=== PATIENT | female | born 1945 | race Caucasian/White ===

== ENCOUNTER 2023-02-19 14:06 | Emergency (ER) | payer MEDICARE, OTHER, SELFPAY ==
[2023-02-19 14:07] VITALS: BP 144/106; PULSE 121; RESP 16; TEMP 36.6; O2SAT 98
--- NOTE | 2023-02-19 14:12 | RAD_ITS ---
STUDY: X-RAY - LEFT WRIST REASON FOR EXAM: Female, 78 years old. Pain and deformity following a fall. TECHNIQUE: 3 view(s) of the wrist were obtained. COMPARISON: None. FINDINGS: Comminuted fracture of the distal radial metaphysis with dorsal dislocation of the distal fracture fragment. Normal radiocarpal articulation. Normal distal radioulnar articulation. Normal carpal bones. Normal carpal articulations. Normal carpometacarpal articulation of the thumb. Normal second through fifth carpometacarpal articulations. Normal visualized metacarpal bones. Soft tissue swelling. RAD/Wrist min 3 Views IMPRESSION: Comment a fracture of the distal radial metaphysis with dorsal dislocation of the distal fracture fragment. Diffuse soft tissue swelling. Electronically Signed: Vinny Dai MD at 14:28 EDT ,
--- NOTE | 2023-02-19 15:40 | EX.ED.UPPERE ---
HPI History of Present Illness HPI Narrative: Injury left wrist status post fall approximately 2 hours prior to presentation Chief Complaint: Upper Extremity Injury Informant: patient Occured/Mechanism Mechanism/Context: Yes fall and Yes same level fall Comment: And slipped on dust since their house is being remodeled. She stepped down hit the sergey floor fell with her arm outstretched. She presents with obvious deformity to the left wrist. Onset/Context/Timing Onset: Hours Context: Sudden Onset Timing: Continuous Quality of Pain: Dull Current Severity: Mild Maximum Severity: Moderate Worsened by: Movement Relieved by: Remaining still Associated Symptoms Associated Symptoms: Positive for Loss of Funtion; Negative for Parasthesia or Weakness Narrative Narrative: Patient is a 27-year-old woman who presents with injury to her left wrist status post fall. Patient denies paresthesia, anesthesia motors. Patient denies prior injury to the left wrist. She has history of wrist fracture, compound left tibial and fibular fracture as well as fracture of bones in her back. She does not have a local orthopedist since she relocated with family to from [place]. She is on no anticoagulant. She ate at [employer] with her son at 1215. She denies allergy to egg products or soy products. Tetanus Immunization: 5-10 years Prior similar symptoms: Yes Recent Illness/Hospitalization: No PFSH PFSH Medical History (Updated 02/19/23 @ 19:[address] Ravindra Young MD) Aortic aneurysm Back fracture Bowel obstruction Breast cancer Broken bones Cataracts, both eyes COPD (chronic obstructive pulmonary disease) Esophageal spasm HTN (hypertension) Migraine Osteoporosis Home Medications oxycodone-acetaminophen 5 mg-325 mg tablet 1 tab PO Q6H PRN PRN pain 5 days #20 TABLETS 02/19/23 [Rx Last Taken Unknown] Allergy/AdvReac Type Severity Reaction Status Date / Time hydrocodone Allergy Itching Verified 02/19/23 14:11 fentanyl AdvReac SENSITIVE Verified 02/19/23 14:11 hydrochlorothiazide AdvReac SUN Verified 02/19/23 14:11 SENSITIVITY Family History (Updated 02/19/23 @ 16:09 by Herlinda Laws) Father Lung cancer Surgical History (Updated 02/19/23 @ 16:09 by Herlinda Laws) H/O section H/O hemorrhoidectomy History of bowel resection History of tonsillectomy Hx of appendectomy Social History (Updated 02/19/23 @ 16:09 by Herlinda Laws) household members: family housing: house number of children: 3 pets and animals: Yes Smoking Status: Light Smoker (<10/day) substance use type: does not use ROS ROS ED Constitutional Constitutional ED: Denies chills, fever(s) or subjective Musculoskeletal Musculoskeletal: Denies back pain, myalgias or neck pain Integumentary Denies Abrasions or rash Neurologic Neurologic: Denies paresthesias or weakness Hematologic/Lymphatic Hematologic/Lymphatic: Denies easy bleeding or easy bruising EXAM Physical Exam Const Vital Signs: 02/19/23 14:07 Temperature 97.8 F Temperature Source Temporal Pulse Rate 121 H Respiratory Rate 16 Blood Pressure 144/106 H Blood Pressure Mean 118 Pulse Ox 98 Oxygen Delivery Method Room Air Positive well nourished and well developed General Appearance ED: well developed and NAD; Negative for cyanotic or diaphoretic HEENT Reports moist mucous membranes normocephalic and atraumatic Eyes PERRL and EOMs intact bilaterally Neck full ROM and supple Resp normal respiratory effort and clear to auscultation bilaterally Cardio regular rate, regular rhythm, S1 normal heart sound, S2 normal heart sound and no murmurs Extremity Negative for normal to inspection Extremity Narrative: Is a silver-fork deformity of her left wrist. Median, radial and ulnar function intact. Sensation of her thumb and digits are intact. Capillary refill of her digits is normal. There is no subungual hematoma noted. Neuro oriented x3, CN's II-XII intact bilaterally, no focal motor deficits and no sensory deficits noted Sensorium / Orientation: alert Psych mental status grossly normal Skin Lesions: no lesions Rashes: no rashes MDM MDM MDM Narrative Medical decision making narrative: Placed per nurse protocol. Patient has a comminuted distal radial fracture with bayonet apposition. There is significant soft tissue swelling. There appears to be fracture of the ulnar styloid. Patient will require reduction. IV was established. Patient was made NPO. She received Zosyn and morphine. Will place patient in finger traps and anesthetized by hematoma block. If this is unsuccessful will sedate using propofol. Patient states she is had propofol in the past and has had no problems. Radiography Diagnostic Testing: Clinical Impression(s) from Imaging Studies Wrist X-Ray 02/19/23 14:12 IMPRESSION: Comment a fracture of the distal radial metaphysis with dorsal dislocation of the distal fracture fragment. Diffuse soft tissue swelling. Electronically Signed: Vinny Dai MD at 14:28 EDT , Procedures Other Procedures Procedure(s): Hematoma block with 10 cc of 1% lidocaine Patient required supplementation because of time it took in finger traps. An additional 5 cc of 1% lidocaine was infused. Patient was placed in finger traps. 1 to 2 pounds was added every 15 minutes for a total of 8 pounds. Patient was taken out of fingertrap. Reduction was undertaken. Patient was placed in an AP short arm splint. Postreduction film reveals loss of volar tilt. There is an intra-articular component. There is no significant offset and is acceptable. Dr. San who is on fourth [facility] was paged. He looked at film. States it was acceptable. He would like patient to call office tomorrow to be seen next Friday or Friday. Discharge Plan Triage Chief Complaint: Upper Extremity Injury ED Provider: Ravindra Young Dx/Rx/DC Orders Clinical Impression: Intra-articular fracture of distal end of left radius with volar angulation Instructions: ED Fracture, Wrist, General Prescriptions: New oxycodone-acetaminophen [oxycodone-acetaminophen] 5-325 mg tablet 1 tab PO Q6H PRN PRN (Reason: pain) 5 Days Qty: 20 0RF Primary Care Provider: Care Physician,No Primary Referrals: Yinka San DO [[facility] Staff - Active Staff] - 5-7 Days [facility] Doctor,Out of [Non-Staff] - Activity Restrictions/Additional Instructions: 1. Elevate your wrist is much as possible during the day. My definition of elevation is above your nose 2. Apply ice 6-10 times a day 3. Call Dr. San's office in the morning to be seen next week on Friday or Friday Disposition Disposition: Home, Self Care
[2023-02-19] MEDS: Lidocaine 1% (20 ml mdv) 20 ML Vial 10 ML INFILT (15:56)
[2023-02-19] MEDS: Morphine 2 MG/ML Syringe IV ×3 (15:56→19:27)
[2023-02-19] MEDS: Ondansetron 4 MG/2 ML Vial IV (15:56)
--- NOTE | 2023-02-19 19:35 | RAD_ITS ---
STUDY: X-RAY - LEFT RADIUS AND ULNA REASON FOR EXAM: Female, 78 years old. REDUCTION TECHNIQUE: 2 view(s) of the forearm. COMPARISON: None. FINDINGS: There is no demonstrated soft tissue swelling. Plaster splint obscures detail. Comminuted intra-articular impacted fracture distal radius and ulna. Alignment appears improved. RAD/Forearm 2 Views IMPRESSION: Improved alignment of distal radial and ulnar fractures Electronically Signed: Frederick Lorenzo MD at 19:57 EDT ,
[2023-02-19 20:20] VITALS: RESP 16
== END 2023-02-19 21:04 | disposition home or self-care (01) ==
PROVIDERS: Emergency Provider Emergency Medicine; Visit Provider Emergency Medicine
DX: S52.572A Other intraarticular fracture of lower end of left radius, initial encounter for closed fracture (principal); F17.200 Nicotine dependence, unspecified, uncomplicated; W18.30XA Fall on same level, unspecified, initial encounter
CPT/HCPCS: 29125; 73090; 73110; 96374; 96375; 96376; 99284; A4216; J2405

== ENCOUNTER 2023-06-18 08:37 | Outpatient (CLI) | payer MEDICARE, OTHER, SELFPAY ==
[2023-06-18 10:06] LABS: Absolute Lymphocyte Count 2.01 X10^3/uL (0.83-4.51); Absolute Neutrophil Count 3.6 X10^3/uL (2.0-7.7); Basophil# 0.08 X10^3/uL; Basophil% 1.2 % (0-1); Eosinophil# 0.39 X10^3/uL; Eosinophils% 5.8 % (0-5); Hematocrit 45.5 % (37-47); Hemoglobin 14.5 g/dL (12.0-15.0); Lymphocyte # 2.01 X10^3/ul (0.83-4.51); Mean Corp Hgb Conc 31.9 g/dL (32-36); Mean Corpuscular Hgb 32.1 pg (27.0-32.0); Mean Corpuscular Volume 100.7 fL (81-99); Mean Platelet Vol. 9.7 fl (6.2-12.0); Monocyte# 0.63 X10^3/uL; Monocyte% 9.4 % (0-10); NRBC Flagged by Analyzer 0 % (0-5); Neutrophil # 3.55 X10^3/uL (2.7-7.7); Neutrophil % 53.2 % (47-70); Platelet Count 339 K/mm3 (150-450); RBC Distribution Width CV 12.7 % (11.6-14.6); RBC Distribution Width SD 47.1 fl (35.1-43.9); Red Blood Count 4.52 M/mm3 (4.2-5.4); White Blood Count 6.7 K/mm3 (4.4-11.0)
[2023-06-18 10:30] LABS: Vitamin D,25 Hydroxy 55.8 ng/mL
[2023-06-18 10:49] LABS: ALB/GLOB Ratio 0.9 RATIO (0.9-2.4); AST(SGOT) 19 U/L (15-37); Alanine Aminotransfer ALT/SGPT 26 U/L (13-56); Albumin, Serum 3.6 g/dL (3.2-5.0); Alkaline Phosphatase 104 U/L (45-117); Anion Gap 3 (5-15); BUN 14 mg/dL (7-18); Calcium,Total 9.1 mg/dL (8.5-10.1); Chloride 109 mmol/L (98-107); Cholesterol 115 mg/dL (200); Creatinine, Serum 0.88 mg/dL (0.55-1.02); EST Glomerular Filtration Rate 67 mL/min (>60); Est Glom Filt Rate - Afr Amer 81 mL/min (>60); Globulin 3.8 g/dL (2.2-4.2); Glucose 110 mg/dL (74-106); High Density Lipoprotein 57 mg/dL; Potassium 4.3 mmol/L (3.5-5.1); Protein, Total 7.4 g/dL (6.4-8.2); Sodium Level 141 mmol/L (136-145); Thyroid Stim Hormone (TSH) 0.01 uIU/mL (0.358-3.74); Triglycerides 87 mg/dL; Very Low Density Lipoprotein 17 mg/dL (5-40)
== END 2023-06-18 23:59 | disposition home or self-care (01) ==
LOC: MFPLAB 08:38
PROVIDERS: Visit Provider Family Medicine
DX: I71.40 Abdominal aortic aneurysm, without rupture, unspecified (principal); M81.0 Age-related osteoporosis without current pathological fracture; I10 Essential (primary) hypertension
CPT/HCPCS: 36415; 80053; 80061; 82306; 84443; 85025

== ENCOUNTER → 2023-07-03 | Outpatient (CLI) | payer MEDICARE, OTHER, SELFPAY ==
[2023-07-03 11:11] LABS: T4 Free Direct 1.59 ng/dL (0.76-1.46); Thyroid Stim Hormone (TSH) 0.01 uIU/mL (0.358-3.74)
[2023-07-04 06:09] LABS: Thyroid Peroxidase AB 81 IU/mL (0-34)
== END | disposition home or self-care (01) ==
LOC: MFPLAB 09:07
PROVIDERS: PCP Family Medicine; Visit Provider Family Medicine
DX: R79.89 Other specified abnormal findings of blood chemistry (principal); I10 Essential (primary) hypertension
CPT/HCPCS: 36415; 84439; 84443; 84481; 86376

== ENCOUNTER 2023-07-24 08:32 | Outpatient (CLI) | payer MEDICARE, OTHER, SELFPAY ==
--- NOTE | 2023-07-24 08:36 | AAVD_ITS ---
Reason For Study: aneurysm Aorta Measurements Aorta Doppler Measurements Proximal aorta measures2.45 x 2.29cm. in cross- Peak systolic flow velocities within the proximal sectional axis. aorta measure 72.3 cm/sec. Proximal aorta measures2.34cm. in longitudinal Peak systolic flow velocities within the mid aorta axis. measure 74.1 cm/sec. Mid aorta measures2.11 x 2.34cm. in cross- Peak systolic flow velocities within the distal sectional axis. aorta measure 77.7 cm/sec. Mid aorta measures2.19cm. in longitudinal axis. Distal aorta measures2.59 x 2.71cm. in cross- sectional axis. Distal aorta measures2.55cm. in longitudinal axis. Left Iliac Artery Left iliac artery measures .71 x .82 cm. in the cross-sectional axis. Left iliac artery measures .8 cm. in the longitudinal axis. Peak systolic velocity in the left iliac artery measures 90.4 cm/sec. Right Iliac Artery Right iliac artery measures .81 x .83 cm. in the cross-sectional axis. Right iliac artery measures .83 cm. in the longitudinal axis. Peak systolic velocity in the right iliac artery measures 81.4 cm/sec. VL/Abd Aortic/IVC Duplex scan Interpretation Summary The intra-abdominal aorta appears ectatic, though not frankly aneurysmal. The i liac arteries appear normal in caliber bilaterally. The intra-abdominal aorta and iliac arteries are patent, demonstrating normal, pulsatile arterial flow and normal peak systolic velociti es. Ordering Physician: Armen Durbin Referring Physician: Armen Durbin Performed By: Mathew Hilton RVT
== END 2023-07-24 23:59 | disposition home or self-care (01) ==
LOC: US 08:33
PROVIDERS: PCP Family Medicine; Referring Provider Family Medicine; Visit Provider Family Medicine
DX: I71.40 Abdominal aortic aneurysm, without rupture, unspecified (principal)
CPT/HCPCS: 93978

== ENCOUNTER → 2023-07-28 | Outpatient (CLI) | payer MEDICARE, OTHER, SELFPAY ==
--- NOTE | 2023-07-28 10:32 | ECHOD_ITS ---
Reason For Study: AORTIC ANEURYSM Procedure This was a 2D Doppler, Color Flow transthoracic echocardiogram. Exam performed in department. Left Ventricle Normal LV size. Left ventricular systolic function is normal. The estimated ejection fraction is 65 %. No regional wall motion abnormalities noted. Right Ventricle Normal RV size. Normal systolic function. Atria Normal left atrium. Normal right atrium. Mitral Valve Mild diffuse mitral valve thickening. Tricuspid Valve Mild diffuse thickening of the tricuspid valve. Mild to moderate (1-2+) tricuspid valve insufficiency. Pulmonary artery systolic pressure is 48 mmHg. Aortic Valve Trisinus/trileaflet aortic valve. Pulmonic Valve Normal pulmonic valve. Great Vessels Moderately dilated aortic root. The pulmonary artery is normal size. Inferior vena cava collapse with respiration. Pericardium/Pleural No pericardial effusion. MMode/2D Measurements & Calculations LVIDd: 4.2 cm IVSd: 1.2 cm LVOT diam: 1.9 cm LVIDs: 2.9 cm LVPWd: 0.92 cm LVOT area: 2.8 cm2 RVDd: 3.7 cm FS: 30.6 % Ao root diam: 4.4 cm LAV(MOD-sp2): 56.7 ml LVAd ap4: 20.8 cm2 LVLd ap4: 6.6 cm EDV(MOD-sp4): 53.3 ml EDV(sp4-el): 55.5 ml LVAs ap4: 11.1 cm2 LVLs ap4: 5.5 cm ESV(MOD-sp4): 19.3 ml ESV(sp4-el): 19.1 ml EF(MOD-sp4): 63.8 % EF(sp4-el): 65.6 % SV(MOD-sp4): 34.0 ml SV(sp4-el): 36.4 ml LA A4 area: 17.3 cm2 LA dimension(2D): 3.2 cm RA A4 area: 14.3 cm2 TAPSE: 1.9 cm Time Measurements MV dec time: 0.19 sec Doppler Measurements & Calculations MV E max napoleon: 74.7 cm/sec Lat Peak E' Napoleon: 10.4 cm/sec Med Peak E' Napoleon: 5.6 cm/sec MV A max napoleon: 53.8 cm/sec E/E' lat: 7.2 E/E' med: 13.2 MV E/A: 1.4 MV V2 max: 68.8 cm/sec Ao V2 max: 132.3 cm/sec MV max P.9 mmHg MV dec slope: 402.3 cm/sec2 Ao max P.0 mmHg MV V2 mean: 43.1 cm/sec Ao V2 mean: 92.3 cm/sec MV mean P.82 mmHg Ao mean P.9 mmHg MV V2 VTI: 31.4 cm Ao V2 VTI: 33.7 cm AV (velocity ratio): 0.55 MVA(VTI): 1.7 cm2 DUTCH(I,D): 1.6 cm2 DUTCH(V,D): 1.6 cm2 LV V1 max: 73.9 cm/sec SV(LVOT): 52.7 ml PA V2 max: 105.0 cm/sec LV V1 max P.2 mmHg PA V2 mean: 80.0 cm/sec LV V1 mean P.1 mmHg LV V1 mean: 47.5 cm/sec LV V1 VTI: 18.7 cm TR max napoleon: 329.4 cm/sec TR max P.4 mmHg ECHO/Echo Complete Interpretation Summary Normal LV size. Left ventricular systolic function is normal. The estimated ejection fraction is 65 %. Moderately dilated aortic root. Pulmonary artery systolic pressure is 48 mmHg. Ordering Physician: Armen Durbin Referring Physician: Armen Durbin Performed By: Twila Sheikh RCS
--- NOTE | 2023-07-28 10:32 | US_ITS ---
STUDY: THYROID ULTRASOUND REASON FOR EXAM: Female, 78 years old. Abnormal findings in blood TECHNIQUE: Ultrasound evaluation of the thyroid was performed with real-time and static kerr-scale imaging. COMPARISON: None. FINDINGS: RIGHT LOBE: The right lobe of the thyroid gland measures 3.9 cm x 1.6 cm x 1.4 cm. There is a heterogeneous echotexture. There are no demonstrated solid, cystic or complex lesions. Increased vascularity. LEFT LOBE: The left lobe of the thyroid gland measures 3.9 cm x 1.5 cm x 1.2 cm. There is a heterogeneous echotexture. There are no demonstrated solid, cystic or complex lesions. Increased vascularity. ISTHMUS: The isthmus measures 1.1 mm. The regional lymph nodes are normal. US/Thyroid IMPRESSION: Heterogeneous echotexture of both lobes of the thyroid gland. Increased vascularity of both lobes. No focal lesion is seen. Electronically Signed: Vinny Dai MD at 12:02 EDT ,
== END | disposition home or self-care (01) ==
LOC: CVS 10:31
PROVIDERS: PCP Family Medicine; Referring Provider Family Medicine; Visit Provider Family Medicine
DX: I71.21 Aneurysm of the ascending aorta, without rupture (principal); R79.89 Other specified abnormal findings of blood chemistry
CPT/HCPCS: 76536; 93306

== ENCOUNTER → 2023-07-29 | Outpatient (CLI) | payer MEDICARE, OTHER, SELFPAY ==
--- NOTE | 2023-07-29 09:28 | BI_ITS ---
MAMMOGRAPHY - BILATERAL SCREENING REASON FOR EXAM: Female, 78 years old. Routine annual screening examination. PERTINENT HISTORY: Personal history of breast cancer. Prior left lumpectomy with left axillary node dissection and radiation therapy. TECHNIQUE: Digital bilateral breast carine (3D mammographic acquisition) in the CC and MLO projections. 2-D mediolateral oblique (MLO) and craniocaudad (CC) views of both breasts were obtained. CAD: Full Field Digital Mammography with Computer Added Detection was performed. COMPARISON: Comparison is made with prior outside examination dated April 11, 2022. FINDINGS: Breast Composition: The breasts are heterogeneously dense, which may obscure small masses. There are no dominant masses or suspicious calcifications. The patient is status post lumpectomy in the upper lateral deep portion of the left breast with resultant postoperative scarring and breast deformity. Surgical clips are seen in the left axilla. No other significant abnormalities are identified. There has been no significant change since the prior study. BI/SCRN MAMM (CAD)W/CARINE BILAT IMPRESSION: Stable bilateral screening mammogram. Yearly follow-up mammogram recommended. (A) ASSESSMENT CATEGORY: BIRADS Category 2: Benign. A letter regarding these results will be sent to the patient by the facility within 30 days. Approximately 10% of breast cancers are not detected by mammography. A normal mammogram should not delay biopsy of a clinically suspicious abnormality. [id number] Electronically Signed: Vinny Dai MD at 12:25 EDT ,
== END | disposition home or self-care (01) ==
LOC: OPBI 09:27
PROVIDERS: PCP Family Medicine; Referring Provider Family Medicine; Visit Provider Family Medicine
DX: Z12.31 Encounter for screening mammogram for malignant neoplasm of breast (principal)
CPT/HCPCS: 77063; 77067

== ENCOUNTER → 2024-01-27 | Outpatient (CLI) | payer MEDICARE, OTHER, SELFPAY ==
[2024-01-27 12:47] LABS: T4 Free Direct 1.36 ng/dL (0.76-1.46); Thyroid Stim Hormone (TSH) 0.036 uIU/mL (0.358-3.740)
[2024-02-11 01:07] LABS: Anti-Thyroglobulin AB 10.5 IU/mL (0.0-0.9); Thyroglobulin RIA 3.4 ng/mL (.)
== END | disposition home or self-care (01) ==
LOC: MFPLAB 10:52
PROVIDERS: PCP Family Medicine; Visit Provider Family Medicine
DX: R79.89 Other specified abnormal findings of blood chemistry (principal); I10 Essential (primary) hypertension
CPT/HCPCS: 36415; 84432; 84439; 84443; 86800

== ENCOUNTER → 2024-02-06 | Outpatient (CLI) | payer MEDICARE, OTHER, SELFPAY ==
--- NOTE | 2024-02-06 09:02 | ECHOD_ITS ---
Reason For Study: DILATED AORTIC ROOT Procedure This was a 2D Doppler, Color Flow transthoracic echocardiogram. Exam performed in department. Left Ventricle Normal LV size. Left ventricular systolic function is normal. The left ventricular ejection fraction is 55 %. Stage 1 diastolic dysfunction. No regional wall motion abnormalities noted. Right Ventricle Normal RV size. Normal systolic function. Atria Normal left atrium. Normal right atrium. Mitral Valve Normal mitral valve. Mild-Moderate (1-2+) eccentric mitral valve insufficiency. Tricuspid Valve Normal tricuspid valve. Mild (1+) tricuspid valve insufficiency. Aortic Valve Trisinus/trileaflet aortic valve. Mild (1+) eccentric aortic valve insufficiency. Pulmonic Valve Normal pulmonic valve. Great Vessels Moderately dilated aortic root. Ascending aorta measures 4.5cm. The pulmonary artery is normal size. Normal inferior vena cava. Pericardium/Pleural No pericardial effusion. MMode/2D Measurements & Calculations LVIDd: 4.2 cm IVSd: 1.2 cm LVOT diam: 2.0 cm LVIDs: 2.9 cm LVPWd: 0.98 cm LVOT area: 3.2 cm2 RVDd: 3.6 cm FS: 31.5 % Ao root diam: 3.1 cm LAV(MOD-bp): 39.6 ml LVAd ap4: 21.4 cm2 LAV(MOD-bp) Indexed: 26.9 ml/m2 LVLd ap4: 7.1 cm LAV(MOD-sp2): 47.5 ml EDV(MOD-sp4): 52.4 ml LAV(MOD-sp4): 32.8 ml EDV(sp4-el): 54.9 ml LVAs ap4: 12.7 cm2 LVLs ap4: 5.9 cm ESV(MOD-sp4): 23.2 ml ESV(sp4-el): 23.1 ml EF(MOD-sp4): 55.7 % EF(sp4-el): 57.9 % SV(MOD-sp4): 29.2 ml SV(sp4-el): 31.8 ml LA A4 area: 14.4 cm2 LA dimension(2D): 2.7 cm RA A4 area: 10.2 cm2 Time Measurements MV dec time: 0.30 sec Doppler Measurements & Calculations MV E max iram: 58.3 cm/sec MV V2 max: 68.4 cm/sec MV dec slope: 202.8 cm/sec2 MV A max iram: 64.0 cm/sec MV max P.9 mmHg MV E/A: 0.91 MV V2 mean: 41.3 cm/sec MV mean P.77 mmHg MV V2 VTI: 22.5 cm MVA(VTI): 3.2 cm2 Ao V2 max: 111.8 cm/sec AI max iram: 487.9 cm/sec LV V1 max: 91.2 cm/sec Ao max P.0 mmHg AI max P.2 mmHg LV V1 max P.3 mmHg Ao V2 mean: 69.6 cm/sec AI dec slope: 319.6 cm/sec2 LV V1 mean P.6 mmHg Ao mean P.3 mmHg AI P1/2t: 447.1 msec LV V1 mean: 57.8 cm/sec Ao V2 VTI: 23.3 cm LV V1 VTI: 22.2 cm AV (velocity ratio): 0.95 DUTCH(I,D): 3.0 cm2 DUTCH(V,D): 2.6 cm2 SV(LVOT): 70.8 ml PA V2 max: 81.7 cm/sec PA V2 mean: 59.4 cm/sec ECHO/Echo Complete Interpretation Summary Normal LV size. Left ventricular systolic function is normal. The left ventricular ejection fraction is 55 %. Stage 1 diastolic dysfunction. Moderately dilated aortic root. Ascending aorta measures 4.5cm Ordering Physician: mAberly Whitehead Referring Physician: Amberly Whitehead Performed By: Twila Sheikh RCS
== END | disposition home or self-care (01) ==
PROVIDERS: PCP Family Medicine; Referring Provider Physician Assistant Medical; Visit Provider Physician Assistant Medical
DX: I71.9 Aortic aneurysm of unspecified site, without rupture (principal); R01.1 Cardiac murmur, unspecified
CPT/HCPCS: 93306

== ENCOUNTER → 2024-07-30 | Outpatient (CLI) | payer MEDICARE, OTHER, SELFPAY ==
[2024-07-30 12:16] LABS: Absolute Lymphocyte Count 1.86 X10^3/uL (0.83-4.51); Basophil# 0.09 X10^3/uL; Basophil% 0.9 % (0-1); Hematocrit 46.1 % (37-47); Lymphocyte # 1.86 X10^3/ul (0.83-4.51); Lymphocyte % 18.8 % (19-41); Mean Corp Hgb Conc 32.5 g/dL (32-36); Mean Corpuscular Hgb 32.4 pg (27.0-32.0); Mean Corpuscular Volume 99.6 fL (81-99); Mean Platelet Vol. 9.4 fl (6.2-12.0); Monocyte# 0.72 X10^3/uL; Monocyte% 7.3 % (0-10); NRBC Flagged by Analyzer 0 % (0-5); Neutrophil # 6.98 X10^3/uL (2.7-7.7); Neutrophil % 70.7 % (47-70); Platelet Count 356 K/mm3 (150-450); RBC Distribution Width CV 12.7 % (11.6-14.6); RBC Distribution Width SD 46.3 fl (35.1-43.9); Red Blood Count 4.63 M/mm3 (4.2-5.4); White Blood Count 9.9 K/mm3 (4.4-11.0)
[2024-07-30 12:40] LABS: Magnesium 2.1 mg/dL (1.5-2.2)
== END | disposition home or self-care (01) ==
LOC: MFPLAB 11:06
PROVIDERS: PCP Family Medicine; Referring Provider Family Medicine; Visit Provider Family Medicine
DX: I10 Essential (primary) hypertension (principal); R25.2 Cramp and spasm
CPT/HCPCS: 36415; 83735; 85025

== ENCOUNTER → 2024-08-10 | Outpatient (CLI) | payer MEDICARE, OTHER, SELFPAY ==
[2024-08-10 11:35] VITALS: PULSE 100; PULSE 105; PULSE 111; PULSE 117; PULSE 120; PULSE 125; PULSE 128; O2SAT 85; O2SAT 93; O2SAT 94; O2SAT 96; O2SAT 97; O2SAT 98
--- NOTE | 2024-08-12 12:34 | PCM.PSN.6M ---
PSN 6 Minute Walk Test 6 Minute Walk Test 6 Minute Walk Test: 6 Minute Walk Test PSN:6-Minute Walk Test Start: 08/10/24 11:35 Freq: Status: Active Protocol: [id number].6MINW Document 08/10/24 11:35 ARMANDOCHANSOFIA (Rec: 08/10/24 11:39 ARMANDOCHANON [id number]) 6 Minute Walk Test Date Performed 08/10/24 Time Performed 11:15 Height 5 ft 4 in Weight: 120 lb Weight in Pounds 120.[address]: Seb Heart Assistive device None used: Pre-test Oxygen Delivery Room Air Method Pulse Ox (%) 96 Pulse Rate (60-100 105 H beats/min) Dyspnea Ellyn Scale ( 0.5 0-10) Exertion Ellyn Scale 6 (6-20) 1st minute Oxygen Delivery Room Air Method Pulse Ox (%) 93 Pulse Rate (60-100 111 H beats/min) 2nd minute Oxygen Delivery Room Air Method Pulse Ox (%) 85 Pulse Rate (60-100 120 H beats/min) 3rd minute Oxygen Flow Rate (L/ 2 min) (L/min) Oxygen Delivery Nasal Cannula Method Pulse Ox (%) 97 Pulse Rate (60-100 117 H beats/min) 4th minute Oxygen Flow Rate (L/ 2 min) (L/min) Oxygen Delivery Nasal Cannula Method Pulse Ox (%) 96 Pulse Rate (60-100 125 H beats/min) 5th minute Oxygen Flow Rate (L/ 2 min) (L/min) Oxygen Delivery Nasal Cannula Method Pulse Ox (%) 94 Pulse Rate (60-100 125 H beats/min) 6th minute Oxygen Flow Rate (L/ 2 min) (L/min) Oxygen Delivery Nasal Cannula Method Pulse Ox (%) 93 Pulse Rate (60-100 128 H beats/min) Dyspnea Ellyn Scale ( 3 0-10) Exertion Ellyn Scale 12 (6-20) Post-test Oxygen Flow Rate (L/ 2 min) (L/min) Oxygen Delivery Nasal Cannula Method Pulse Ox (%) 98 Pulse Rate (60-100 100 beats/min) Full Laps Walked 17 Partial Lap, Number 8 of Tiles Walked Total Distance 1011 Walked (ft) Interpretation Interpretation: The patient ambulated 1011 feet over the course of 6 minutes beginning on room air without assistive devices. Pretesting oxygen saturation was noted to be 96% on room air. With ambulation, the juliet oxygen saturation was 85%. 2 L/min of supplemental oxygen was applied, and the patient was able to complete the remainder of the test while maintaining appropriate saturations. Recommendations Recommendations: 2 L/min of supplemental oxygen should be utilized with exertion.
== END | disposition home or self-care (01) ==
LOC: PSN 11:11
PROVIDERS: PCP Family Medicine; Referring Provider Internal Medicine Critical Care Medicine; Visit Provider Internal Medicine Critical Care Medicine
DX: J44.9 Chronic obstructive pulmonary disease, unspecified (principal)
CPT/HCPCS: 94618

== ENCOUNTER → 2024-08-12 | Outpatient (CLI) | payer MEDICARE, OTHER, SELFPAY | END | disposition home or self-care (01) | LOC: PSN 09:50 | PROVIDERS: PCP Family Medicine; Referring Provider Internal Medicine Critical Care Medicine; Visit Provider Internal Medicine Critical Care Medicine | DX: J44.9 Chronic obstructive pulmonary disease, unspecified (principal) | CPT/HCPCS: 94060; 94726; 94729 ==

== ENCOUNTER → 2024-09-23 | Outpatient (CLI) | payer MEDICARE, OTHER, SELFPAY ==
[2024-09-24 05:07] LABS: Alpha Antitrypsin Serum 150 mg/dL (101-187)
== END | disposition home or self-care (01) ==
LOC: PAVLAB 10:53
PROVIDERS: PCP Family Medicine; Referring Provider Nurse Practitioner Acute Care; Visit Provider Nurse Practitioner Acute Care
DX: E88.01 Alpha-1-antitrypsin deficiency (principal)
CPT/HCPCS: 36415; 82103

== ENCOUNTER → 2024-10-21 | Outpatient (CLI) | payer MEDICARE, OTHER, SELFPAY ==
--- NOTE | 2024-10-21 11:37 | CT_ITS ---
PROCEDURE: LOW DOSE CT LUNG SCREENING 10/21/2024 REASON FOR EXAM: SMOKING 2021 TECHNIQUE: LOW DOSE CT LUNG SCREENING Coronal and Sagittal reconstruction series were provided. One or more dose reduction techniques were used (e.g., Automated exposure control, adjustment of the mA and/or kV according to patient size, use of iterative reconstruction technique). [facility] RAD[facility] DOSE SUMMARY: CTDlvol: 2 mGy DLP: 68 mGycm COMPARISON: No FINDINGS: Central airways are patent. Moderately severe emphysema. On the left, there is upper lobe densities favoring scar/atelectasis, more acute airspace process, such as infection not completely excluded. Intrapulmonary lymph node. Series 601, image 185, 3 mm noncalcified upper lobe nodule. Series 602, image 95, 4 mm noncalcified lower lobe nodule. On the right, dependent atelectasis. Series 2, image 167, 4 mm noncalcified lower lobe nodule. Surgical clips left axilla. Unremarkable base of neck and right axilla. Thoracic spine degeneration. Normal esophagus. Normal heart size. Dilated ascending aorta, 4.4 cm cross-section. No acute vascular pathology on noncontrast scanning. Status post left breast lumpectomy. Old T8 wedge fracture. No acute chest wall findings. No acute upper abdominal findings. CT/Low Dose CT Lung Screening IMPRESSION: Bilateral noncalcified lung nodules measuring up to 4 mm. Lung-RADS Category: 2 Other Significant Findings: Left upper lobe airspace disease favoring postinfla mmatory scarring. More acute process not excluded. Three-month follow up imaging to further characterize, katy lala Reading Location: [facility]
== END | disposition home or self-care (01) ==
LOC: CT 11:32
PROVIDERS: PCP Family Medicine; Referring Provider Nurse Practitioner Acute Care; Visit Provider Nurse Practitioner Acute Care
DX: Z12.2 Encounter for screening for malignant neoplasm of respiratory organs (principal); F17.210 Nicotine dependence, cigarettes, uncomplicated
CPT/HCPCS: 71271

== ENCOUNTER → 2025-01-28 | Outpatient (CLI) | payer MEDICARE, OTHER, SELFPAY ==
--- NOTE | 2025-01-28 13:50 | CT_ITS ---
PROCEDURE: CHEST WITHOUT CONTRAST 01/28/2025 REASON FOR EXAM: ABNORMAL CHEST CT AND HIGH RISK PATIENT TECHNIQUE: Chest CT without contrast. Coronal and Sagittal reconstruction series were provided. One or more dose reduction techniques were used (e.g., Automated exposure control, adjustment of the mA and/or kV according to patient size, use of iterative reconstruction technique RADIATION DOSE SUMMARY: CTDlvol: 5.16 mGy DLP: 175.68 mGycm COMPARISON: 10/21/2024 FINDINGS: Lung windows again show underlying emphysema with a stable area of opacification in the lingula. Since it has not improved since the previous study, a sinister process can not be excluded and a PET/CT scan or biopsy is recommended for further evaluation. No organized infiltrate or effusion, no new suspicious noncalcified mass or nodule Soft tissue windows show a normal-appearing thyroid gland. No suspicious adenopathy. Peripheral calcifications in the thoracic aorta with aneurysmal dilatation of the ascending thoracic aorta at 4.6 cm. There are coronary artery calcifications. Limited cuts through the upper abdomen do not show any suspicious abnormality. Bony structures show degenerative change CT/Chest without Contrast IMPRESSION: Coronary artery calcification (CAC) is is present Severe underlying emphysema with stable lingular opacification which has not im proved or resolved since the previous study it actually has become larger now measuring 1.5 by 1.2 cm where on the previous it measured 1.1 x 0.6 cm. Recommend further evaluation with PET/CT scan or biopsy No organized infiltrate or effusion Stable aneurysmal dilatation of the ascending thoracic aorta at 4.6 cm. Reading Location: [place] [id number]
== END | disposition home or self-care (01) ==
LOC: CT 13:34
PROVIDERS: PCP Family Medicine; Referring Provider Nurse Practitioner Acute Care; Visit Provider Nurse Practitioner Acute Care
DX: R93.89 Abnormal findings on diagnostic imaging of other specified body structures (principal)
CPT/HCPCS: 71250

== ENCOUNTER → 2025-01-31 | Outpatient (CLI) | payer MEDICARE, OTHER, SELFPAY ==
[2025-01-31 12:28] LABS: Hematocrit 41.0 % (37-47); Hemoglobin 14.1 g/dL (12.0-15.0); Immature Granulocytes Count 0.020 X10^3/uL (0.0-0.0); Mean Corp Hgb Conc 34.4 g/dL (32-36); Mean Corpuscular Volume 96.2 fL (81-99); Mean Platelet Vol. 9.3 fl (6.2-12.0); NRBC Flagged by Analyzer 0 % (0-5); Platelet Count 306 K/mm3 (150-450); RBC Distribution Width CV 12.6 % (11.6-14.6); RBC Distribution Width SD 44.4 fl (35.1-43.9); Red Blood Count 4.26 M/mm3 (4.2-5.4); White Blood Count 7.4 K/mm3 (4.4-11.0)
[2025-01-31 13:23] LABS: AST(SGOT) 26 U/L (<=31); Alanine Aminotransfer ALT/SGPT 16 U/L (<=34); Albumin, Serum 4.3 g/dL (3.4-4.8); Alkaline Phosphatase 94 U/L (35-104); Anion Gap 13 (5-15); BUN 15 mg/dL (4-19); BUN/Creat Ratio 16.6 RATIO (10-20); Calcium,Total 10.0 mg/dL (7.6-11.0); Carbon Dioxide 24.8 mmol/L (21.0-32.0); Chloride 103 mmol/L (98-108); Cholesterol 145 mg/dL (<=200); Globulin 3.0 g/dL (2.2-4.2); Glucose 97 mg/dL (70-99); Low Density Lipoprotein Calc. 62 mg/dL; Potassium 3.9 mmol/L (3.3-5.1); Triglycerides 107 mg/dL; Very Low Density Lipoprotein 21 mg/dL (5-40); Vitamin D,25 Hydroxy 44.7 ng/mL (30-100); cholesterol:hdl ratio screen 2.34
[2025-02-03 08:08] LABS: Thyroid Stim Immunoglob 2.84 IU/L (0.00-0.55)
== END | disposition home or self-care (01) ==
LOC: MFPLAB 10:48
PROVIDERS: PCP Family Medicine; Visit Provider Family Medicine
DX: R79.89 Other specified abnormal findings of blood chemistry (principal); I10 Essential (primary) hypertension
CPT/HCPCS: 36415; 80053; 80061; 82306; 84439; 84443; 84445; 85025

== ENCOUNTER → 2025-02-09 | Outpatient (CLI) | payer MEDICARE, OTHER, SELFPAY ==
[2025-02-09 11:56] LABS: Platelet Count 336 K/mm3 (150-450)
[2025-02-09 12:02] LABS: Prothrombin Time (Protime)PT. 13.4 SECONDS (11.7-14.9)
[2025-02-09 12:03] LABS: Partial Thromboplast Time 42.2 Seconds (24.1-36.2)
== END | disposition home or self-care (01) ==
PROVIDERS: PCP Family Medicine; Referring Provider Nurse Practitioner Acute Care; Visit Provider Nurse Practitioner Acute Care
DX: I48.91 Unspecified atrial fibrillation (principal); R91.1 Solitary pulmonary nodule; R06.00 Dyspnea, unspecified
CPT/HCPCS: 85049; 85610; 85730

== ENCOUNTER 2025-02-25 13:05 | Observation (INO) | payer MEDICARE, OTHER, SELFPAY ==
[2025-02-25] VITALS (9 sets, daily range): BP systolic 98–120; BP diastolic 65–103; PULSE 69–80; RESP 17–21; TEMP 36.4–36.8; O2SAT 93–98; BMI 19.9
--- NOTE | 2025-02-25 13:27 | EX.ED.DYSGE1 ---
HPI History of Present Illness Chief Complaint: General Illness Narrative Narrative: Patient is a 80-year-old female presenting to the emergency department for a small pneumothorax that was seen outpatient after a lung biopsy. Patient has a past medical history of breast cancer, lung nodule that was biopsied today, smoking history, aortic aneurysm, COPD, hypertension, heart murmur. Patient states that she was scheduled for the biopsy today around 930 and started to have some shortness of breath and pain in her shoulder blade afterwards. They obtained x-rays 1 hour apart starting at 1030 that showed slightly increased size of the pneumothorax. She states she is now asymptomatic but was sent here for possible chest tube and observation. She denies any chest pain, shortness of breath at this time. [facility] Medical History Aortic root dilation Heart murmur Bowel obstruction Cataracts, both eyes Esophageal spasm Migraine Aortic aneurysm Osteoporosis HTN (hypertension) COPD (chronic obstructive pulmonary disease) Back fracture Broken bones Breast cancer Home Medications ?Medication ?Instructions ?Recorded ?Last Taken ?Type aspirin 81 mg tablet,delayed 81 mg PO DAILY 06/19/23 02/24/25 History release (Adult Aspirin Regimen) Held on 02/25/25. Instructions: MD Ordered cholecalciferol (vitamin D3) 25 25 mcg PO DAILY 06/19/23 02/24/25 History mcg (1,000 unit) capsule (Vitamin D3) omega 8-qit-xsd-fish oil 300 1 cap PO DAILY 06/19/23 02/24/25 History mg-1,000 mg capsule (Fish Oil) multivitamin 1 tab PO DAILY 07/02/23 02/24/25 History fluticasone fur. 100 mcg-umeclid 1 ea inhalation QDAY #60 ea 05/11/24 02/25/25 Rx 62.5 mcg-vilant 25 mcg inhalat.powder (Trelegy Ellipta) atorvastatin 20 mg tablet (Lipitor) 20 mg PO QHS #90 tabs 10/25/24 02/24/25 Rx candesartan 4 mg tablet 4 mg PO DAILY #90 tabs 10/25/24 02/25/25 Rx metoprolol succinate 25 mg 25 mg PO DAILY #90 tabs 02/02/25 02/24/25 Rx tablet,extended release 24 hr albuterol sulfate 90 mcg/actuation 2 inh inhalation Q4H PRN shortness 02/09/25 Unknown Rx aerosol inhaler (Ventolin HFA) of breath or wheezing #8.5 grams Allergy/AdvReac Type Severity Reaction Status Date / Time hydrocodone Allergy Itching Verified 02/25/25 13:07 fentanyl AdvReac SENSITIVE Verified 02/25/25 13:07 hydrochlorothiazide AdvReac SUN Verified 02/25/25 13:07 SENSITIVITY Family History Father Lung cancer Sister COPD (chronic obstructive pulmonary disease) Surgical History History of hysterectomy History of lumpectomy of left breast History of bowel resection H/O hemorrhoidectomy History of tonsillectomy H/O section Hx of appendectomy Social History household members: family housing: house number of children: 3 pets and animals: Yes Smoking Status: Current some day smoker tobacco type: cigarettes substance use type: does not use ROS ROS ED ROS Narrative See HPI EXAM Physical Exam Narrative Exam Narrative: Vital signs: Reviewed General: Alert and oriented x 3. No acute distress HEENT: Head is normocephalic and atraumatic, sinuses nontender, pupils equal round and reactive. Nares are patent. Oropharynx and throat exams normal. Neck: Supple without lymphadenopathy nontender Cardiovascular: Regular rate and rhythm, no murmurs. No rubs or gallops. Normal S1 and S2 Respiratory: Clear to auscultation bilaterally. No wheezes, rales, rhonchi Abdominal: Soft and nontender. Normal bowel sounds. No guarding or rebound. Nonsurgical abdomen Extremities: No lower extremity edema. No tenderness. No bruising. Normal range of motion. Normal sensation. Skin: No rash or redness. Neurological: Cranial nerves II through XII are grossly intact. Normal strength and sensation. Normal cerebellar function The rest of the physical exam is unremarkable Const Vital Signs: 02/25/25 13:08 02/25/25 13:13 02/25/25 13:33 Temperature 97.6 F L Temperature Source Oral Pulse Rate 69 Respiratory Rate 18 Respiratory Effort Normal Non-Labored Respiratory Pattern Normal Blood Pressure 120/103 H Blood Pressure Mean 108 Pulse Ox 93 Oxygen Delivery Method Room Air Nasal Cannula Oxygen Flow Rate (L/min) 2 02/25/25 14:06 02/25/25 14:59 02/25/25 15:16 Temperature 97.6 F L Temperature Source Pulse Rate 70 71 71 Respiratory Rate 18 18 Respiratory Effort Respiratory Pattern Blood Pressure 114/66 98/68 98/68 Blood Pressure Mean 82 78 78 Pulse Ox 98 98 98 Oxygen Delivery Method Nasal Cannula Room Air Oxygen Flow Rate (L/min) 2 MDM MDM MDM Narrative Medical decision making narrative: Patient is a 80-year-old female presenting the emergency department after having found a small left-sided pneumothorax after a lung biopsy done outpatient. Patient was seen and examined. Vitals are stable. Patient resting bed comfortably no acute distress. She saturating 95% on room air. Has no symptoms at time of evaluation. Last chest x-ray was done at 1245 and showed stable size of the pneumothorax. Placed patient on 2 L nasal cannula and repeated a chest x-ray here which per report shows worsening pneumothorax approximately 20%. On my review of the chest x-ray it appears very apical and it appears very similar to prior chest x-ray on my evaluation. I did speak with Dr. Valentine, general surgery, who recommends observing and repeat cxr in 4 hours. Will admit to hospitalist for observation on oxygen. Clinical impression: Pneumothorax History & Record Review Discussion w/independent historian: Patient Additional record(s) reviewed:: Prior outpatient record Radiography Chest X-Ray - ED: 2 View, Read by ED Physician and - (Small left apical pneumothorax) Diagnostic Testing: Clinical Impression(s) from Imaging Studies Chest X-Ray 02/25/25 14:50 IMPRESSION: 1. Severe emphysema 2. Worsening pneumothorax. Approximately 20%. Atelectasis in the lingula. Reading Location: [id number] Discharge Plan Triage Chief Complaint: General Illness ED Provider: Haley Richey Dx/Rx/DC Orders Prescriptions: No Action aspirin [Adult Aspirin Regimen] 81 mg tablet,delayed release (DR/EC) 81 mg PO DAILY cholecalciferol (vitamin D3) [Vitamin D3] 25 mcg (1,000 unit) capsule 25 mcg PO DAILY omega 5-xgm-mpl-fish oil [Fish Oil] 300-1,000 mg capsule 1 cap PO DAILY multivitamin Tablet 1 tab PO DAILY albuterol sulfate [Ventolin HFA] 90 mcg/actuation HFA aerosol inhaler 2 inh inhalation Q4H PRN (Reason: shortness of breath or wheezing) Qty: 8.5 11RF Trelegy Ellipta 100-62.5-25 mcg blister with device 1 ea inhalation QDAY Qty: 60 11RF candesartan 4 mg tablet 4 mg PO DAILY Qty: 90 3RF atorvastatin [Lipitor] 20 mg tablet 20 mg PO QHS Qty: 90 3RF metoprolol succinate 25 mg tablet extended release 24 hr 25 mg PO DAILY Qty: 90 3RF Primary Care Provider: Armen Durbin Referrals: Armen Durbin MD [Primary Care Provider, Family Practice] Print Language: Mohawk
--- NOTE | 2025-02-25 14:50 | RAD_ITS ---
PROCEDURE: CHEST PA AND LATERAL 02/25/2025 REASON FOR EXAM: PLEASE EVALUATE PNEUMO COMPARED TO LAST XR TECHNIQUE: Procedure Code: RADCXR Modality: DX Procedure: CHEST PA AND LATERAL COMPARISON: Multiple prior chest x-rays and CT dating 06/2024 FINDINGS: Hardware: EKG leads Heart: The heart size is normal. Mediastinum: There are atherosclerotic calcifications of the thoracic aorta. Lungs: Severe emphysema is present with hyperlucency in the upper lobes. Pneumothorax on the left with retraction of the visceral pleura from the apex 2.6 cm is seen (approximately 20%). Some relaxation atelectasis is present in the lingula. This has worsened from the recent prior. Bones: Degenerative changes are identified within the thoracic spine. RAD/Chest PA and Lateral IMPRESSION: 1. Severe emphysema 2. Worsening pneumothorax. Approximately 20%. Atelectasis in the lingula. Reading Location: [id number]
--- NOTE | 2025-02-25 16:40 | PCM.HP.STD ---
[facility] - General General Date of Service: 02/25/25 Chief Complaint: Back pain [facility] Narrative GRIS CURRY, is a 80 F who presents with back pain. Patient underwent a CT-guided lung biopsy for mass today. The collected good specimens however patient developed a pneumothorax and was sent to the emergency room. Subsequent x-ray showed gradual increased size of the pneumothorax. Patient was placed on oxygen. Patient was seen in consultation by Dr. Valentine who advised conservative management this time and repeat the chest x-ray at 1900 today. Patient denies any chest pain but stated that she just had this very small area in her posterior back that hurt after the biopsy. [ ] [facility] Medical History Aortic root dilation Heart murmur Bowel obstruction Cataracts, both eyes Esophageal spasm Migraine Aortic aneurysm Osteoporosis HTN (hypertension) COPD (chronic obstructive pulmonary disease) Back fracture Broken bones Breast cancer Home Medications ?Medication ?Instructions ?Recorded ?Last Taken ?Type aspirin 81 mg tablet,delayed 81 mg PO DAILY 06/19/23 02/24/25 History release (Adult Aspirin Regimen) Held on 02/25/25. Instructions: MD Ordered cholecalciferol (vitamin D3) 25 25 mcg PO DAILY 06/19/23 02/24/25 History mcg (1,000 unit) capsule (Vitamin D3) omega 2-qnl-yrb-fish oil 300 1 cap PO DAILY 06/19/23 02/24/25 History mg-1,000 mg capsule (Fish Oil) multivitamin 1 tab PO DAILY 07/02/23 02/24/25 History fluticasone fur. 100 mcg-umeclid 1 ea inhalation QDAY #60 ea 05/11/24 02/25/25 Rx 62.5 mcg-vilant 25 mcg inhalat.powder (Trelegy Ellipta) atorvastatin 20 mg tablet (Lipitor) 20 mg PO QHS #90 tabs 10/25/24 02/24/25 Rx candesartan 4 mg tablet 4 mg PO DAILY #90 tabs 10/25/24 02/25/25 Rx metoprolol succinate 25 mg 25 mg PO DAILY #90 tabs 02/02/25 02/24/25 Rx tablet,extended release 24 hr albuterol sulfate 90 mcg/actuation 2 inh inhalation Q4H PRN shortness 02/09/25 Unknown Rx aerosol inhaler (Ventolin HFA) of breath or wheezing #8.5 grams Allergy/AdvReac Type Severity Reaction Status Date / Time hydrocodone Allergy Itching Verified 02/25/25 13:07 fentanyl AdvReac SENSITIVE Verified 02/25/25 13:07 hydrochlorothiazide AdvReac SUN Verified 02/25/25 13:07 SENSITIVITY Family History Father Lung cancer Sister COPD (chronic obstructive pulmonary disease) Surgical History History of hysterectomy History of lumpectomy of left breast History of bowel resection H/O hemorrhoidectomy History of tonsillectomy H/O section Hx of appendectomy Social History household members: family housing: house number of children: 3 pets and animals: Yes Smoking Status: Current some day smoker tobacco type: cigarettes substance use type: does not use ROS ROS Narrative All review of systems were negative except as mentioned above in the history of present illness and the other review of systems. Vital Signs Vital Signs Vital Signs: 02/25/25 13:08 02/25/25 13:13 02/25/25 13:33 Temperature 36.4 C L Temperature Source Oral Pulse Rate 69 Respiratory Rate 18 Respiratory Effort Normal Non-Labored Respiratory Pattern Normal Blood Pressure 120/103 H Blood Pressure Mean 108 Pulse Ox 93 Oxygen Delivery Method Room Air Nasal Cannula Oxygen Flow Rate (L/min) 2 02/25/25 14:06 02/25/25 14:59 02/25/25 15:16 Temperature 36.4 C L Temperature Source Pulse Rate 70 71 71 Respiratory Rate 18 18 Respiratory Effort Respiratory Pattern Blood Pressure 114/66 98/68 98/68 Blood Pressure Mean 82 78 78 Pulse Ox 98 98 98 Oxygen Delivery Method Nasal Cannula Room Air Oxygen Flow Rate (L/min) 2 02/25/25 16:00 Temperature Temperature Source Pulse Rate 69 Respiratory Rate 21 H Respiratory Effort Respiratory Pattern Blood Pressure 101/65 Blood Pressure Mean 77 Pulse Ox 98 Oxygen Delivery Method Room Air Oxygen Flow Rate (L/min) Physical Exam Const alert and no apparent distress Constitutional Narrative: Resting comfortably sitting up in the bed. No respiratory distress. No conversational dyspnea. HEENT normocephalic, head/scalp atraumatic, hearing grossly normal bilaterally and moist oral mucous membranes Neck no lymphadenopathy Resp normal respiratory effort, no retractions, no use of accessory muscles and clear to auscultation bilaterally Cardio regular rate, regular rhythm, S1 normal heart sound and S2 normal heart sound GI normal to inspection, nondistended, normoactive bowel sounds, soft to palpation, non-tender and non-distended Extremity normal to inspection and full ROM Neuro Sensorium / Orientation: awake and alert Psych affect normal Results Lab / Micro Data Attestation: I reviewed the patient's lab results. Imaging Radiology Impression Chest X-Ray 02/25/25 14:50 IMPRESSION: 1. Severe emphysema 2. Worsening pneumothorax. Approximately 20%. Atelectasis in the lingula. Reading Location: [id number] Assessment & Plan Assessment/Plan (1) Pneumothorax after biopsy: PLAN: Left-sided. Most recent chest x-ray showed that it was worsening approximate 20%. Patient was seen along with Dr. Valentine, who is planning on monitoring for now. Repeat CXR at 1900, then in AM. If worse, she may need chest tube. PLAN: Plan Lung Mass: Biopsy performed. Follow-up with oncology Osteoporosis:: Continue with D3 VTE prophylaxis: Low risk at this time given observation status. CODE STATUS: Addressed with the patient. Patient wishes to be full code Disposition: To be determined. If follow-up x-rays look stable patient does not require chest tube and it is possible she may be able to discharged on February 26 but she does require chest tube and that we will likely prolong her hospitalization. Charges/Coding Visit Charges Inpatient E&M: 35512 Init Hosp L2
--- OUTSIDE RECORDS SUMMARY | 2025-02-25 17:04 | XMS RPT_ITS | CCD ---
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 Pawan Beal Attending Provider 1([facility])[phone] MD rAmen Durbin Primary Care Provider 1([facility])[phone] Ramakrishna KC, Armen Primary Care Provider Armen Durbin MD Attending Provider 1([facility])[phone] Armen Durbin MD Referring Provider 1([facility])[phone] Seb Heart DO Attending Provider 1([facility])[phone] Dr. Seb Heart DO Referring Provider 1([facility])[phone] Dr. Seb Heart DO Other Provider 1([facility])[phone] Pawan Beal MD Attending Provider 1([facility])[phone] Tio DIESEL FLEET MECHANIC-CEmily Attending Provider Tio DIESEL FLEET MECHANIC-C, Emily Referring Provider Armen Durbin MD Primary Care Physician 1([facility])[phone] Armen Durbin MD Referring Provider 1([facility])[phone] Tio DIESEL FLEET MECHANIC-C, Emily Attending Physician 1([facility] )[phone] Tio DIESEL FLEET MECHANIC-C, Emily Referring Provider Armen Durbin MD Attending Physician 1([facility])[phone] Ramakrishna, Chalon Primary Care Unavailable Ramakirshna, Chalon Referring Unavailable Emily Kinsey NP Attending Unavailable Ramakrishna, Chalon Primary Care Unavailable Ramakrishna, Chalon Referring Unavailable Pawan Beal Attending Unavailable Seb Heart Attending Unavailable Ramakrishna, Chalon Primary Care Unavailable Ramakrishna, Chalon Referring Unavailable Ramakrishna, Chalon Primary Care Unavailable Ramakrishna, Chalon Referring Unavailable Tio DIESEL FLEET MECHANICEmily Attending Unavailable Ramakrishna, Chalon Primary Care Unavailable Brown, Seb Attending Unavailable Brown, Seb Consulting Unavailable Brown, Seb Referring Unavailable Brown, Seb Referring Unavailable Ramakrishna, Chalon Primary Care Unavailable Brown, Seb Attending Unavailable Ramakrishna, Chalon Primary Care Unavailable Kinsey DIESEL FLEET MECHANIC, Emily Referring Unavailable Kinsey DIESEL FLEET MECHANIC, Emily Attending Unavailable Ramakrishna, Chalon Primary Care Unavailable Kinsey DIESEL FLEET MECHANIC, Emily Referring Unavailable Kinsey DIESEL FLEET MECHANIC, Emily Attending Unavailable Brown, Seb Attending Unavailable Ramakrishna, Chalon Primary Care Unavailable Brown, Seb Referring Unavailable Ramakrishna, Chalon Primary Care Unavailable Ramakrishna, Chalon Referring Unavailable Ramakrishna, Chalon Attending Unavailable Ramakrishna, Chalon Primary Care Unavailable Iknsey DIESEL FLEET MECHANIC, Emily Attending Unavailable Kinsey DIESEL FLEET MECHANIC, Emily Referring Unavailable Ramakrishna, Chalon Primary Care Unavailable Kinsey DIESEL FLEET MECHANIC, Emily Attending Unavailable Kinsey DIESEL FLEET MECHANIC, Emily Referring Unavailable Ramakrishna, Chalon Attending Unavailable Ramakrishna, Chalon Primary Care Unavailable Ramakrishna, Chalon Primary Care Unavailable Kinsey DIESEL FLEET MECHANIC, Emily Referring Unavailable Kinsey DIESEL FLEET MECHANIC, Emily Attending Unavailable Ramakrishna, Chalon Primary Care Unavailable Ramakrishna, Chalon Referring Unavailable Kinsey DIESEL FLEET MECHANIC, Emily Attending Unavailable Allergies Allergy Classification Reported Allergen(s) Allergy Type Date of Onset Reaction(s) Facility (13 sources) fentaNYL Drug Allergy 02-20-20 23 SENSITIVE [facility] (13 sources) hydroCHLOROthiazide Drug Allergy 02-20-20 SUN SENSITIVITY [facility] (13 sources) HYDROcodone Drug Allergy 02-20-20 Itching [facility] (1 source) fentaNYL Drug Allergy 02-10-20 [facility] Repository (1 source) hydroCHLOROthiazide Drug Allergy 02-10-20 [facility] Repository (1 source) HYDROcodone Drug Allergy 02-10-20 [facility] Repository Medications Current Medications Medication Drug Class(es) Dates Sig (Normalized) Sig (Original) [id number] 200 actuat albuterol 0.09 mg/actuat metered dose inhaler (20 sources) beta2-Adrenergic Agonist Start: 05-11-2024 End: 02-09-2025 Start: 06-19-2023 End: 05-11-2024 Albuterol Sulfate (Ventolin Hfa) 90 mcg/actuation HFA aerosol inhaler Discontinued 2 NMA INHALATION EVERY 6 HOURS as needed June 19, 2023 1:00am May 11, 2024 10:55am Start: 06-19-2023 take 1 puff(s) by in halation every six hours Albuterol Sulfate (Ventolin Hfa) 90 mcg/actuation HFA aerosol inhaler Active 2 PUFF INHALATION EVERY 6 HOURS June 19, 2023 1:00am aspirin 81 mg delayed release oral tablet (12 sources) Platelet Aggregation Inhibitor, Nonsteroidal Anti-inflammatory Drug Start: 06-19-2023 take 1 tablet by mouth once daily cholecalciferol 0.025 mg oral capsule (12 sources) Vitamin D Start: 06-19-2023 take 1 capsule by mouth once daily Lynn 2-Jnm-Eab-Fish Oil (12 sources) Start: 06-19-2023 Start: 06-19-2023 Lynn 3-Dha-Ep a-Fish Oil (Fish Oil) 300-1,000 mg capsule Active 1 NMA PO DAILY June 19, 2023 1:00am Start: 06-19-2023 take 300-1000 mg by mouth once daily Lynn 0-Jja-Uve-Fish Oil (Fish Oil) 300-1,000 mg capsule Active 1 CAP PO DAILY June 19, 2023 1:00am Hhyolxjnxvt-Jgtgusued-Ipevbf er (16 sources) Anticholinergic, Corticosteroid, beta2-Adrenergic Agonist Start: 05-11-2024 Start: 05-11-2024 Fluticasone-Um eclidin-Vilanter (Trelegy Ellipta) 100-62.5-25 mcg blister with device Active 1 NMA INHALATION daily 60 May 11, 2024 10:54am Start: 05-11-2024 Fluticasone-Um eclidin-Vilanter (Trelegy Ellipta) 100-62.5-25 mcg blister with device Active 1 NMA INHALATION daily May 11, 2024 10:54am Start: 03-23-2024 End: 05-11-2024 Hurdowuzpzq-Zeiyrheyn-Viaitl er (Trelegy Ellipta) 100-62.5-25 mcg blister with device Discontinued 1 NMA INHALATION daily March 23, 2024 1:00am May 11, 2024 10:55am Multivitamin preparation (4 sources) Start: 07-02-2023 take 1 tablet by mouth once daily Multivitamin Active 1 TABLET PO DAILY July 02, 2023 1:00am Multivitamin tablet (8 sources) Start: 07-02-2023 Start: 07-02-2023 Multivitamin t ablet Active 1 {tbl} PO DAILY July 02, 2023 1:00am Completed/Discontinued Medications Medication Drug Class(es) Dates Sig (Normalized) Sig (Original) acetaminophen 325 mg / oxyCODONE hydrochloride 5 mg oral tablet (13 sources) Opioid Agonist Start: 02-19-2023 End: 07-02-2023 Oxycodone-Acetamino phen 5-325 mg tablet Discontinued 1 {tbl} PO EVERY 6 HOURS NEEDED as needed for pain February 19, 2023 July 02, 2023 12:14pm Intra-articular fracture of distal end of left radius with volar angulation Start: 02-19-2023 End: 07-02-2023 take 1 tablet by mouth every six hours as needed Oxycodone-Acetaminophen Discontinued 1 TABLET PO EVERY 6 HOURS NEEDED 14 09February 19, 2023 July 02, 2023 12:14pm atorvastatin 20 mg oral tablet (20 sources) HMG-CoA Reductase Inhibitor Start: 06-19-2023 End: 10-25-2024 take 1 tablet by mouth at bedtime Atorvastatin (Lipitor) 20 mg tablet Discontinued 20 mg PO AT BEDTIME November 03, 2023 11:54am October 25, 2024 12:04pm candesartan cilexetil 4 mg oral tablet (20 sources) Angiotensin 2 Receptor Adam Start: 06-19-2023 End: 10-25-2024 take 1 tablet by mouth once daily Candesartan 4 mg tablet Discontinued 4 mg PO DAILY 90 November 03, 2023 11:54am October 25, 2024 12:04pm 24 hr metoprolol succinate 25 mg extended release oral tablet (20 sources) beta-Adrenergic Adam Start: 06-19-2023 End: 02-02-2025 take 1 tablet by mouth once daily Metoprolol Succinate 25 mg tablet extended release 24 hr Discontinued 25 mg PO DAILY 90 February 02, 2025 11:47am February 02, 2025 11:47am 7 actuat umeclidinium 0.0625 mg/actuat / vilanterol 0.025 mg/actuat dry powder inhaler (12 sources) Anticholinergic, beta2-Adrenergic Agonist Start: 06-19-2023 End: 03-23-2024 Umeclidinium-Vilan terol (Anoro Ellipta) 62.5-25 mcg/actuation blister with device Discontinued 1 NMA INHALATION DAILY June 19, 2023 1:00am March 23, 2024 11:33am Start: 06-19-2023 Umeclidinium-V ilanterol (Anoro Ellipta) 62.5-25 mcg/actuation blister with device Active 1 INH INHALATION DAILY June 19, 2023 1:00am Problems Problem Classification Problem Date Documented Date Episodic/Chronic Aortic; peripheral; and visceral artery aneurysms (20 sources) Aortic aneurysm; Translations: [Aortic aneurysm of unspecified site, without rupture] 07-02-2023 Chronic Comment on above: upper and lower Cancer of breast (2 sources) Malignant tumor of breast ; Translations: [Malignant neoplasm of unspecified site of unspecified female breast] 02-09-2025 Chronic Cardiac dysrhythmias (1 source) Unspecified atrial fibrillation; Translations: [Unspecified atrial fibrillation] Onset: 02-22-2025 Chronic Chronic obstructive pulmonary disease and bronchiectasis (20 sources) Chronic obstructive lung disease; Translations: [Chronic obstructive pulmonary disease, unspecified] Onset: 08-16-2024 06-18-2023 Chronic Comment on above: FEV1 57% Esophageal disorders (12 sources) Esophageal dysmotility; Translations: [Dyskinesia of esophagus] 07-02-2023 Chronic Essential hypertension (20 sources) Hypertensive disorder; Translations: [Essential (primary) hypertension] Onset: 08-05-2024 06-18-2023 Chronic Fracture of upper limb (13 sources) Fracture of lower end of radius with volar tilt; Translations: [Other intraarticular fracture of lower end of left radius, initial encounter for closed fracture] 02-19-2023 Episodic Headache; including migraine (12 sources) Migraine; Translations: [Migraine, unspecified, not intractable, without status migrainosus] 07-02-2023 Chronic Heart valve disorders (12 sources) Heart murmur; Translations: [Cardiac murmur, unspecified] 06-18-2023 Episodic Osteoporosis (12 sources) Osteoporosis; Translations: [Age-related osteoporosis without current pathological fracture] 07-02-2023 Chronic Other lower respiratory disease (2 sources) Solitary nodule of lung; Translations: [Solitary pulmonary nodule] 02-09-2025 Episodic Other lower respiratory disease (1 source) Other nonspecific abnormal finding of lung field; Translations: [Other nonspecific abnormal finding of lung field] Onset: 02-18-2025 Episodic Other lower respiratory disease (1 source) Solitary pulmonary nodule; Translations: [Solitary pulmonary nodule] Onset: 02-18-2025 Episodic Other lower respiratory disease (1 source) Dyspnea, unspecified; Translations: [Dyspnea, unspecified] Onset: 02-09-2025 Episodic Other nutritional; endocrine; and metabolic disorders (11 sources) Lxlkz-0-netmbtcbrte deficiency; Translations: [Wpbcq-0-xdbvcqohxnx deficiency] 09-23-2024 Chronic Comment on above: Genetic screening in dicates M/S Other nutritional; endocrine; and metabolic disorders (1 source) Jrjdr-8-fwcnxclwayz deficiency; Translations: [Vwaef-9-csojbujvtnr deficiency] Onset: 09-28-2024 Chronic Other screening for suspected conditions (not mental disorders or infectious disease) (7 sources) CT of chest abnormal; Translations: [Abnormal findings on diagnostic imaging of other specified body structures] Onset: 02-21-2025 10-25-2024 Chronic Other screening for suspected conditions (not mental disorders or infectious disease) (2 sources) Other specified abnormal findings of blood chemistry; Translations: [Encounter for screening for malignant neoplasm of respiratory organs] Onset: 10-26-2024 Episodic Respiratory failure; insufficiency; arrest (adult) (12 sources) Chronic hypoxemic respiratory failure; Translations: [Chronic respiratory failure with hypoxia] 09-23-2024 Chronic Substance-related disorders (20 sources) Tobacco dependence caused by cigarettes; Translations: [Nicotine dependence, cigarettes, in remission] Onset: 03-23-2024 03-23-2024 Chronic Comment on above: Quit 2021 Results Test Name Value Interpretation Reference Range Facility Activated partial thrombopla stin time (aPTT) in platelet poor plasma by coagulation aOrdered By: Emily Kinsey on 02-09-2025 aPTT Coag (PPP) [Time] 42.2 s High 24.1-36.2 [facility] normalized rat io (INR) calculationOrdered By: Emily Kinsey on 02-09-2025 INR Coag (Bld) [Relative time] 1.0 {INR} [facility] Partial Thromboplast Timeon 02-09-2025 aPTT Coag (Bld) [Time] 42.2 s High 24.1-36.2 [facility] Comment on above: Performed By: #### L 300.3900, L300.4310, L100.1900 ####[facility] [address] [place], [address] Platelet Counton 02-09-2025 Platelets (Bld) [#/Vol] 336 10*3/uL Normal 150-450 [facility] Comment on above: Performed By: #### L 300.3900, L300.4310, L100.1900 ####[facility] [address] [place], [address] Platelet countOrdered By: Alana Kinsey on 02-09-2025 Platelets (Bld) [#/Vol] 336 10*3/uL 150-450 [facility] Prothrombin Time w/INRon INR Coag (PPP) [Relative time] 1.0 {INR} Normal [facility] Comment on above: Performed By: #### L 300.3900, L300.4310, L100.1900 ####[facility] [address] [place], [address] PT Coag (PPP) [Time] 13.4 s Normal 11.7-14.9 [facility] Comment on above: Performed By: #### L 300.3900, L300.4310, L100.1900 ####[facility] [address] [place], [address] Prothrombin timeOrdered By: Emily Kinsey on 02-09-2025 PT Coag (PPP) [Time] 13.4 s 11.7-14.9 [facility] Pulmonary Visit Reporton Pulmonary Visit Report [facility] [address] [place] [address] OFFICE VISIT Date of Service: 02/09/25 MR#: [id number] Acct: [id number] Name: GRIS CURRY Rep #: [id number] : 1945 Provider: LONNIE Kinsey Age/Sex: 80/F Location: [facility] Status: Signed Assessment and Plan Assessment and Plan (1) Lung nodule, solitary: Status: Acute Plan: Deteriorated. Left lower lobe area of concern has increased in size. This previously measured 1.1 x 0.6 cm, now measuring 1.5 x 1.2 cm. This case was discussed with interventional radiology. Plan to proceed with CT biopsy after extensive discussion of risks and benefits of each. Return to the office in 3 weeks to discuss pathology test results. (2) COPD (chronic obstructive pulmonary disease): Status: Chronic Qualifiers: COPD type: emphysema Emphysema type: centrilobular Qualified Code(s): J43.2 - Centrilobular emphysema Comment: FEV1 57% Plan: She does not appear to be an exacerbation of COPD today. No need for prednisone or antibiotic. Continue current maintenance medication, she is symptomatically controlled with the use of triple therapy on Trelegy. No additional testing at this time. Contact the office for any new or worsening symptoms. An acute visit and typically be arranged within 1-2 days. Follow-up in 3 months. (3) Chronic hypoxic respiratory failure: Status: Chronic Plan: She is using and benefiting from supplemental oxygen. She has been encouraged to continue to use supplemental oxygen with sleep. She is also asked to monitor saturations and maintain a sat of 89 to 92%, titrating supplemental oxygen as needed. (4) Breast cancer: Status: Chronic Qualifiers: Breast location: unspecified site of breast Estrogen receptor status: unspecified Patient sex: female Laterality: unspecified laterality Qualified Code(s): C50.919 - Malignant neoplasm of unspecified site of unspecified female breast Plan: History of breast cancer approximately 30 years ago. This complicates the exam, plan, care and prognosis. Because the patient has a history of breast cancer she is nervous about a cancer diagnosis and reoccurrence. She feels more comfortable with a biopsy, even though there is more risk involved, hoping to get a more definitive answer. Orders: Orders Biopsy/Inj or Needle Placement Today R91.1 - Solitary pulmonary nodule, R91.8 - Other nonspecific abnormal finding of lung field Partial Thromboplast Time Today I48.91 - Unspecified atrial fibrillation, R91.1 - Solitary pulmonary nodule Prothrombin Time w/INR Today I48.91 - Unspecified atrial fibrillation, R91.1 - Solitary pulmonary nodule Platelet Count Today R06.00 - Dyspnea, unspecified, R91.1 - Solitary pulmonary nodule Medications: Refilled albuterol sulfate 90 mcg/actuation (Ventolin HFA) 2 inhalations inhalation Q4H PRN 8.5 grams 11RF shortness of breath or wheezing Plan Details Additional Comments: This note was generated with [employer] dictation software. It may contain incorrect words, spelling, and punctuation that were not noted in checking the note before signing. Portions of this documentation have been copied and pasted from previous office visit notes to provide a cohesive continuity of the history. The note has been reviewed, edited, and updated, as necessary. I have spent 40 minutes today reviewing labs, records and history. Time includes coordinating care, interpretation of tests, discussion with interventional radiology via telephone. This also includes time I spent with the patient for exam, treatment plan and education as well as documenting clinical information. Follow Up: 3 Weeks HPI 3 M FU Chief Complaint: test results HPI Comments Details: This patient presents to the office today for follow-up of her COPD with chronic hypoxic respiratory failure complicated by a history of breast cancer and to discuss test results. She is ambulatory. She has not recently been seen in the ED or urgent care for any respiratory illness. She has not required any antibiotics or prednisone for any breathing problems. She is compliant with use Trelegy 1 puff daily. She does report rinsing her mouth out after each use. She denies any medication side effect such as sore throat or thrush. She has not recently needed her albuterol rescue inhaler. She is compliant with Trelegy 1 puff daily. She does report rinsing her mouth out thoroughly after each use. She denies any medication side effects such as sore throat or thrush. She is using albuterol nebulized twice weekly. She continues complete smoking cessation, quitting completely back in 2022. She uses with oxygen at 2 LPM while exercising and on exertion and with sleep. She has shortness of breath on exertion. She denies any cough, sputum producti (more content not included)... Normal [facility] Thyroid Stim Immunoglobon THY STIM IMMUNO 2.84 IU/L Abnormal 0.00-0.55 [facility] Comment on above: Result Comment: Perf ormed at: - [facility] [address] [id number] Learning Support Assistant: Noemi Han MD, Phone: [phone] Performed By: #### L 501.9520, L100.0100, L506.1001, L506.0400, L500.4050, L3400.4700, L500.4100 ####[facility] [address] [place], [place], [id number] Absolute lymphocyte countOrd ered By: Armen Durbin on 01-31-2025 Lymphocytes Auto (Unsp spec) [#/Vol] 1.68 10*3/uL 0.83-4.51 [facility] Absolute neutrophil countOrd ered By: Armen Durbin on 01-31-2025 Neutrophils (Bld) [#/Vol] 4.8 10*3/uL 2.0-7.7 [facility] Anion gap in Serum or Plasma Ordered By: Armen Durbin on 01-31-2025 Anion gap [Moles/Vol] 13 mmol/L 5-15 [facility] Automated lymphocyte count a s percentage of total leukocytesOrdered By: Armen Durbin on 01-31-2025 Lymphocytes/100 WBC Auto (Unsp spec) 22.7 % 19-41 [facility] BUN/creatinine ratioOrdered By: Armen Durbin on 01-31-2025 Urea nitrogen/Creatinine [Mass ratio] 16.6 mg/mg 10-20 [facility] Basophil percentageOrdered B y: Armen Durbin on 01-31-2025 Basophils/100 WBC (Bld) 0.8 % 0-1 [facility] Bilirubin, totalOrdered By: Armen Durbin on 01-31-2025 Bilirubin [Mass/Vol] 0.80 mg/dL 0.00-1.30 [facility] CBC W/Diff, Automatedon 10 Absolute Lymph 1.68 X10 3/uL Normal 0.83-4.51 [facility] Comment on above: Performed By: #### L 501.9520, L100.0100, L506.1001, L506.0400, L500.4050, L3400.4700, L500.4100 #### [facility] [address] [place], [address] Absolute Neut 4.8 X10 3/uL Normal 2.0-7.7 [facility] Comment on above: Performed By: #### L 501.9520, L100.0100, L506.1001, L506.0400, L500.4050, L3400.4700, L500.4100 #### [facility] [address] [place], [address] Basophils/100 WBC (Bld) 0.8 % Normal 0-1 [facility] Comment on above: Performed By: #### L 501.9520, L100.0100, L506.1001, L506.0400, L500.4050, L3400.4700, L500.4100 #### [facility] [address] [place], [address] Eosinophils/100 WBC (Bld) 3.1 % Normal 0-5 [facility] Comment on above: Performed By: #### L 501.9520, L100.0100, L506.1001, L506.0400, L500.4050, L3400.4700, L500.4100 #### [facility] [address] [place], [address] Erythrocyte distribution width (RBC) [Ratio] 12.6 % Normal 11.6-14.6 [facility] Comment on above: Performed By: #### L 501.9520, L100.0100, L506.1001, L506.0400, L500.4050, L3400.4700, L500.4100 #### [facility] [address] [place], [address] Hematocrit (Bld) [Volume fraction] 41.0 % Normal 37-47 [facility] Comment on above: Performed By: #### L 501.9520, L100.0100, L506.1001, L506.0400, L500.4050, L3400.4700, L500.4100 #### [facility] [address] [place], [address] Hemoglobin (Bld) [Mass/Vol] 14.1 g/dL Normal 12.0-15.0 [facility] Comment on above: Performed By: #### L 501.9520, L100.0100, L506.1001, L506.0400, L500.4050, L3400.4700, L500.4100 #### [facility] [address] [place], [address] IG% 0.300 Normal 0.0-0.9 [facility] Comment on above: Result Comment: IG% - Immature Granulocytes (promyelocytes, myelocytes and metamyelocytes) > 1% indicates that a LEFT SHIFT is Present. Performed By: #### L 501.9520, L100.0100, L506.1001, L506.0400, L500.4050, L3400.4700, L500.4100 #### [facility] [address] [place], [address] Lymphocytes/100 WBC (Bld) 22.7 % Normal 19-41 [facility] Comment on above: Performed By: #### L 501.9520, L100.0100, L506.1001, L506.0400, L500.4050, L3400.4700, L500.4100 #### [facility] [address] [place], [address] MCH (RBC) [Entitic mass] 33.1 pg High 27.0-32.0 [facility] Comment on above: Performed By: #### L 501.9520, L100.0100, L506.1001, L506.0400, L500.4050, L3400.4700, L500.4100 #### [facility] [address] [place], [address] MCHC (RBC) [Mass/Vol] 34.4 g/dL Normal 32-36 [facility] Comment on above: Performed By: #### L 501.9520, L100.0100, L506.1001, L506.0400, L500.4050, L3400.4700, L500.4100 #### [facility] [address] [place], [address] MCV (RBC) [Entitic vol] 96.2 fL Normal 81-99 [facility] Comment on above: Performed By: #### L 501.9520, L100.0100, L506.1001, L506.0400, L500.4050, L3400.4700, L500.4100 #### [facility] [address] [place], [address] Monocytes/100 WBC (Bld) 8.1 % Normal 0-10 [facility] Comment on above: Performed By: #### L 501.9520, L100.0100, L506.1001, L506.0400, L500.4050, L3400.4700, L500.4100 #### [facility] [address] [place], [address] Neutrophils/100 WBC (Bld) 65.0 % Normal 47-70 [facility] Comment on above: Performed By: #### L 501.9520, L100.0100, L506.1001, L506.0400, L500.4050, L3400.4700, L500.4100 #### [facility] [address] [place], [address] Nucleated RBC (Bld) [#/Vol] 0 10*3/uL Normal 0-5 [facility] Comment on above: Performed By: #### L 501.9520, L100.0100, L506.1001, L506.0400, L500.4050, L3400.4700, L500.4100 #### [facility] [address] [place], [address] Platelet mean volume (Bld) [Entitic vol] 9.3 fL Normal 6.2-12.0 [facility] Comment on above: Performed By: #### L 501.9520, L100.0100, L506.1001, L506.0400, L500.4050, L3400.4700, L500.4100 #### [facility] [address] [place], [address] Platelets (Bld) [#/Vol] 306 10*3/uL Normal 150-450 [facility] Comment on above: Performed By: #### L 501.9520, L100.0100, L506.1001, L506.0400, L500.4050, L3400.4700, L500.4100 #### [facility] [address] [place], [address] RBC (Bld) [#/Vol] 4.26 10*6/uL Normal 4.2-5.4 [facility] Comment on above: Performed By: #### L 501.9520, L100.0100, L506.1001, L506.0400, L500.4050, L3400.4700, L500.4100 #### [facility] [address] [place], [address] RDW SD 44.4 fl High 35.1-43.9 [facility] Comment on above: Performed By: #### L 501.9520, L100.0100, L506.1001, L506.0400, L500.4050, L3400.4700, L500.4100 #### [facility] [address] [place], [address] WBC (Bld) [#/Vol] 7.4 10*3/uL Normal 4.4-11.0 [facility] Comment on above: Performed By: #### L 501.9520, L100.0100, L506.1001, L506.0400, L500.4050, L3400.4700, L500.4100 #### [facility] [address] [place], [address] Calculated very low density lipoprotein (VLDL) cholesterol measurementOrdered By: Armen Durbin on 01-31-2025 Calculated very low density lipoprotein (VLDL) cholesterol measurement 21 mg/dL 5-40 [facility] Carbon dioxide, total [Moles /volume] in Central venous bloodOrdered By: Armen Durbin on 01-31-2025 CO2 [Moles/Vol] 24.8 mmol/L 21.0-32.0 [facility] Chloride assayOrdered By: Alana Durbin on 01-31-2025 Chloride [Moles/Vol] 103 mmol/L 98-108 [facility] Comprehensive Metabolic Prof ilon 01-31-2025 Albumin [Mass/Vol] 4.3 g/dL Normal 3.4-4.8 [facility] Comment on above: Performed By: #### L 501.9520, L100.0100, L506.1001, L506.0400, L500.4050, L3400.4700, L500.4100 #### [facility] [address] [place], [address] Albumin/Globulin [Mass ratio] 1.4 {ratio} Normal 0.9-2.4 [facility] Comment on above: Performed By: #### L 501.9520, L100.0100, L506.1001, L506.0400, L500.4050, L3400.4700, L500.4100 #### [facility] [address] [place], [address] ALK PHOS 94 U/L Normal 35-104 [facility] Comment on above: Performed By: #### L 501.9520, L100.0100, L506.1001, L506.0400, L500.4050, L3400.4700, L500.4100 #### [facility] [address] [place], [place], [id number] ALT [Catalytic activity/Vol] 16 U/L Normal <=34 [facility] Comment on above: Performed By: #### L 501.9520, L100.0100, L506.1001, L506.0400, L500.4050, L3400.4700, L500.4100 #### [facility] [address] [place], [place], [id number] AST [Catalytic activity/Vol] 26 U/L Normal <=31 [facility] Comment on above: Performed By: #### L 501.9520, L100.0100, L506.1001, L506.0400, L500.4050, L3400.4700, L500.4100 #### [facility] [address] [place], [place], [phone] Bilirubin [Mass/Vol] 0.80 mg/dL Normal 0.00-1.30 [facility] Comment on above: Performed By: #### L 501.9520, L100.0100, L506.1001, L506.0400, L500.4050, L3400.4700, L500.4100 #### [facility] [address] [place], [place], [phone] [phone] BUN/CRE 16.6 RATIO Normal 10-20 [facility] Comment on above: Performed By: #### L 501.9520, L100.0100, L506.1001, L506.0400, L500.4050, L3400.4700, L500.4100 #### [facility] [address] [place], [address] Calcium [Mass/Vol] 10.0 mg/dL Normal 7.6-11.0 [facility] Comment on above: Performed By: #### L 501.9520, L100.0100, L506.1001, L506.0400, L500.4050, L3400.4700, L500.4100 #### [facility] [address] [place], [address] Chloride [Moles/Vol] 103 mmol/L Normal 98-108 [facility] Comment on above: Performed By: #### L 501.9520, L100.0100, L506.1001, L506.0400, L500.4050, L3400.4700, L500.4100 #### [facility] [address] [place], [address] CO2 [Moles/Vol] 24.8 mmol/L Normal 21.0-32.0 [facility] Comment on above: Performed By: #### L 501.9520, L100.0100, L506.1001, L506.0400, L500.4050, L3400.4700, L500.4100 #### [facility] [address] [place], [address] Creatinine [Mass/Vol] 0.90 mg/dL Normal 0.70-1.20 [facility] Comment on above: Performed By: #### L 501.9520, L100.0100, L506.1001, L506.0400, L500.4050, L3400.4700, L500.4100 #### [facility] [address] [place], [address] GAP 13 Normal 5-15 [facility] Comment on above: Performed By: #### L 501.9520, L100.0100, L506.1001, L506.0400, L500.4050, L3400.4700, L500.4100 #### [facility] [address] [place], [address] GFR/1.73 sq M.predicted among non-blacks MDRD (S/P/Bld) [Vol rate/Area] 66 mL/min/{1.73_m2} Normal >60 [facility] Comment on above: Result Comment: mL/m in/1.73m2 CKD-EPI Creatinine Equation (2020) Performed By: #### L 501.9520, L100.0100, L506.1001, L506.0400, L500.4050, L3400.4700, L500.4100 #### [facility] [address] [place], [address] Globulin (S) [Mass/Vol] 3.0 g/dL Normal 2.2-4.2 [facility] Comment on above: Performed By: #### L 501.9520, L100.0100, L506.1001, L506.0400, L500.4050, L3400.4700, L500.4100 #### [facility] [address] [place], [address] Glucose [Mass/Vol] 97 mg/dL Normal 70-99 [facility] Comment on above: Performed By: #### L 501.9520, L100.0100, L506.1001, L506.0400, L500.4050, L3400.4700, L500.4100 #### [facility] [address] [place], [address] Potassium [Moles/Vol] 3.9 mmol/L Normal 3.3-5.1 [facility] Comment on above: Performed By: #### L 501.9520, L100.0100, L506.1001, L506.0400, L500.4050, L3400.4700, L500.4100 #### [facility] [address] [place], [place], [phone] Sodium [Moles/Vol] 140 mmol/L Normal 133-145 [facility] Comment on above: Performed By: #### L 501.9520, L100.0100, L506.1001, L506.0400, L500.4050, L3400.4700, L500.4100 #### [facility] [address] [place], [address] T PROT 7.4 g/dL Normal 5.9-8.4 [facility] Comment on above: Performed By: #### L 501.9520, L100.0100, L506.1001, L506.0400, L500.4050, L3400.4700, L500.4100 #### [facility] [address] [place], [place], [phone] Urea nitrogen [Mass/Vol] 15 mg/dL Normal 4-19 [facility] Comment on above: Performed By: #### L 501.9520, L100.0100, L506.1001, L506.0400, L500.4050, L3400.4700, L500.4100 #### [facility] [address] [place], [place], [id number] Eosinophil percentageOrdered By: Armen Durbin on 01-31-2025 Eosinophils/100 WBC (Bld) 3.1 % 0-5 [facility] Erythrocyte distribution wid th ratioOrdered By: Armen Durbin on 01-31-2025 Erythrocyte distribution width (RBC) [Ratio] 12.6 % 11.6-14.6 [facility] Erythrocyte distribution wid th standard deviationOrdered By: Armen Durbin on 01-31-2025 Erythrocyte distribution width (RBC) [Ratio] 44.4 fl High 35.1-43.9 [facility] Glomerular filtration rate ( GFR) estimation/1.73 sq m using serum, plasma, or whole bOrdered By: Armen Durbin on 01-31-2025 GFR/1.73 sq M.predicted among non-blacks MDRD (S/P/Bld) [Vol rate/Area] 66 mL/min/{1.73_m2} >60 [facility] Comment on above: mL/min/1.73m2 CKD-EP I Creatinine Equation (2020) Hematocrit Auto (Bld) [Volum e fraction]Ordered By: Armen Durbin on 01-31-2025 Hematocrit (Bld) [Volume fraction] 41.0 % 37-47 [facility] Hemoglobin measurementOrdere d By: Armen Durbin on 01-31-2025 Hemoglobin (Bld) [Mass/Vol] 14.1 g/dL 12.0-15.0 [facility] Immature granulocytes/100 WB C Auto (Bld)Ordered By: Armen Durbin on 01-31-2025 Immature granulocytes/100 WBC (Bld) 0.300 % 0.0-0.9 [facility] Comment on above: IG% - Immature Granu locytes (promyelocytes, myelocytes and metamyelocytes) > 1% indicates that a LEFT SHIFT is Present. LDL calc ser/plasOrdered By: Armen Durbin on 01-31-2025 Cholesterol in LDL [Mass/Vol] 62 mg/dL [facility] Comment on above: Nxqeklozij=940-717 m g/dL & Higher Zyji=562 mg/dL or greaterFriedwald Equation for LDL-C Laboratory - Chemistry and C hemistry - challengeOrdered By: Armen Durbin on 01-31-2025 AST [Catalytic activity/Vol] 26 U/L <32 [facility] Lipid Profileon 01-31-2025 CHOL:HDL 2.34 Normal [facility] Comment on above: Performed By: #### L 501.9520, L100.0100, L506.1001, L506.0400, L500.4050, L3400.4700, L500.4100 #### [facility] [address] [place], [address] Cholesterol [Mass/Vol] 145 mg/dL Normal <=200 [facility] Comment on above: Result Comment: Chol esterol level, Desirable <200 mg/dL Borderline high cholesterol 200-239 mg/dL High cholesterol >=240 mg/dL Recommendations of the NCEP Adult Treatment Panel for the following risk-cutoff thresholds for the [place] population. Performed By: #### L 501.9520, L100.0100, L506.1001, L506.0400, L500.4050, L3400.4700, L500.4100 #### [facility] [address] [place], [address] Cholesterol in HDL [Mass/Vol] 62 mg/dL Normal [facility] Comment on above: Result Comment: Marilyn onal Cholesterol Education Program (NCEP) guidelines: <40 mg/dL: Low HDL-cholesterol (major risk factor for CHD) >= 60 mg/dL: High HDL-cholesterol (negative risk factor for CHD) HDL-cholesterol is affected by a number of factors, e.g. smoking, exercise, hormones, sex and age. Performed By: #### L 501.9520, L100.0100, L506.1001, L506.0400, L500.4050, L3400.4700, L500.4100 #### [facility] [address] [place], [address] Cholesterol in LDL [Mass/Vol] 62 mg/dL Normal [facility] Comment on above: Result Comment: Bord nyxnwi=581-779 mg/dL Higher Yrft=200 mg/dL or greater Friedwald Equation for LDL-C Performed By: #### L 501.9520, L100.0100, L506.1001, L506.0400, L500.4050, L3400.4700, L500.4100 #### [facility] [address] [place], [address] Cholesterol in VLDL [Mass/Vol] 21 mg/dL Normal 5-40 [facility] Comment on above: Performed By: #### L 501.9520, L100.0100, L506.1001, L506.0400, L500.4050, L3400.4700, L500.4100 #### [facility] [address] [place], [address] Triglyceride [Mass/Vol] 107 mg/dL Normal [facility] Comment on above: Result Comment: The drugs N-Acetylcysteine and Metamizole may falsely depress this assay. Normal range: <150 mg/dL Borderline High: 150-199 mg/dL High: 200-499 mg/dL Very High: >500 mg/dL Performed By: #### L 501.9520, L100.0100, L506.1001, L506.0400, L500.4050, L3400.4700, L500.4100 #### [facility] [address] [place], [address] MCV (mean corpuscular volume ) determinationOrdered By: Armen Durbin on 01-31-2025 MCV (RBC) [Entitic vol] 96.2 fL 81-99 [facility] Mean corpuscular hemoglobin (MCH) determinationOrdered By: Armen Durbin on 01-31-2025 MCH (RBC) [Entitic mass] 33.1 pg High 27.0-32.0 [facility] Mean corpuscular hemoglobin concentration (MCHC) determinationOrdered By: Armen Durbin on 01-31-2025 MCHC (RBC) [Mass/Vol] 34.4 g/dL 32-36 [facility] Mean platelet volume determi nationOrdered By: Armen Durbin on 01-31-2025 Platelet mean volume (Bld) [Entitic vol] 9.3 fL 6.2-12.0 [facility] Monocyte percentageOrdered B y: Armen Durbin on 01-31-2025 Monocytes/100 WBC (Bld) 8.1 % 0-10 [facility] Neutrophil percentageOrdered By: Armen Durbin on 01-31-2025 Neutrophils/100 WBC (Bld) 65.0 % 47-70 [facility] Nucleated red blood cell per centageOrdered By: Armen Durbin on 01-31-2025 Nucleated RBC/100 WBC (Bld) [Ratio] 0 % 0-5 [facility] Platelet countOrdered By: Alana Durbin on 01-31-2025 Platelets (Bld) [#/Vol] 306 10*3/uL 150-450 [facility] Potassium measurement (mass/ volume)Ordered By: Armen Durbin on 01-31-2025 Potassium (Unsp spec) [Mass/Vol] 3.9 mmol/L 3.3-5.1 [facility] RBC Auto (Bld) [#/Vol]Ordere d By: Armen Durbin on 01-31-2025 RBC (Bld) [#/Vol] 4.26 10*6/uL 4.2-5.4 [facility] Screening total cholesterol/ high density lipoprotein (HDL) cholesterol ratioOrdered By: Armen Durbin on 01-31-2025 Cholesterol.total/Choles terol in HDL [Mass ratio] 2.34 {ratio} [facility] Serum creatinine measurement (mass/volume)Ordered By: Armen Durbin on 01-31-2025 Creatinine [Mass/Vol] 0.90 mg/dL 0.70-1.20 [facility] Serum globulin measurementOr dered By: Armen Durbin on 01-31-2025 Globulin (S) [Mass/Vol] 3.0 g/dL 2.2-4.2 [facility] Serum glucose measurement (m ass/volume)Ordered By: Armen Durbin on 01-31-2025 Glucose [Mass/Vol] 97 mg/dL 70-99 [facility] Serum or plasma alanine bond otransferase (ALT) measurementOrdered By: Armen Durbin on 01-31-2025 ALT [Catalytic activity/Vol] 16 U/L <35 [facility] Serum or plasma albumin marisol urement (mass/volume)Ordered By: Armen Durbin on 01-31-2025 Albumin [Mass/Vol] 4.3 g/dL 3.4-4.8 [facility] Serum or plasma albumin/glob ulin mass ratioOrdered By: Armen Durbin on 01-31-2025 Albumin/Globulin [Mass ratio] 1.4 {ratio} 0.9-2.4 [facility] Serum or plasma alkaline jd sphatase measurementOrdered By: Armen Durbin on 01-31-2025 ALP [Catalytic activity/Vol] 94 U/L 35-104 [facility] Serum or plasma calcium marisol urement (mass/volume)Ordered By: Armen Durbin on 01-31-2025 Calcium [Mass/Vol] 10.0 mg/dL 7.6-11.0 [facility] Serum or plasma cholesterol in HDL measurement (mass/volume)Ordered By: Armen Durbin on 01-31-2025 Cholesterol in HDL [Mass/Vol] 62 mg/dL >40 [facility] Comment on above: National Cholesterol Education Program (NCEP) guidelines:<40 mg/dL: Low HDL-cholesterol (major risk factor for CHD)>= 60 mg/dL: High HDL-cholesterol (negative risk factor for CHD)HDL-cholesterol is affected by a number of factors, e.g. smoking, exercise, hormones, sex and age. Serum or plasma cholesterol measurement (mass/volume)Ordered By: Armen Durbin on 01-31-2025 Cholesterol [Mass/Vol] 145 mg/dL <201 [facility] Comment on above: Cholesterol level, D esirable <200 mg/dLBorderline high cholesterol 200-239 mg/dLHigh cholesterol >=240 mg/dLRecommendations of the NCEP Adult Treatment Panel for the following risk-cutoff thresholds for the [place] population. Serum or plasma urea nitroge n measurement (mass/volume)Ordered By: Armen Durbin on 01-31-2025 Urea nitrogen [Mass/Vol] 15 mg/dL 4-19 [facility] Sodium levelOrdered By: Ludin Durbin on 01-31-2025 Sodium [Moles/Vol] 140 mmol/L 133-145 [facility] T4 Free Directon 01-31-2025 T4 FREE DIRECT 1.70 ng/dL High 0.76-1.46 [facility] Comment on above: Performed By: #### L 501.9520, L100.0100, L506.1001, L506.0400, L500.4050, L3400.4700, L500.4100 ####[facility] [id number] [place], [place], [id number] T4 freeOrdered By: Armen byrd on 01-31-2025 Free T4 [Mass/Vol] 1.70 ng/dL High 0.76-1.46 [facility] TSH DL <= 0.005 mIU/L QnOrde red By: Armen Durbin on 01-31-2025 TSH Qn 0.104 uIU/mL Low 0.300-4.200 [facility] Thyroid Stim Hormone (TSH)on 01-31-2025 TSH 0.104 uIU/mL Low 0.300-4.200 [facility] Comment on above: Performed By: #### L 501.9520, L100.0100, L506.1001, L506.0400, L500.4050, L3400.4700, L500.4100 #### [facility] [address] [place], [address] Thyroid stimulating immunogl obulins detectionOrdered By: Armen Durbin on 01-31-2025 Thyroid stimulating immunoglobulins Ql (S) 2.84 IU/L High 0.00-0.55 [facility] Comment on above: Performed at: [address] [id number] Director: Noemi Han MD, Phone: [phone] Total proteinOrdered By: Denise Durbin on 01-31-2025 Protein [Mass/Vol] 7.4 g/dL 5.9-8.4 [facility] Triglycerides measurementOrd ered By: Armen Durbin on 01-31-2025 Triglyceride [Mass/Vol] 107 mg/dL <199 [facility] Comment on above: The drugs N-Acetylcy steine and Metamizole may falsely depress this assay. Normal range: <150 mg/dLBorderline High: 150-199 mg/dLHigh: 200-499 mg/dLVery High: >500 mg/dL Vitamin D,25 Hydroxyon 01-31 Vitamin D 25-OH 44.7 ng/mL Normal 30-100 [facility] Comment on above: Result Comment: Victoria min D Status Deficiency: <20 ng/mL (50nmol/L) Insufficiency: 20-30 ng/mL (50-75 nmol/L) Sufficiency: 30-100 ng/mL (75-250 nmol/L) Toxicity: >100 ng/mL (>250 nmol/L) Performed By: #### L 501.9520, L100.0100, L506.1001, L506.0400, L500.4050, L3400.4700, L500.4100 ####[facility] [id number] [place], [address] White blood cell (WBC) count Ordered By: Armen Durbin on 01-31-2025 WBC (Bld) [#/Vol] 7.4 10*3/uL 4.4-11.0 [facility] Chest without Contraston Chest without Contrast [facility] [address] [facility] [place] [address] Chest without Contrast MR#: [id number] Acct: [id number] Name: GRIS CURRY Rep #: [id number] : 1945 F 80 From: Justino Dela Cruz MD PCP: Dr. Armen Durbin MD Status: REG CLI Study: Chest without Contrast Date of Exam: 01/28/25 Exam# [id number] Ordering Dr: Emily Kinsey [employer]LE[employer]CH[employer]IC-C PROCEDURE: CHEST WITHOUT CONTRAST 01/28/2025 REASON FOR EXAM: ABNORMAL CHEST CT AND HIGH RISK PATIENT TECHNIQUE: Chest CT without contrast. Coronal and Sagittal reconstruction series were provided. One or more dose reduction techniques were used (e.g., Automated exposure control, adjustment of the mA and/or kV according to patient size, use of iterative reconstruction technique RADIATION DOSE SUMMARY: CTDlvol: 5.16 mGy DLP: 175.68 mGycm COMPARISON: 10/21/2024 FINDINGS: Lung windows again show underlying emphysema with a stable area of opacification in the lingula. Since it has not improved since the previous study, a sinister process can not be excluded and a PET/CT scan or biopsy is recommended for further evaluation. No organized infiltrate or effusion, no new suspicious noncalcified mass or nodule Soft tissue windows show a normal-appearing thyroid gland. No suspicious adenopathy. Peripheral calcifications in the thoracic aorta with aneurysmal dilatation of the ascending thoracic aorta at 4.6 cm. There are coronary artery calcifications. Limited cuts through the upper abdomen do not show any suspicious abnormality. Bony structures show degenerative change CT/Chest without Contrast IMPRESSION: Coronary artery calcification (CAC) is is present Severe underlying emphysema with stable lingular opacification which has not improved or resolved since the previous study it actually has become larger now measuring 1.5 by 1.2 cm where on the previous study it measured 1.1 x 0.6 cm. Recommend further evaluation with PET/CT scan or biopsy No organized infiltrate or effusion Stable aneurysmal dilatation of the ascending thoracic aorta at 4.6 cm. Reading Location: [place] [address] CC: LONNIE Kinsey; Dr. Armen Durbin MD Identification Printing Machine Setter: Signed Normal [facility] Pulmonary Visit Reporton Pulmonary Visit Report [facility] of [address] [place] [address] OFFICE VISIT Date of Service: 10/25/24 MR#: [id number] Acct: [id number] Name: GRIS CURRY Rep #: [id number] : 1945 Provider: LONNIE Kinsey Age/Sex: 79/F Location: [facility] Status: Signed Assessment and Plan Assessment and Plan (1) Abnormal chest CT: Status: Acute Plan: Newly identified. The findings on CT exam are somewhat vague and given her high risk for cancer recurrence from smoking history and family history, we we will proceed by monitoring this with a diagnostic CT of the chest in 3 months. Return to the office once test results are available for review. She has been encouraged to contact our office if she notices any new or worsening symptoms in the meantime. (2) COPD (chronic obstructive pulmonary disease): Status: Chronic Qualifiers: COPD type: emphysema Emphysema type: centrilobular Qualified Code(s): J43.2 - Centrilobular emphysema Comment: FEV1 57% Plan: She does not appear to be an exacerbation of COPD today. No need for prednisone or antibiotic. Continue current maintenance medication, she is symptomatically controlled with the use of triple therapy on Trelegy. No additional testing at this time. Contact the office for any new or worsening symptoms. An acute visit and typically be arranged within 1-2 days. Follow-up in 3 months. (3) Chronic hypoxic respiratory failure: Status: Chronic Plan: She is using and benefiting from supplemental oxygen. She has been encouraged to continue to use supplemental oxygen with sleep. She is also asked to monitor saturations and maintain a sat of 89 to 92%, titrating supplemental oxygen as needed. 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 Blood level within normal limits at 150. Orders: Orders Chest without Contrast 3 Months R93.89 - Abnormal findings on diagnostic imaging of other specified body structures Plan Details Additional Comments: This note was generated with [employer] dictation software. It may contain incorrect words, spelling, and punctuation that were not noted in checking the note before signing. Follow Up: 3 Months HPI 1 M FU Chief Complaint: Test results HPI Comments Details: This patient presents to the office today to discuss test results. She is ambulatory. She has not recently been seen in the ED or urgent care for any respiratory illness. She has not required any antibiotics or prednisone for any breathing problems. She is compliant with use Trelegy 1 puff daily. She does report rinsing her mouth out after each use. She denies any medication side effect such as sore throat or thrush. She has not recently needed her albuterol rescue inhaler. She was set up with albuterol to be nebulized. She states that she needs clarification on when that should be used. She also has supplemental oxygen now. She is wondering if she should be using it when she uses her stationary bike. She continues complete smoking cessation. If you recall, she was a 1/2 pack/day smoker quitting completely back in 2022. She is using 2 LPM continuous flow oxygen with sleep. She uses with oxygen at 2 LPM while exercising and on exertion. She has noticed a reduction on exertional dyspnea since using oxygen as prescribed. Test results personally viewed the patient: Low-dose CT lung screening completed on October 21, 2024. Left upper lobe airspace disease favoring postinflammatory scarring. More acute process not excluded. 3-month follow-up is recommended. Alpha-1 antitrypsin level 150, normal. Intake Vital Signs 09/23/24 07:58 10/25/24 08:24 10/25/24 10:19 Height 5 ft 4 in 5 ft 4 in 5 ft 4 in Weight: 122 lb BMI 20.9 BP 145/84 H 152/76 H Blood Pressure Location Rt brachial Rt brachial Position Sitting Sitting Respiration 16 18 Pulse 65 73 Pulse Source NIBP Temp 97.5 F L 98.0 F Temperature Source Temporal Artery Oral Pulse Oximetry (%) 97 95 Oxygen Delivery Method room air room air Intake Visit Reasons: 1 M FU Chief Complaint: 1 month follow up Is patient in pain?: No Allergies hydrocodone Allergy (Verified 10/25/24 10:20) Itching fentanyl Adverse Reaction (Verified 10/25/24 10:20) SENSITIVE hydrochlorothiazide Adverse Reaction (Verified 10/25/24 10:20) SUN SENSITIVITY Medications ???Medication ???Instructions ???Recorded ???Confirmed ???Type aspirin 81 mg tablet,delayed 81 mg PO DAILY 06/19/23 10/25/24 H istory release (Adult Aspirin Regimen) cholecalciferol (vitamin D3) 25 25 mcg PO DAILY 06/19/23 10/25/24 History mcg (1,000 unit) capsule (Vitamin D3) omega 3-cvt-tle-fish oil 300 1 cap PO DAILY 06/19/23 10/25/24 H isto (more content not included)... Normal [facility] Low Dose CT Lung Screeningon 10-21-[address] Lung Screening [facility] Services [address] [place] [address] Lung Screening MR#: [id number] Acct: [id number] Name: GRIS CURRY Rep #: [id number] : 1945 F 79 From: Kris Fraire MD PCP: Dr. Armen Durbin MD Status: [facility] Study: Low Dose CT Lung Screening Date of Exam: 10/21 Exam# [id number] Ordering Dr: Emily Kinsey DIESEL FLEET MECHANIC DIESEL FLEET MECHANIC-C PROCEDURE: LOW DOSE CT LUNG SCREENING 10/21/2024 REASON FOR EXAM: SMOKING 2021 TECHNIQUE: LOW DOSE CT LUNG SCREENING Coronal and Sagittal reconstruction series were provided. One or more dose reduction techniques were used (e.g., Automated exposure control, adjustment of the mA and/or kV according to patient size, use of iterative reconstruction technique). REFERENCE LINK: W4 Lung-RADS RADIATION DOSE SUMMARY: CTDlvol: 2 mGy DLP: 68 mGycm COMPARISON: No FINDINGS: Central airways are patent. Moderately severe emphysema. On the left, there is upper lobe densities favoring scar/atelectasis, more acute airspace process, such as infection not completely excluded. Intrapulmonary lymph node. Series 601, image 185, 3 mm noncalcified upper lobe nodule. Series 602, image 95, 4 mm noncalcified lower lobe nodule. On the right, dependent atelectasis. Series 2, image 167, 4 mm noncalcified lower lobe nodule. Surgical clips left axilla. Unremarkable base of neck and right axilla. Thoracic spine degeneration. Normal esophagus. Normal heart size. Dilated ascending aorta, 4.4 cm cross-section. No acute vascular pathology on noncontrast scanning. Status post left breast lumpectomy. Old T8 wedge fracture. No acute chest wall findings. No acute upper abdominal findings. CT/Low Dose CT Lung Screening IMPRESSION: Bilateral noncalcified lung nodules measuring up to 4 mm. Lung-RADS Category: 2 Other Significant Findings: Left upper lobe airspace disease favoring postinflammatory scarring. More acute process not excluded. Three-month follow up imaging to further characterize, is recommended. Reading Location: [place] [address] CC: LONNIE Kinsey; Dr. Armen Durbin MD Identification Printing Machine Setter: Signed Normal [facility] Alpha Antitrypsin Serumon ALPHA1 ANTITRYP 150 mg/dL Normal 101-187 [facility] Comment on above: Result Comment: Perf ormed at: CB - [facility] [address] [id number] Learning Support Assistant: Salazar Pettit PhD, Phone: [phone] Performed By: #### L 8501.2100 #### [facility] Laboratory [address] [place] [address]. [place], [address] Pulmonary Visit Reporton Pulmonary Visit Report [facility] [address] [place], [place] [id number] OFFICE VISIT Date of Service: 09/23/24 MR#: [id number] Acct: [id number] Name: GRIS CURRY Rep #: [id number] : 1945 Provider: LONNIE Kinsey Age/Sex: 79/F Location: [facility] Status: Signed Assessment and Plan Assessment and Plan (1) COPD (chronic obstructive pulmonary disease): Status: Chronic Qualifiers: COPD type: emphysema Emphysema type: centrilobular Qualified Code(s): J43.2 - Centrilobular emphysema Comment: FEV1 57% Plan: She does not appear to be an exacerbation of COPD today. No need for prednisone or antibiotic. Continue current maintenance medication, she is symptomatically controlled with the use of triple therapy on Trelegy. No additional testing at this time. Contact the office for any new or worsening symptoms. An acute visit and typically be arranged within 1-2 days. Follow-up in 1 month. (2) Chronic hypoxic respiratory failure: Status: Chronic Plan: Newly clarified. The patient was instructed that she should be utilizing 2 L/min of supplemental oxygen with any exertion. She conveys understanding. Ordering a nocturnal oximetry to make sure that the patient is not hypoxic with sleep. (3) Smoking greater than 20 pack years: Status: Chronic Comment: Quit 2021 Plan: She is appropriate for LDCT, ordered accordingly. Follow-up in 1 month to discuss test results. Continue to encourage ongoing smoking cessation. (4) Fpwcn-9-[id number] deficiency: Status: Acute Plan: Self-reported. Ordering a serum level for confirmation. Orders: Orders Low Dose CT Lung Screening Today F17.200 - Nicotine dependence, unspecified, uncomplicated, F17.210 - Nicotine dependence, cigarettes, uncomplicated Alpha Antitrypsin Serum Today E88.01 - Ievmq-0-rgdewghpvce deficiency Plan Details Additional Comments: This note was generated with [employer] dictation software. It may contain incorrect words, spelling, and punctuation that were not noted in checking the note before signing. Follow Up: 1 Month ([facility]) HPI 6 M FU Chief Complaint: Test results HPI Comments Details: This patient presents to the office today to discuss test results. She is ambulatory. She has not recently been seen in the ED or urgent care for any respiratory illness. She has not required any antibiotics or prednisone for any breathing problems. She is compliant with use Trelegy 1 puff daily. She does report rinsing her mouth out after each use. She denies any medication side effect such as sore throat or thrush. She has not recently needed her albuterol rescue inhaler. She was set up with albuterol to be nebulized. She states that she needs clarification on when that should be used. She also has supplemental oxygen now. She is wondering if she should be using it when she uses her stationary bike. She continues complete smoking cessation. If you recall, she was a 1/2 pack/day smoker quitting completely back in 2022. She admits that if she did not have lung problems she would continue smoking. She reports that she has alpha 1 antitrypsin deficiency. She believes that her testing showed M/S. She is not sure of a serum blood level. Test results personally viewed the patient: Walking oximetry completed on August 10, 2024. The patient did desaturate during the second minute of ambulation. She was able to ambulate a total of 1011 feet over the course of 6 minutes. It is recommended that she utilize 2 L/min of supplemental oxygen on exertion. Pulmonary function test completed on August 12, 2024. Impression is partially reversible moderately severe large airway obstructive dilatory defect with symmetric reduction diffusing capacity. FEV1 57% of predicted. Intake Vital Signs 03/23/24 08:59 09/23/24 07:58 Height 5 ft 4 in 5 ft 4 in Weight: 122 lb BMI 20.9 BP 145/84 H Blood Pressure Location Rt brachial Position Sitting Respiration 16 Pulse 65 Pulse Source NIBP Temp 97.5 F L Temperature Source Temporal Artery Pulse Oximetry (%) 97 Oxygen Delivery Method room air Intake Visit Reasons: 6 M FU Allergies hydrocodone Allergy (Verified 08/17/24 10:37) Itching fentanyl Adverse Reaction (Verified 08/17/24 10:37) SENSITIVE hydrochlorothiazide Adverse Reaction (Verified 08/17/24 10:37) SUN SENSITIVITY Medications ???Medication ???Instructions ???Recorded ???Confirmed ???Type aspirin 81 mg tablet,delayed 81 mg PO DAILY 06/19/23 09/23/24 H istory release (Adult Aspirin Regimen) cholecalciferol (vitamin D3) 25 25 mcg PO DAILY 06/19/23 09/23/24 History mcg (1,000 unit) capsule (Vitamin D3) omega 8-vsw-adr-fish oil 300 1 cap PO DAILY 06/19/23 09/23/24 H istory mg-1,000 mg capsule (Fish Oil) (more content not included)... Normal [facility] Serum wofbx-3-vgesptrfaek me asurementOrdered By: Emily Kinsey on 09-23-2024 Alpha 1 antitrypsin [Mass/Vol] 150 mg/dL 101-187 [facility] Comment on above: Performed at: [address] [id number] Director: Salazar Pettit PhD, Phone: [phone] Cardiology Visit Reporton Cardiology Visit Report [facility] [address] [place] [address] OFFICE VISIT Date of Service: 08/17/24 MR#: [id number] Acct: [id number] Name: GRIS CURRY ELMO Rep #: [id number] : 1945 Provider: Dr. Pawan Beal MD Age/Sex: 79/F Location: [facility] Status: Signed HPI HPI History of Present Illness Details: Pleasant 79-year-old lady with a previous cardiac history significant for hypertension aortic sclerosis, ascending dilated aortic root and abdominal aortic aneurysm. She recently moved here from [place]. She denies any chest pain or shortness of breath or paroxysmal nocturnal dyspnea or pedal edema she has had no neck out arm or jaw discomfort suggest angina. She does have obstructive lung disease and was found to have alpha-1 antitrypsin deficiency. She has been compliant with all her medications and tells me that she is scheduled to have an echocardiogram performed. Her last echocardiogram was in 2019 and demonstrated an ejection fraction of 60% and a dilated aortic root measuring 3.9 cm. She had a stress echocardiogram in 2020 which was noted to be unremarkable. And a normal echocardiogram in January 2024 demonstrating ejection fraction of 55% with a moderately dilated aortic root measuring 4.5 cm. Her aortic ultrasound demonstrated an ectatic aorta but no aneurysm noted. She has been doing well she complains of being tired easily but her blood pressures at home have been normal. She has had no chest pain or shortness breath or paroxysmal nocturnal dyspnea to suggest angina. Intake Vital Signs 07/02/23 10:47 08/10/24 11:35 08/17/24 10:26 Height 5 ft 4 in 5 ft 4 in 5 ft 4 in Weight: 124 lb BMI 21.2 BP 131/74 H Blood Pressure Location Lt brachial Position Sitting Respiration 16 Pulse 62 Pulse Source Monitor Intake Visit Reasons: 1 y fu Swimming Coach Required: No Accompanied by: Daughter Is patient in pain?: No Allergies hydrocodone Allergy (Verified 08/17/24 10:37) Itching fentanyl Adverse Reaction (Verified 08/17/24 10:37) SENSITIVE hydrochlorothiazide Adverse Reaction (Verified 08/17/24 10:37) SUN SENSITIVITY Medications ???Medication ???Instructions ???Recorded ???Confirmed ???Type aspirin 81 mg tablet,delayed 81 mg PO DAILY 06/19/23 08/17/24 H istory release (Adult Aspirin Regimen) cholecalciferol (vitamin D3) 25 25 mcg PO DAILY 06/19/23 08/17/24 History mcg (1,000 unit) capsule (Vitamin D3) omega 1-htw-guc-fish oil 300 1 cap PO DAILY 06/19/23 08/17/24 H istory mg-1,000 mg capsule (Fish Oil) multivitamin 1 tab PO DAILY 07/02/23 08/17/24 H istory atorvastatin 20 mg tablet (Lipitor) 20 mg PO QHS #90 tabs 11/03/23 08/17/24 Rx candesartan 4 mg tablet 4 mg PO DAILY #90 tabs 11/03/23 Rx metoprolol succinate 25 mg 25 mg PO DAILY #90 tabs 11/03/23 0 08/17/24 Rx tablet,extended release 24 hr albuterol sulfate 90 mcg/actuation 2 inh inhalation Q4H PRN shortne ss 05/11/24 08/17/24 Rx aerosol inhaler (Ventolin HFA) of breath or wheezing #8.5 grams fluticasone fur. 100 mcg-umeclid 1 ea inhalation QDAY #60 ea 08/17/24 Rx 62.5 mcg-vilant 25 mcg inhalat.powder (Trelegy Ellipta) Have you fallen in the past year?: No PFSH Medical History Aortic root dilation Heart murmur Bowel obstruction Cataracts, both eyes Esophageal spasm Migraine Aortic aneurysm Osteoporosis HTN (hypertension) COPD (chronic obstructive pulmonary disease) Back fracture Broken bones Breast cancer Surgical History History of hysterectomy History of lumpectomy of left breast History of bowel resection H/O hemorrhoidectomy History of tonsillectomy H/O section Hx of appendectomy Family History Father Lung cancer Social History household members: family housing: house number of children: 3 pets and animals: Yes Smoking Status: Former smoker substance use type: does not use ROS Const Const: Negative for fatigue, weakness, headache(s), daytime sleepiness or difficulty sleeping ENT ENT: Negative for headache(s), dizziness or Nosebleed/epistaxis Cardio Chest Pain: No Palpitations: No Edema: None Resp Respiratory: Positive for SOB with activity; Negative for SOB at rest, SOB orthopnea SOB lying down or Cough GI GI: Negative nausea, vomiting or heartburn Neuro Neuro: Negative for dizziness, lightheadedness, near syncope, headache(s) or weakness Endo Endo: Negative for fatigue Cardiology Exam Const Appearance: cooperative, healthy appearing, no acute distress, well deve (more content not included)... Normal [facility] 6 Minute Walk Teston 025 6 Minute Walk Test y [facility] Pulmonary Services/Neurology [address] [place] [address] MR#: [id number] Acct: [id number] Name: GRIS CURRY Rep #: [id number] : 1945 79 From: Seb eHart DO Referring Dr: Seb Heart DO Status: REG CLI Location: PSN Date: Sex: F C PSN 6 Minute Walk Test 6 Minute Walk Test 6 Minute Walk Test: 6 Minute Walk Test PSN:6-Minute Walk Test Start: 08/10/24 11:35 Freq: Status: Active Protocol: RESP.[id number] Document 08/10/24 11:35 ÁLVARO (Rec: 08/10/24 11:39 BANNER [id number]) 6 Minute Walk Test Date Performed 08/10/24 Time Performed 11:15 Height 5 ft 4 in Weight: 120 lb Weight in Pounds 120.[address]: Seb Heart Assistive device None used: Pre-test Oxygen Delivery Room Air Method Pulse Ox (%) 96 Pulse Rate (60-100 105 H beats/min) Dyspnea Ellyn Scale ( 0.5 0-10) Exertion Ellyn Scale 6 (6-20) 1st minute Oxygen Delivery Room Air Method Pulse Ox (%) 93 Pulse Rate (60-100 111 H beats/min) 2nd minute Oxygen Delivery Room Air Method Pulse Ox (%) 85 Pulse Rate (60-100 120 H beats/min) 3rd minute Oxygen Flow Rate (L/ 2 min) (L/min) Oxygen Delivery Nasal Cannula Method Pulse Ox (%) 97 Pulse Rate (60-100 117 H beats/min) 4th minute Oxygen Flow Rate (L/ 2 min) (L/min) Oxygen Delivery Nasal Cannula Method Pulse Ox (%) 96 Pulse Rate (60-100 125 H beats/min) 5th minute Oxygen Flow Rate (L/ 2 min) (L/min) Oxygen Delivery Nasal Cannula Method Pulse Ox (%) 94 Pulse Rate (60-100 125 H beats/min) 6th minute Oxygen Flow Rate (L/ 2 min) (L/min) Oxygen Delivery Nasal Cannula Method Pulse Ox (%) 93 Pulse Rate (60-100 128 H beats/min) Dyspnea Ellyn Scale ( 3 0-10) Exertion Ellyn Scale 12 (6-20) Post-test Oxygen Flow Rate (L/ 2 min) (L/min) Oxygen Delivery Nasal Cannula Method Pulse Ox (%) 98 Pulse Rate (60-100 100 beats/min) Full Laps Walked 17 Partial Lap, Number 8 of Tiles Walked Total Distance 1011 Walked (ft) Interpretation Interpretation: The patient ambulated 1011 feet over the course of 6 minutes beginning on room air without assistive devices. Pretesting oxygen saturation was noted to be 96% on room air. With ambulation, the juliet oxygen saturation was 85%. 2 L/min of supplemental oxygen was applied, and the patient was able to complete the remainder of the test while maintaining appropriate saturations. Recommendations Recommendations: 2 L/min of supplemental oxygen should be utilized with exertion. 08/12/24 1234 Date Seb Heart DO CC: Date Dictated: 08/12/24 1234 Date Transcribed: 08/12/241233 Identification Printing Machine Setter: Dr. Seb Heart, DO Signed Normal [facility] Absolute lymphocyte countOrd ered By: Armen Durbin on 07-30-2024 Lymphocytes Auto (Unsp spec) [#/Vol] 1.86 10*3/uL 0.83-4.51 [facility] Absolute neutrophil countOrd ered By: Armen Durbin on 07-30-2024 Neutrophils (Bld) [#/Vol] 7.0 10*3/uL 2.0-7.7 [facility] Automated lymphocyte count a s percentage of total leukocytesOrdered By: Armen Harrisonke on 07-30-2024 Lymphocytes/100 WBC Auto (Unsp spec) 18.8 % Low 19-41 [facility] Basophil percentageOrdered B y: Armen Durbin on 07-30-2024 Basophils/100 WBC (Bld) 0.9 % 0-1 [facility] CBC W/Diff, Automatedon Absolute Lymph 1.86 X10 3/uL Normal 0.83-4.51 [facility] Comment on above: Order Comment: Order Date: 07/30/24 Order Info: 0184-1 - CBCD Performed By: #### L 100.0100 #### [facility] [address] [place], [place], [address] Absolute Neut 7.0 X10 3/uL Normal 2.0-7.7 [facility] Comment on above: Order Comment: Order Date: 07/30/24 Order Info: 0184-1 - CBCD Performed By: #### L 100.0100 #### [facility] [address] [place], [address] Basophils/100 WBC (Bld) 0.9 % Normal 0-1 [facility] Comment on above: Order Comment: Order Date: 07/30/24 Order Info: 0184-1 - CBCD Performed By: #### L 100.0100 #### [facility] [address] [place], [address] Eosinophils/100 WBC (Bld) 2.0 % Normal 0-5 [facility] Comment on above: Order Comment: Order Date: 07/30/24 Order Info: 0184-1 - CBCD Performed By: #### L 100.0100 #### [facility] [address] [place], [address] Erythrocyte distribution width (RBC) [Ratio] 12.7 % Normal 11.6-14.6 [facility] Comment on above: Order Comment: Order Date: 07/30/24 Order Info: 0184-1 - CBCD Performed By: #### L 100.0100 #### [facility] [address] [place], [address] Hematocrit (Bld) [Volume fraction] 46.1 % Normal 37-47 [facility] Comment on above: Order Comment: Order Date: 07/30/24 Order Info: 0184-1 - CBCD Performed By: #### L 100.0100 #### [facility] [address] [place], [address] Hemoglobin (Bld) [Mass/Vol] 15.0 g/dL Normal 12.0-15.0 [facility] Comment on above: Order Comment: Order Date: 07/30/24 Order Info: 0184-1 - CBCD Performed By: #### L 100.0100 #### [facility] [address] [place], [address] IG% 0.300 Normal 0.0-0.9 [facility] Comment on above: Order Comment: Order Date: 07/30/24 Order Info: 0184-1 - CBCD Result Comment: IG% - Immature Granulocytes (promyelocytes, myelocytes and metamyelocytes) > 1% indicates that a LEFT SHIFT is Present. Performed By: #### L 100.0100 #### [facility] [address] [place], [address] Lymphocytes/100 WBC (Bld) 18.8 % Low 19-41 [facility] Comment on above: Order Comment: Order Date: 07/30/24 Order Info: 0184-1 - CBCD Performed By: #### L 100.0100 #### [facility] [address] [place], [address] MCH (RBC) [Entitic mass] 32.4 pg High 27.0-32.0 [facility] Comment on above: Order Comment: Order Date: 07/30/24 Order Info: 0184-1 - CBCD Performed By: #### L 100.0100 #### [facility] [address] [place], [address] MCHC (RBC) [Mass/Vol] 32.5 g/dL Normal 32-36 [facility] Comment on above: Order Comment: Order Date: 07/30/24 Order Info: 0184-1 - CBCD Performed By: #### L 100.0100 #### [facility] [address] [place], [address] MCV (RBC) [Entitic vol] 99.6 fL High 81-99 [facility] Comment on above: Order Comment: Order Date: 07/30/24 Order Info: 0184-1 - CBCD Performed By: #### L 100.0100 #### [facility] [address] [place], [address] Monocytes/100 WBC (Bld) 7.3 % Normal 0-10 [facility] Comment on above: Order Comment: Order Date: 07/30/24 Order Info: 0184-1 - CBCD Performed By: #### L 100.0100 #### [facility] [address] [place], [address] Neutrophils/100 WBC (Bld) 70.7 % High 47-70 [facility] Comment on above: Order Comment: Order Date: 07/30/24 Order Info: 0184-1 - CBCD Performed By: #### L 100.0100 #### [facility] [address] [place], [address] Nucleated RBC (Bld) [#/Vol] 0 10*3/uL Normal 0-5 [facility] Comment on above: Order Comment: Order Date: 07/30/24 Order Info: 0184-1 - CBCD Performed By: #### L 100.0100 #### [facility] [address] [place], [address] Platelet mean volume (Bld) [Entitic vol] 9.4 fL Normal 6.2-12.0 [facility] Comment on above: Order Comment: Order Date: 07/30/24 Order Info: 0184-1 - CBCD Performed By: #### L 100.0100 #### [facility] [address] [place], [address] Platelets (Bld) [#/Vol] 356 10*3/uL Normal 150-450 [facility] Comment on above: Order Comment: Order Date: 07/30/24 Order Info: 0184-1 - CBCD Performed By: #### L 100.0100 #### [facility] [address] [place], [address] RBC (Bld) [#/Vol] 4.63 10*6/uL Normal 4.2-5.4 [facility] Comment on above: Order Comment: Order Date: 07/30/24 Order Info: 0184-1 - CBCD Performed By: #### L 100.0100 #### [facility] [address] [place], [address] RDW SD 46.3 fl High 35.1-43.9 [facility] Comment on above: Order Comment: Order Date: 07/30/24 Order Info: 0184-1 - CBCD Performed By: #### L 100.0100 #### [facility] [address] [place], [place], [address] WBC (Bld) [#/Vol] 9.9 10*3/uL Normal 4.4-11.0 [facility] Comment on above: Order Comment: Order Date: 07/30/24 Order Info: 0184-1 - CBCD Performed By: #### L 100.0100 #### [facility] [address] [place], [place], [address] Eosinophil percentageOrdered By: Armen Durbin on 07-30-2024 Eosinophils/100 WBC (Bld) 2.0 % 0-5 [facility] Erythrocyte distribution wid th (RBC) [Ratio]Ordered By: Armen Ramakrishna on 07-30-2024 Erythrocyte distribution width (RBC) [Entitic vol] 46.3 fL High 35.1-43.9 [facility] Erythrocyte distribution wid th ratioOrdered By: [facility] on 07-30-2024 Erythrocyte distribution width (RBC) [Ratio] 12.7 % 11.6-14.6 [facility] Erythrocyte distribution wid th standard deviationOrdered By: [facility] Hospital[facility] on 07-30-2024 Erythrocyte distribution width (RBC) [Ratio] 46.3 fl High 35.1-43.9 [facility] Hematocrit Auto (Bld) [Volum e fraction]Ordered By: Armen Durbin on 07-30-2024 Hematocrit (Bld) [Volume fraction] 46.1 % 37-47 [facility] Hemoglobin measurementOrdere d By: [facility] Hemoglobin (Bld) [Mass/Vol] 15.0 g/dL 12.0-15.0 [facility] Immature granulocytes/100 WB C Auto (Bld)Ordered By: [facility] on 07-30-2024 Immature granulocytes/100 WBC (Bld) 0.300 % 0.0-0.9 [facility] Comment on above: IG% - Immature Granu locytes (promyelocytes, myelocytes and metamyelocytes) > 1% indicates that a LEFT SHIFT is Present. Lymphocytes Auto (Unsp spec) [#/Vol]Ordered By: Armen Durbin on 07-30-2024 Lymphocytes (Bld) [#/Vol] 1.86 10*3/uL 0.83-4.51 [facility] Lymphocytes/100 WBC Auto (Un sp spec)Ordered By: Armen Durbin on 07-30-2024 Lymphocytes/100 WBC (Bld) 18.8 % Low 19-41 [facility] MCV (mean corpuscular volume ) determinationOrdered By: Armen Durbin on 07-30-2024 MCV (RBC) [Entitic vol] 99.6 fL High 81-99 [facility] Magnesiumon 07-30-2024 Magnesium [Mass/Vol] 2.1 mg/dL Normal 1.5-2.2 [facility] Comment on above: Order Comment: Order Date: 07/30/24 Order Info: [id number] - MG Performed By: #### L [id number] #### [facility] Laboratory [address] [place] [address], [id number] Magnesium (Unsp spec) [Mass/ Vol]Ordered By: Armen Durbin on 07-30-2024 Magnesium [Mass/Vol] 2.1 mg/dL 1.5-2.2 [facility] Magnesium measurement (mass/ volume)Ordered By: Armen Durbin on 07-30-2024 Magnesium (Unsp spec) [Mass/Vol] 2.1 mg/dL 1.5-2.2 [facility] Mean corpuscular hemoglobin (MCH) determinationOrdered By: Armen Durbin on 07-30-2024 MCH (RBC) [Entitic mass] 32.4 pg High 27.0-32.0 [facility] Mean corpuscular hemoglobin concentration (MCHC) determinationOrdered By: Armen Durbin on 07-30-2024 MCHC (RBC) [Mass/Vol] 32.5 g/dL 32-36 [facility] Mean platelet volume determi nationOrdered By: Armen Durbin on 07-30-2024 Platelet mean volume (Bld) [Entitic vol] 9.4 fL 6.2-12.0 [facility] Monocyte percentageOrdered B y: Armen Harrisonke on 07-30-2024 Monocytes/100 WBC (Bld) 7.3 % 0-10 [facility] Neutrophil percentageOrdered By: Armen Harrisonke on 07-30-2024 Neutrophils/100 WBC (Bld) 70.7 % High 47-70 [facility] Nucleated red blood cell per centageOrdered By: Armen Harrisonke on 07-30-2024 Nucleated RBC/100 WBC (Bld) [Ratio] 0 % 0-5 [facility] Platelet countOrdered By: Alana barnetton Ramakrishna on 07-30-2024 Platelets (Bld) [#/Vol] 356 10*3/uL 150-450 [facility] RBC Auto (Bld) [#/Vol]Ordere d By: Armen Harrisonke on 07-30-2024 RBC (Bld) [#/Vol] 4.63 10*6/uL 4.2-5.4 [facility] White blood cell (WBC) count Ordered By: Armen Durbin on 07-30-2024 WBC (Bld) [#/Vol] 9.9 10*3/uL 4.4-11.0 [facility] Pulmonary Visit Reporton Pulmonary Visit Report [facility] [place] [address] [place] [address] OFFICE VISIT Date of Service: 03/23/24 MR#: [id number] Acct: [id number] Name: GRIS CURRY Rep #: [id number] : 1945 Provider: Dr. Seb Heart DO Age/Sex: 79/F Location: [facility] Status: Signed Assessment and Plan Assessment and Plan (1) COPD (chronic obstructive pulmonary disease): Status: Chronic Plan: The patient has a known history of moderately severe COPD based upon pulmonary function studies completed in 2020. The patient remains on a stable inhaler regimen with Trelegy Ellipta and as needed albuterol. She has an approximate 03-yugy-tbvz smoking history and reportedly quit completely in 2022. In light of her residual shortness of breath, will obtain follow-up PFTs to better assess her new baseline as compared to 2020 along with a 6-minute walk test to assess for any exertional hypoxemia. In the interim, the patient will be continued on her triple therapy inhaler regimen. She was encouraged to contact our office with any worsening in her breathing quality and/or increasing reliance on her short acting beta agonist. I did discuss the idea of enrollment in pulmonary rehabilitation with the patient. She remains precontemplative. This issue can be further addressed at her next office visit. (2) Nicotine dependence, cigarettes, in remission: Status: Chronic Plan: Ongoing tobacco cessation is strongly recommended. The patient would be a candidate for low-dose CT screening. However, she is apparently being considered for a CTA chest in July by her inside sales manager to evaluate her aneurysm. With this in mind, we will hold off on ordering a low-dose CT scan. If for some reason the CTA is not completed in the spring, a low-dose CT scan can be ordered at her follow-up office visit. Orders: Orders Simple Pulmonary Exercise Test 08/10/24 J44.9 - Chronic obstructive pulmonary disease, unspecified Pulmonary Function Test (Comp) 08/12/24 J44.9 - Chronic obstructive pulmonary disease, unspecified Plan Details Follow Up: 6 Months HPI HPI Comments Details: The patient is a 79-year-old female who presents to the clinic today in referral for the evaluation of COPD. The patient was previously a resident of [place] until relocating here in the fall 2022. She was previously followed by a distribution center associate while residing in [place]. The patient lived there for approximately 72 years prior to relocating here. The patient has a 75-zroh-xezm smoking history, having quit completely in 2022, along with moderately severe obstructive lung disease with significant bronchodilator response noted on PFTs from April 2020. FEV1 at that time was noted to be 51% of predicted. In addition, alpha 1 antitrypsin screening demonstrated an M2S phenotype with normal activity 123 mg/dL. She has a moderate degree of emphysema noted on high-resolution chest CT along with a 4.3 cm ascending aortic aneurysm. 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 She does have a history of breast cancer status post lumpectomy and radiation therapy 30 years ago. The patient is currently on a stable inhaler regimen that includes Trelegy Ellipta and as needed albuterol. In general, the patient reported that she typically pretreats herself with albuterol prior to engaging in strenuous physical activity. She has a mild degree of exertional shortness of breath, but denies any chest tightness, wheezing or cough. She has not experienced any recent exacerbations. It is unclear as to whether any low-dose CT scans have been completed recently. The patient has never completed pulmonary rehabilitation previously. Intake Vital Signs 07/02/23 10:47 03/23/24 08:59 Height 5 ft 4 in 5 ft 4 in Weight: 117 lb BMI 20.0 BP 163/71 H Blood Pressure Location Rt brachial Position Sitting Respiration 20 H Pulse 64 Pulse Source Monitor Temp 98.0 F Temperature Source Temporal Artery Pulse Oximetry (%) 95 Oxygen Delivery Method room air Intake Visit Reasons: COPD Swimming Coach Required: No Accompanied by: Self Allergies hydrocodone Allergy (Verified 03/23/24 10:33) Itching fentanyl Adverse Reaction (Verified 03/23/24 10:33) SENSITIVE hydrochlorothiazide Adverse Reaction (Verified 03/23/24 10:33) SUN SENSITIVITY Medications ???Medication ???Instructions ???Recorded ???Confirmed ???Type albuterol sulfate 90 mcg/actuation 2 puff inhalation Q6H PRN 06/19/23 03/23/24 History aerosol inhaler (Ventolin HFA) aspirin 81 mg tablet,delayed 81 mg PO DAILY 06/19/23 03/23/24 History release (Adult Aspirin Regimen) cholecalciferol (vitamin D3) 25 25 mcg PO DAILY 06/19/23 03/23/24 History mcg (1,000 unit) capsule (Vitamin D3) omega 3-dha-ep (more content not included)... Normal [facility] No Panel InformationOrdered By: Armen Durbin on 07-03-2023 Free Triiodothyronine (T3) pg/dL 4.0 pg/mL 2.18-3.98 [facility] Serum or plasma thyroid stim ulating hormone (TSH) measurement (units/volume)Ordered By: Armen Durbin on 07-03-2023 TSH Qn 0.01 uIU/mL 0.358-3.74 [facility] Serum or plasma thyroperoxid ase antibody assay (units/volume)Ordered By: Armen Durbin on 07-03-2023 TPO Ab Qn 81 [IU]/mL 0-34 [facility] Comment on above: Performed at: [address] [id number] Director: Salazar Pettit PhD, Phone: [phone] Thin prep Papanicolaou smear with manual screeningOrdered By: Armen Harrisonke on 07-03-2023 Thin prep Papanicolaou smear with manual screening 1.59 ng/dL 0.76-1.46 [facility] Absolute lymphocyte countOrd ered By: Armen Ramakrishna on 06-18-2023 Lymphocytes Auto (Unsp spec) [#/Vol] 2.01 10*3/uL 0.83-4.51 [facility] Automated lymphocyte count a s percentage of total leukocytesOrdered By: Armen Harrisonke on 06-18-2023 Lymphocytes/100 WBC Auto (Unsp spec) 30.0 % 19-41 [facility] Basophil percentageOrdered B y: Armen Ramakrishna on 06-18-2023 Basophils/100 WBC (Bld) 1.2 % 0-1 [facility] Bilirubin [Mass/Vol] 0.80 mg/dL 0.20-1.00 [facility] Comment on above: For patients on eltr ombopag therapy, use of Dimension [place] TBIL is not recommended. Chloride [Moles/Vol] 109 mmol/L 98-107 [facility] Cholesterol [Mass/Vol] 115 mg/dL <200 [facility] Comment on above: <200 mg/dL Desirable 200-240 mg/dL Borderline >240 mg/dL High Risk Eosinophils/100 WBC (Bld) 5.8 % 0-5 [facility] Glucose [Mass/Vol] 110 mg/dL 74-106 [facility] Comment on above: Fasting Glucose resu lt from 100 to 125 mg/dL suggests IMPAIRED HOMEOSTASIS per A.D.A. criteria. Hemoglobin (Bld) [Mass/Vol] 14.5 g/dL 12.0-15.0 [facility] Monocytes/100 WBC (Bld) 9.4 % 0-10 [facility] Neutrophils (Bld) [#/Vol] 3.6 10*3/uL 2.0-7.7 [facility] Neutrophils/100 WBC (Bld) 53.2 % 47-70 [facility] Potassium [Moles/Vol] 4.3 mmol/L 3.5-5.1 [facility] Protein [Mass/Vol] 7.4 g/dL 6.4-8.2 [facility] Sodium [Moles/Vol] 141 mmol/L 136-145 [facility] Triglyceride [Mass/Vol] 87 mg/dL <199 [facility] Comment on above: The drugs N-Acetylcy steine and Metamizole may falsely depress this assay.Serum Triglycerides Reference Interval Normal <150 mg/dL Borderline high 150 - 199 mg/dL High 200 - 499 mg/dL Very High > or = 500 mg/dL WBC (Bld) [#/Vol] 6.7 10*3/uL 4.4-11.0 [facility] Determination of erythrocyte mean corpuscular volume (MCV)Ordered By: Armen Durbin on 06-18-2023 MCV (RBC) [Entitic vol] 100.7 fL 81-99 [facility] Erythrocyte distribution wid th ratioOrdered By: [facility] Center[facility] on 06-18-2023 Erythrocyte distribution width (RBC) [Ratio] 12.7 % 11.6-14.6 [facility] Erythrocyte distribution wid th standard deviationOrdered By: [facility] Center[facility] on 06-18-2023 Erythrocyte distribution width (RBC) [Entitic vol] 47.1 fL 35.1-43.9 [facility] Hematocrit Auto (Bld) [Volum e fraction]Ordered By: Armen Durbin on 06-18-2023 Hematocrit (Bld) [Volume fraction] 45.5 % 37-47 [facility] Immature granulocytes/100 WB C Auto (Bld)Ordered By: Armen Ramakrishna on 06-18-2023 Immature granulocytes/100 WBC (Bld) 0.400 % 0.0-0.9 [facility] Comment on above: IG% - Immature Granu locytes (promyelocytes, myelocytes and metamyelocytes) > 1% indicates that a LEFT SHIFT is Present. Laboratory - Chemistry and C hemistry - challengeOrdered By: Armen Durbin on 06-18-2023 Albumin/Globulin [Mass ratio] 0.9 {ratio} 0.9-2.4 [facility] ALP [Catalytic activity/Vol] 104 U/L 45-117 [facility] ALT [Catalytic activity/Vol] 26 U/L 13-56 [facility] Cholesterol in HDL [Mass/Vol] 57 mg/dL >40 [facility] Comment on above: The drugs N-Acetylcy steine and Metamizole may falsely depress this assay. Reference Range HDL <40 mg/dL Low HDL Cholesterol HDL >or= 60 mg/dL High HDL Cholesterol Cholesterol in LDL [Mass/Vol] 41 mg/dL 0-130 [facility] CO2 [Moles/Vol] 29.0 mmol/L 21.0-32.0 [facility] Globulin (S) [Mass/Vol] 3.8 g/dL 2.2-4.2 [facility] Urea nitrogen/Creatinine [Mass ratio] 16.0 mg/mg 10-20 [facility] Laboratory - Hematology and Cell countsOrdered By: Armen Durbin on 06-18-2023 MCH (RBC) [Entitic mass] 32.1 pg 27.0-32.0 [facility] MCHC (RBC) [Mass/Vol] 31.9 g/dL 32-36 [facility] Nucleated RBC/100 WBC (Bld) [Ratio] 0 % 0-5 [facility] Platelet mean volume (Bld) [Entitic vol] 9.7 fL 6.2-12.0 [facility] Platelets (Bld) [#/Vol] 339 10*3/uL 150-450 [facility] No Panel InformationOrdered By: Armen Durbin on 06-18-2023 Estimated GFR (MDRD) Amer 81 mL/min >60 [facility] Comment on above: GFR Calc Estimated GFR (MDRD) Non-Af Amer 67 mL/min >60 [facility] Comment on above: Non- GFR Calc Vitamin D 25-Hydroxy 55.8 ng/mL [facility] Comment on above: Vitamin D 25(OH) Sta tus Range Deficiency <20 ng/mL (50nmol/L) Insufficiency 20 - 30 ng/mL (50 - 75 nmol/L) Sufficiency 30 - 100 ng/mL (75 - 250 nmol/L) Toxicity >100 ng/mL (>250 nmol/L) VLDL Cholesterol 17 mg/dL 5-40 [facility] RBC Auto (Bld) [#/Vol]Ordere d By: Armen Durbin on 06-18-2023 RBC (Bld) [#/Vol] 4.52 10*6/uL 4.2-5.4 [facility] Serum or plasma calcium marisol urement (mass/volume)Ordered By: Armen Durbin on 06-18-2023 Calcium [Mass/Vol] 9.1 mg/dL 8.5-10.1 [facility] Serum or plasma creatinine m easurement (mass/volume)Ordered By: Armen Durbin on 06-18-2023 Creatinine [Mass/Vol] 0.88 mg/dL 0.55-1.02 [facility] Comment on above: The validity of the calculated GFR & GFRAA in patients over 70 years has not been determined. Clinical correlation is essential. Serum or plasma thyroid stim ulating hormone (TSH) measurement (units/volume)Ordered By: Armen Durbin on 06-18-2023 TSH Qn 0.01 uIU/mL 0.358-3.74 [facility] Serum or plasma urea nitroge n measurement (mass/volume)Ordered By: Armen Durbin on 06-18-2023 Urea nitrogen [Mass/Vol] 14 mg/dL 7-18 [facility] Thin prep Papanicolaou smear with manual screeningOrdered By: Armen Durbin on 06-18-2023 Thin prep Papanicolaou smear with manual screening 3.6 g/dL 3.2-5.0 [facility] Thin prep Papanicolaou smear with manual screening 19 U/L 15-37 [facility] Thin prep Papanicolaou smear with manual screening 3 5-15 [facility] Vital Signs Date Time Vital Sign Value Performing Clinician Faci lity 02-09-2025 08:25-0400 Body mass index (BMI) [Ratio] 20 kg/m2 Armen Durbin MD Work Phone: [facility] 02-09-2025 08:25-0400 Body temperature 97.6 [degF] Armen Durbin MD Work Phone: [facility] 02-09-2025 08:25-0400 Body weight 53.07 kg Armen Durbin MD Work Phone: [facility] 02-09-2025 08:25-0400 Diastolic blood pressure 80 mm[Hg] Armen Durbin MD Work Phone: [facility] 02-09-2025 08:25-0400 Heart rate 68 /min Armen Durbin MD Work Phone: [facility] 02-09-2025 08:25-0400 Respiratory rate 18 /min Armen Durbin MD Work Phone: [facility] 02-09-2025 08:25-0400 SaO2% (BldA) [Mass fraction] 96 % Armen Durbin MD Work Phone: [facility] 02-09-2025 08:25-0400 Systolic blood pressure 132 mm[Hg] Armen Durbin MD Work Phone: [facility] 10-25-2024 10:19-0400 Body height 162.56 cm Armen Durbin MD Work Phone: [facility] 10-25-2024 10:19-0400 Body temperature 98 [degF] Armen Durbin MD Work Phone: [facility] 10-25-2024 10:19-0400 Diastolic blood pressure 76 mm[Hg] Armen Durbin MD Work Phone: [phone] [place] [address] 10-25-2024 10:19-0400 Heart rate 73 /min Armen Durbin MD Work Phone: [facility] 10-25-2024 10:19-0400 Respiratory rate 18 /min Armen Durbin MD Work Phone: [facility] 10-25-2024 10:19-0400 SaO2% (BldA) [Mass fraction] 95 % Armen Durbin MD Work Phone: [facility] 10-25-2024 10:19-0400 Systolic blood pressure 152 mm[Hg] Armen Durbin MD Work Phone: [facility] 09-23-2024 07:58-0400 Body mass index (BMI) [Ratio] 20.9 kg/m2 Armen Durbin MD Work Phone: [facility] 09-23-2024 07:58-0400 Body temperature 97.5 [degF] Armen Durbin MD Work Phone: [facility] 09-23-2024 07:58-0400 Body weight 55.33 kg Armen Durbin MD Work Phone: [facility] 09-23-2024 07:58-0400 Diastolic blood pressure 84 mm[Hg] Armen Durbin MD Work Phone: [facility] 09-23-2024 07:58-0400 Heart rate 65 /min Armen Durbin MD Work Phone: [facility] 09-23-2024 07:58-0400 Respiratory rate 16 /min Armen Durbin MD Work Phone: [facility] 09-23-2024 07:58-0400 SaO2% (BldA) [Mass fraction] 97 % Armen Durbin MD Work Phone: [facility] 09-23-2024 07:58-0400 Systolic blood pressure 145 mm[Hg] Armen Durbin MD Work Phone: [facility] 08-17-2024 10:26-0400 Body height 162.56 cm Armen Durbin MD Work Phone: [facility] 08-17-2024 10:26-0400 Body mass index (BMI) [Ratio] 21.2 kg/m2 Armen Durbin MD Work Phone: [facility] 08-17-2024 10:26-0400 Body weight 56.24 kg Armen Durbin MD Work Phone: [facility] 08-17-2024 10:26-0400 Diastolic blood pressure 74 mm[Hg] Armen Durbin MD Work Phone: [facility] 08-17-2024 10:26-0400 Heart rate 62 /min Armen Durbin MD Work Phone: [facility] 08-17-2024 10:26-0400 Respiratory rate 16 /min Armen Durbin MD Work Phone: [facility] 08-17-2024 10:26-0400 Systolic blood pressure 131 mm[Hg] Armen Durbin MD Work Phone: [facility] 08-10-2024 11:35-0400 Body height 162.56 cm Armen Durbin MD Work Phone: [facility] 08-10-2024 11:35-0400 Body weight 54.43 kg Armen Durbin MD Work Phone: [facility] 08-10-2024 11:35-0400 Heart rate 105 /min Armen Durbin MD Work Phone: [facility] 08-10-2024 11:35-0400 Inhaled oxygen flow rate 2 L/min Armen Durbin MD Work Phone: [facility] 08-10-2024 11:35-0400 SaO2% (BldA) [Mass fraction] 96 % Armen Durbin MD Work Phone: [facility] 07-02-2023 10:47-0500 Body height 162.56 cm No Primary Care Physician [facility] 07-02-2023 10:47-0500 Body mass index (BMI) [Ratio] 17.5 kg/m2 No Primary Care Physician [facility] 07-02-2023 10:47-0500 Body weight 46.4 kg No Primary Care Physician [facility] 07-02-2023 10:47-0500 Diastolic blood pressure 71 mm[Hg] No Primary Care Physician [facility] 07-02-2023 10:47-0500 Heart rate 83 /min No Primary Care Physician [facility] 07-02-2023 10:47-0500 Respiratory rate 16 /min No Primary Care Physician [facility] 07-02-2023 10:47-0500 Systolic blood pressure 132 mm[Hg] No Primary Care Physician [facility] 02-19-2023 20:20-0400 Respiratory rate 16 /min [facility] 02-19-2023 14:07-0400 Body height 162.56 cm [facility] 02-19-2023 14:07-0400 Body temperature 97.8 [degF] [facility] 02-19-2023 14:07-0400 Diastolic blood pressure 106 mm[Hg] [facility] 02-19-2023 14:07-0400 Heart rate 121 /min [facility] 02-19-2023 14:07-0400 SaO2% (BldA) [Mass fraction] 98 % [facility] 02-19-2023 14:07-0400 Systolic blood pressure 144 mm[Hg] [facility] Encounters Encounter Date Encounter Type Care Provider Facility Start: 02-25-2025 ambulatory [facility] Facility:[facility] Start: 02-18-2025 Encounter for preprocedural laboratory examination Emily Kinsey NP [facility] Start: 02-09-2025 Patient encounter procedure Emily Kinsey NP-C -[facility] Start: 02-09-2025 End: 02-09-2025 Patient encounter procedure Emily Kinsey NP-C -[facility] Work Phone: Start: 02-09-2025 End: 02-09-2025 ambulatory Armen Durbin MD Work Phone: -[facility] Start: 02-09-2025 End: 02-09-2025 ambulatory Armen Durbin Facility:[facility] Start: 01-31-2025 End: 01-31-[address] Armen Durbin MD -Laboratory [facility] Start: 01-31-2025 End: 01-31-2025 ambulatory Armen Durbin Facility:[facility] Start: 01-28-2025 End: 01-28-2025 Patient encounter procedure Emily HERRINGC -Cat Scan [facility] Work Phone: Start: 01-28-2025 End: 01-28-2025 ambulatory Armen Durbin Facility:[facility] Start: 10-25-2024 End: 10-25-2024 Patient encounter procedure Emily FLEMING -[facility] Work Phone: Start: 10-25-2024 End: 10-25-2024 ambulatory Armen Durbin MD Work Phone: -[facility] Start: 10-21-2024 End: 10-21-2024 ambulatory Armen Durbin MD Work Phone: -Cat Scan [facility] Start: 10-21-2024 End: 10-21-2024 Patient encounter procedure Emily HERRINGC -Cat Scan [facility] Work Phone: Start: 10-21-2024 End: 10-21-2024 ambulatory [facility] Facility:[facility] Start: 09-23-2024 End: 09-23-2024 Patient encounter procedure Emily FLEMING -[facility] Work Phone: Start: 09-23-2024 End: 09-23-2024 ambulatory Armen Durbin MD Work Phone: [facility] Work Phone: Start: 09-23-2024 End: [facility] Start: 08-17-2024 End: 08-17-[address] Pawan Beal MD -[facility] Work Phone: Start: 08-17-2024 End: 08-17-2024 ambulatory Armen Durbin Facility:[facility] Start: 08-12-2024 ambulatory Armen Durbin Facility:[facility] Start: 08-12-2024 Non-patient / Non-visit Dr. Seb tom DO -[facility] Start: 08-12-2024 End: 08-12-2024 ambulatory Armen Durbin MD Work Phone: [facility] Work Phone: Start: 08-12-2024 End: 08-12-[address] Seb Heart DO -Pulmonary Services/Neurology Work Phone: Start: 08-12-2024 End: 08-12-2024 ambulatory Seb Heart Facility:[facility] Start: 08-10-2024 End: 08-10-2024 ambulatory Armen Durbin MD Work Phone: [facility] Work Phone: Start: 08-10-2024 End: 08-10-[address] Seb Heart DO -Pulmonary Services/Neurology Work Phone: Start: 08-10-2024 End: 08-10-2024 ambulatory Seb Heart Facility:[facility] Start: 07-30-2024 End: 07-30-2024 ambulatory Armen Durbin MD Work Phone: [facility] Work Phone: Start: 07-30-2024 End: 07-30-[address] Armen Durbin MD -Laboratory, [facility] Start: 07-30-2024 End: 07-30-2024 ambulatory Armen Durbin Facility:[facility] Start: 03-23-2024 End: 03-23-2024 ambulatory [facility] Start: 07-29-2023 End: 07-29-2023 ambulatory No Primary Care Physician [facility] Work Phone: Start: 07-29-2023 End: 07-29-2023 Patient encounter procedure No Primary Care Physician [facility]-Outpatient Breast Imaging Work Phone: Start: 07-28-2023 Non-patient / Non-visit No [facility] Physician [facility] Start: 07-28-2023 End: 07-28-2023 ambulatory No Primary Care Physician [facility] Work Phone: Start: 07-28-2023 End: 07-28-2023 Patient encounter procedure No Primary Care Physician [facility]-Cardiovascula r Services Work Phone: Start: 07-24-2023 End: 07-24-2023 ambulatory No Primary Care Physician [facility] Work Phone: Start: 07-24-2023 End: 07-24-2023 Patient encounter procedure No Primary Care Physician [facility]-Ultrasound, [facility] Work Phone: Start: 07-03-2023 End: 07-03-2023 ambulatory No Primary Care Physician [facility] Work Phone: Start: 07-03-2023 End: 07-03-2023 Patient encounter procedure No [facility] Care Phys[facility] Start: 07-02-2023 End: 07-02-2023 Patient encounter procedure No Primary Care Physician [facility] Work Phone: Start: 06-18-2023 End: 06-18-2023 Patient encounter procedure No Primary Care Physician [facility] Start: 02-19-2023 End: 02-19-2023 Emergency department patient visit [facility]-Emergency Department Work Phone: Procedures Date Procedure Procedure Detail Performing Clinician Start: 01-31-2025 Vitamin D, 25-hydrox y measurement Armen Durbin MD Work Phone: Comment on above: Vitamin D StatusDefi ciency: <20 ng/mL (50nmol/L)Insufficiency: 20-30 ng/mL (50-75 nmol/L)Sufficiency: 30-100 ng/mL (75-250 nmol/L)Toxicity: >100 ng/mL (>250 nmol/L) Start: 01-28-2025 CT of chest without contrast Armen Durbin MD Work Phone: Start: 10-21-2024 CT of chest Armen morley MD Work Phone: Start: 07-28-2023 US scan of thyroid No P rimary Care Physician Start: 02-19-2023 X-ray of radius and ulna Start: 02-19-2023 Plain x-ray of wrist Plan of Treatment Date Care Activity Detail Author Start: 02-09-2025 [facility] Start: 07-29-2023 MG Breast - bilatera l Screening [facility] Start: 07-29-2023 Screening mammography SCRN KYM M (CAD)W/CARINE BILAT [facility] Start: 02-19-2023 [facility] Alpha 1 antitrypsin [Mass/volume] in Serum or Plasma [facility] CT Chest [facility] CT Chest [facility] Patient Education ED Fracture, W rist, General [facility] Work Phone: Patient referral [facility] Work Phone: Payers Date Payer Category Payer Self-pay 2024 Unknown [id number] 2023 Medicare [id number] 2023 Unknown [id number] Unknown [id number] 2.16.8 [id number] Unknown [id number] 2.16.8 [id number] Unknown [id number] 2.16.8 [id number] Unknown [id number] 2.16.8 40.1.658986.3.579.2.462 Unknown [id number] 2.16.8 40.1.031666.3.579.2.462 Unknown [id number] 2.16.8 40.1.036472.3.579.2.462 Unknown [id number] 2.16.8 40.1.207274.3.579.2.462 Unknown [id number] 2.16.8 40.1.015201.3.579.2.462 Unknown [id number] 2.16.8 40.1.652433.3.579.2.462 Unknown [id number] 2.16.8 40.1.567112.3.579.2.462 Unknown [id number] 2.16.8 40.1.499975.3.579.2.462 Unknown [id number] 2.16.8 40.1.372973.3.579.2.462 Unknown [id number] 2.16.8 40.1.369292.3.579.2.462 Unknown [id number] 2.16.8 40.1.976276.3.579.2.462 Unknown [id number] 2.16.8 40.1.259339.3.579.2.462 Unknown [id number] 2.16.8 [id number] Social History Date Type Detail Facility Start: 02-19-2023 End: 07-02-2023 Tobacco smoking status TNIS Unknown if ever smoked [facility] Start: 1945 Sex Assigned At Female [facility] Start: 03-23-2024 Tobacco smoking stat us TNIS Ex-smoker (finding) [facility] Start: 08-05-2024 End: 08-17-2024 Sex Female (finding) [facility] Sex Female [facility] Clinical Notes 02-19-2023 to 02-09-2025 Note Date & Type Note Facility 02-09-2025 Progress note [facility] Evaluation note Diagnosis Onset Date Resolution Abnormal chest CT acute October 252024 10:13am Gwnsp-0-rpczyjretvm deficiency acute October 25, 2024 10:13am Chronic hypoxic respiratory failure chronic October 25, 025 10:13am COPD (chronic obstructive pulmonary disease) chronic October 25, 2024 10:13am Lung nodule, solitary acute Jan 10:30am Breast cancer chronic January 10:30am Chronic hypoxic respiratory failure chronic January 10:30am COPD (chronic obstructive pulmonary disease) chronic February 09 10:30am [facility] Work Phone: 1(433) 542-810706-26-2025 Radiology Diagnostic study note [facility] Imaging Services [address] [place], [place] [address] Low Dose CT Lung Screening MR#: [id number] Acct: [id number] Name: GRIS CURRY Rep #: [id number] : 1945 F 79 From: Francine Fraire MD PCP: Dr. Armen Durbin MD Status: REG CL I Study:Low Dose CT Lung Screening Date of Exam : 10/21/24 Exam# [id number] Ordering Dr: Kika Kinsey NP [employer]-C PROCEDURE: LOW DOSE CT LUNG SCREENING 10/21/2024 REASON FOR EXAM: SMOKING 2021 TECHNIQUE: LOW DOSE CT LUNG SCREENING Coronal and Sagittal reconstruction series were provided. One or more dose reduction techniques were used (e.g., Automated exposure control, adjustment of the mA and/or kV according to patient size, use of iterative reconstruction technique). REFERENCE LINK: W4 Lung-RADS RADIATION DOSE SUMMARY: CTDlvol: 2 mGy DLP: 68 mGycm COMPARISON: No FINDINGS: Central airways are patent. Moderately severe emphysema. On the left, there is upper lobe densities favoring scar/atelectasis, more acuteairspace process, such as infection not completely excluded. Intrapulmonary lymph node. Series 601, image 185, 3 mm noncalcified upper lobenodule. Series 602, image 95, 4 mm noncalcified lower lobe nodule. On the right, dependent atelectasis. Series 2, image 167, 4 mm noncalcified lower lobe nodule. Surgical clips left axilla. Unremarkable base of neck and right axilla. Thoracic spine degeneration. Normal esophagus. Normal heart size. Dilated ascending aorta, 4.4 cm cross-section. No acute vascular pathology on noncontrast scanning. Status post left breast lumpectomy. Old T8 wedge fracture. No acute chest wallfindings. No acute upper abdominal findings. CT/Low Dose CT Lung Screening IMPRESSION: Bilateral noncalcified lung nodules measuring up to 4 mm. Lung-RADS Category: 2 Other Significant Findings: Left upper lobe airspace disease favoring postinflammatory scarring. More acute process not excluded. Three-month follow up imaging to further characterize, is recommended. Reading Location: RAD-FRAIRE-2 CC: [employer]CH[employer]IC-Kika Kinsey; Dr. 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: Signed [facility]04-22-2025 Evaluation note* Diagnosis Onset Date Resolution Status Admit Date Aortic root dilation acute Apri l 2024 10:13am HTN (hypertension) chronic August 17, 2024 10:13am [facility] Work Phone: 1(530) 745-963504-22-2025 Evaluation note* Diagnosis Onset Date Resolution Status Admit Date Aortic root dilation acute Apri l 2024 10:13am HTN (hypertension) chronic August 17, 2024 10:13am Dwoom-5-wljawgqvilh deficiency acute September 23, 2024 10:08am Chronic hypoxic respiratory failure chronic September 23, 2024 1 0:08am COPD (chronic obstructive pulmonary disease) chronic September 23 10:08am Nicotine dependence, cigarettes, in remission chronic August 10:08am Smoking greater than 20 pack years chronic September 23, 2024 1 0:08am [facility] [employer] Work Phone: 1(405) 428-455504-22-2025 Evaluation note* Diagnosis Onset Date Resolution Status Admit Date Aortic root dilation acute Apri l 2024 10:13am HTN (hypertension) chronic August 17, 2024 10:13am Nvjqy-6-wvqmagrltaz deficiency acute September 23, 2024 10:08am Chronic hypoxic respiratory failure chronic September 23, 2024 1 0:08am COPD (chronic obstructive pulmonary disease) chronic September 23 10:08am Smoking greater than 20 pack years chronic September 23, 2024 1 0:08am [facility] Work Phone: 1(909) 422-519004-22-2025 Evaluation note* Diagnosis Onset Date Resolution Status Admit Date Aortic root dilation acute Apri l 2024 10:13am HTN (hypertension) chronic August 17, 2024 10:13am Ukzkm-1-hviunhevndz deficiency acute September 23, 2024 10:08am Chronic hypoxic respiratory failure chronic September 23, 2024 1 0:08am COPD (chronic obstructive pulmonary disease) chronic September 23 10:08am Smoking greater than 20 pack years chronic September 23, 2024 1 0:08am Abnormal chest CT acute October 252024 10:13am [facility] [employer] Work Phone: 1(666) 861-216504-22-2025 Evaluation note* Diagnosis Onset Date Resolution Status Admit Date Aortic root dilation acute Apri l 2024 10:13am HTN (hypertension) chronic August 17, 2024 10:13am Ieyrc-2-kpxlpqnfubu deficiency acute September 23, 2024 10:08am Chronic hypoxic respiratory failure chronic September 23, 2024 1 0:08am COPD (chronic obstructive pulmonary disease) chronic September 23 10:08am Smoking greater than 20 pack years chronic September 23, 2024 1 0:08am Abnormal chest CT acute October 252024 10:13am Cbztk-1-cxlbqzlufpg deficiency acute October 25, 2024 10:13am Chronic hypoxic respiratory failure chronic October 25, 2024 10:13am COPD (chronic obstructive pulmonary disease) chronic October 25 10:13am [facility] Work Phone: 1(169) 470-235004-17-2025 Procedure notey [facility] Pulmonary Services/Neurology [address] [place] [address] MR#: [id number] Acct: [id number] Name: GRIS CURRY Rep #:[id number] : 1945 79 From: [facility] DO Referring Dr: [facility] DO Status : REG CLI Location: PSN Date: Sex: F C PSN 6 Minute Walk Test 6 Minute Walk Test 6 Minute Walk Test: 6 Minute Walk Test PSN:6-Minute Walk Test Start: 08/10/24 11:35 Freq: Status: Active Protocol: RESP.6MINW Document 08/10/24 11:35 SFENTON (Rec: 08/10/24 11:39 SFENTON [id number]) 6 Minute Walk Test Date Performed 08/10/24 Time Performed 11:15 Height 5 ft 4 in Weight: 120 lb Weight in Pounds 120.[address]: [facility] Assistive device None used: Pre-test Oxygen Delivery Room Air Method Pulse Ox (%) 96 Pulse Rate (60-100 105 H beats/min) Dyspnea Ellyn Scale ( 0.5 0-10) Exertion Ellyn Scale 6 (6-20) 1st minute Oxygen Delivery Room Air Method Pulse Ox (%) 93 Pulse Rate (60-100 111 H beats/min) 2nd minute Oxygen Delivery Room Air Method Pulse Ox (%) 85 Pulse Rate (60-100 120 H beats/min) 3rd minute Oxygen Flow Rate (L/ 2 min) (L/min) Oxygen Delivery Nasal Cannula Method Pulse Ox (%) 97 Pulse Rate (60-100 117 H beats/min) 4th minute Oxygen Flow Rate (L/ 2 min) (L/min) Oxygen Delivery Nasal Cannula Method Pulse Ox (%) 96 Pulse Rate (60-100 125 H beats/min) 5th minute Oxygen Flow Rate (L/ 2 min) (L/min) Oxygen Delivery Nasal Cannula Method Pulse Ox (%) 94 Pulse Rate (60-100 125 H beats/min) 6th minute Oxygen Flow Rate (L/ 2 min) (L/min) Oxygen Delivery Nasal Cannula Method Pulse Ox (%) 93 Pulse Rate (60-100 128 H beats/min) Dyspnea Ellyn Scale ( 3 0-10) Exertion Ellyn Scale 12 (6-20) Post-test Oxygen Flow Rate (L/ 2 min) (L/min) Oxygen Delivery Nasal Cannula Method Pulse Ox (%) 98 Pulse Rate (60-100 100 beats/min) Full Laps Walked 17 Partial Lap, Number 8 of Tiles Walked Total Distance 1011 Walked (ft) Interpretation Interpretation: The patient ambulated 1011 feet over the course of 6 minutes beginning on room air without assistive devices. Pretesting oxygen saturation was noted to be 96%on room air. With ambulation, the juliet oxygen saturation was 85%. 2 L/min of supplemental oxygen was applied, and the patient was able to complete the remainder of the test while maintaining appropriate saturations. Recommendations Recommendations: 2 L/min of supplemental oxygen should be utilized with exertion. 08/12/24 1234 O> Date _ [facility] DO CC: ~ Date Dictated: 08/12/24 1234 Date Transcribed: 08/12/241233 Identification Printing Machine Setter: Dr. [facility], Signed [facility]10-25-2023 Discharge summary Author Ravindra Young [facility] February 19, 2023 7:46pm Note Date/Time February 19, 2023 3 :44pm [facility] Medical Records Department [address] [place] [address] Emergency Department Summary 02/19/23 MR#: [id number] Acct: [id number] Name: GRIS CURRY Rep #:[id number] : 1945 78 From: Ravindra Young MD PCP: Care Physician,No Primary Status :REG ER Location: ED HPI History of Present Illness HPI Narrative: Injury left wrist status post fall approximately 2 hours prior to presentation Chief Complaint: Upper Extremity Injury Informant: patient Occured/Mechanism Mechanism/Context: Yes fall and Yes same level fall Comment: And slipped on dust since their house is being remodeled. She stepped down hit the sergey floor fell with her arm outstretched. She presents with obvious deformity to the left wrist. Onset/Context/Timing Onset: Hours Context: Sudden Onset Timing: Continuous Quality of Pain: Dull Current Severity: Mild Maximum Severity: Moderate Worsened by: Movement Relieved by: Remaining still Associated Symptoms Associated Symptoms: Positive for Loss of Funtion; Negative for Parasthesia or Weakness Narrative Narrative: Patient is a 27-year-old woman who presents with injury to her left wrist statuspost fall. Patient denies paresthesia, anesthesia motors. Patient denies priorinjury to the left wrist. She has history of wrist fracture, compound left tibial and fibular fracture as well as fracture of bones in her back. She does not have a local orthopedist since she relocated with family to from [place]. She is on no anticoagulant. She ate at phosphokinase with her son at 1215. Shedenies allergy to egg products or soy products. Tetanus Immunization: 5-10 years Prior similar symptoms: Yes Recent Illness/Hospitalization: No PFSH PFSH Medical History (Updated 02/19/23 @ 19:[address] Ravindra Young MD) Aortic aneurysm Back fracture Bowel obstruction Breast cancer Broken bones Cataracts, both eyes COPD (chronic obstructive pulmonary disease) Esophageal spasm HTN (hypertension) Migraine Osteoporosis Home Medications oxycodone-acetaminophen 5 mg-325 mg tablet 1 tab PO Q6H PRN PRN pain 5 days #20 TABLETS 02/19/23 [Rx Last Taken Unknown] Allergy/AdvReac Type Severity Reaction Status Date / Time hydrocodone Allergy Itching Verified 02/19/23 14:11 fentanyl AdvReac SENSITIVE Verified 02/19/23 14:11 hydrochlorothiazide AdvReac SUN Verified 02/19/23 14:11 SENSITIVITY Family History (Updated 02/19/23 @ 16:09 by Herlinda Laws) Father Lung cancer Surgical History (Updated 02/19/23 @ 16:09 by Herlinda Laws) H/O section H/O hemorrhoidectomy History of bowel resection History of tonsillectomy Hx of appendectomy Social History (Updated 02/19/23 @ 16:09 by Herlinda Laws) household members: family housing: house number of children: 3 pets and animals: Yes Smoking Status: Light Smoker (<10/day) substance use type: does not use ROS ROS ED Constitutional Constitutional ED: Denies chills, fever(s) or subjective Musculoskeletal Musculoskeletal: Denies back pain, myalgias or neck pain Integumentary Denies Abrasions or rash Neurologic Neurologic: Denies paresthesias or weakness Hematologic/Lymphatic Hematologic/Lymphatic: Denies easy bleeding or easy bruising EXAM Physical Exam Const Vital Signs: 02/19/23 14:07 Temperature 97.8 F Temperature Source Temporal Pulse Rate 121 H Respiratory Rate 16 Blood Pressure 144/106 H Blood Pressure Mean 118 Pulse Ox 98 Oxygen Delivery Method Room Air Positive well nourished and well developed General Appearance ED: well developed and NAD; Negative for cyanotic or diaphoretic HEENT Reports moist mucous membranes normocephalic and atraumatic Eyes PERRL and EOMs intact bilaterally Neck full ROM and supple Resp normal respiratory effort and clear to auscultation bilaterally Cardio regular rate, regular rhythm, S1 normal heart sound, S2 normal heart sound and no murmurs Extremity Negative for normal to inspection Extremity Narrative: Is a silver-fork deformity of her left wrist. Median, radial and ulnar functionintact. Sensation of her thumb and digits are intact. Capillary refill of her digits is normal. There is no subungual hematoma noted. Neuro oriented x3, CN's II-XII intact bilaterally, no focal motor deficits and no sensory deficits noted Sensorium / Orientation: alert Psych mental status grossly normal Skin Lesions: no lesions Rashes: no rashes MDM MDM MDM Narrative Medical decision making narrative: Placed per nurse protocol. Patient has a comminuted distal radial fracture withbayonet apposition. There is significant soft tissue swelling. There appears to be fracture of the ulnar styloid. Patient will require reduction. IV was established. Patient was made NPO. She received Zosyn and morphine. Will place patient in finger traps and anesthetized by hematoma block. If this is unsuccessful will sedate using propofol. Patient states she is had propofol in the past and has had no problems. Radiography Diagnostic Testing: Clinical Impression(s) from Imaging Studies Wrist X-Ray 02/19/23 14:12 IMPRESSION: Comment a fracture of the distal radial metaphysis with dorsal dislocation of the distal fracture fragment. Diffuse soft tissue swelling. Electronically Signed: Vinny Dai MD at 14:28 EDT , Procedures Other Procedures Procedure(s): Hematoma block with 10 cc of 1% lidocaine Patient required supplementation because of time it took in finger traps. An additional 5 cc of 1% lidocaine was infused. Patient was placed in finger traps. 1 to 2 pounds was added every 15 minutes for a total of 8 pounds. Patient was taken out of fingertrap. Reduction was undertaken. Patient was placed in an AP short arm splint. Postreduction film reveals loss of volar tilt. There is an intra-articular component. There is no significant offset and is acceptable. Dr. San who is on [facility] was paged. He looked at film. States it was acceptable. He would like patient to call office tomorrow to be seen next Friday or Friday. Discharge Plan Triage Chief Complaint: Upper Extremity Injury ED Provider: Ravindra Young Dx/Rx/DC Orders Clinical Impression: Intra-articular fracture of distal end of left radius with volar angulation Instructions: ED Fracture, Wrist, General Prescriptions: New oxycodone-acetaminophen [oxycodone-acetaminophen] 5-325 mg tablet 1 tab PO Q6H PRN PRN (Reason: pain) 5 Days Qty: 20 0RF Primary Care Provider: Care Physician,No Primary Referrals: Yinka San DO [Med Staff - Active Staff] - 5-7 Days [facility] Doctor,Out of [Non-Staff] - Activity Restrictions/Additional Instructions: 1. Elevate your wrist is much as possible during the day. My definition of elevation is above your nose 2. Apply ice 6-10 times a day 3. Call Dr. San's office in the morning to be seen next week on Friday or Friday Disposition Disposition: Home, Self Care What to do if you have Problems For any increased pain, shortness of breath, bleeding, nausea or vomiting, chestpain, or any unexpected problems, contact your Primary Care Provider. Call [facility] ([phone]) or report to the closest Emergency Room. Call 911 if necessary. 02/19/231945 <Electronically signed by Ravindra Young MD> Cosigner Signature (if applicable): CC: No Primary Care Physician ~ Signed [facility] Work Phone: 1(815) 696-547710-25-2023 Hospital Discharge instructions Additional Instructions 1. Elevate your wrist is much as possible during the day. My definition of elevation is above your nose 2. Apply ice 6-10 times a day 3. Call Dr. San's office in the morning to be seen next week [facility] Friday [facility] Work Phone: Evaluation noteNo assessment information available [facility] Work Phone: Evaluation note* Diagnosis Onset Date Resolution Status Aortic root dilation acute HTN (hypertension) chronic [facility] Work Phone: Progress note Author Emily Kinsey [facility] Note Date/Time February 09, 2025 1 1:29am [facility] Pulmonary Medicine [address] [place] [address] OFFICE VISIT Date of Service: 02/09/25 MR#: [id number] Acct: [id number] Name: GRIS CURRY ELMO Rep #: [id number] : 1945 Provider: LONNIE Kinsey Age/Sex: 80/F [facility] Status: Signed Assessment and Plan Assessment and Plan (1) Lung nodule, solitary: Status: Acute Plan: Deteriorated. Left lower lobe area of concern has increased in size. This previously measured 1.1 x 0.6 cm, now measuring 1.5 x 1.2 cm. This case was discussed with interventional radiology. Plan to proceed with CT biopsy after extensive discussion of risks and benefits of each. Return to the office in 3 weeks to discuss pathology test results. (2) COPD (chronic obstructive pulmonary disease): Status: Chronic Qualifiers: COPD type: emphysema Emphysema type: centrilobular Qualified Code(s): J43.2 - Centrilobular emphysema Comment: FEV1 57% Plan: She does not appear to be an exacerbation of COPD today. No need for prednisoneor antibiotic. Continue current maintenance medication, she is symptomatically controlled with the use of triple therapy on Trelegy. No additional testing at this time. Contact the office for any new or worsening symptoms. An acute visit and typically be arranged within 1-2 days. Follow-up in 3 months. (3) Chronic hypoxic respiratory failure: Status: Chronic Plan: She is using and benefiting from supplemental oxygen. She has been encouraged to continue to use supplemental oxygen with sleep. She is also asked to monitorsaturations and maintain a sat of 89 to 92%, titrating supplemental oxygen as needed. (4) Breast cancer: Status: Chronic Qualifiers: Breast location: unspecified site of breast Estrogen receptor status: unspecified Patient sex: female Laterality: unspecified laterality Qualified Code(s): C50.919 - Malignant neoplasm of unspecified site of unspecified female breast Plan: History of breast cancer approximately 30 years ago. This complicates the exam,plan, care and prognosis. Because the patient has a history of breast cancer she is nervous about a cancer diagnosis and reoccurrence. She feels more comfortable with a biopsy, even though there is more risk involved, hoping to get a more definitive answer. Orders: Orders Biopsy/Inj or Needle Placement Today R91.1 - Solitary pulmonary nodule, R91.8 - Other nonspecific abnormal finding of lung field Partial Thromboplast Time Today I48.91 - Unspecified atrial fibrillation, R91.1- Solitary pulmonary nodule Prothrombin Time w/INR Today I48.91 - Unspecified atrial fibrillation, R91.1 - Solitary pulmonary nodule Platelet Count Today R06.00 - Dyspnea, unspecified, R91.1 - Solitary pulmonary nodule Medications: Refilled albuterol sulfate 90 mcg/actuation (Ventolin HFA) 2 inhalations inhalation Q4H PRN 8.5 grams 11RF shortness of breath or wheezing Plan Details Additional Comments: This note was generated with [employer] dictation software. It may contain incorrectwords, spelling, and punctuation that were not noted in checking the note beforesigning. Portions of this documentation have been copied and pasted from previous office visit notes to provide a cohesive continuity of the history. The note has been reviewed, edited, and updated, as necessary. I have spent 40 minutes today reviewing labs, records and history. Time includes coordinating care, interpretation of tests, discussion with interventional radiology via telephone. This also includes time I spent with the patient for exam, treatment plan and education as well as documenting clinical information. Follow Up: 3 Weeks HPI 3 M FU Chief Complaint: test results HPI Comments Details: This patient presents to the office today for follow-up of her COPD with chronichypoxic respiratory failure complicated by a history of breast cancer and to discuss test results. She is ambulatory. She has not recently been seen in the ED or urgent care for any respiratory illness. She has not required any antibiotics or prednisone for any breathing problems. She is compliant with use Trelegy 1 puff daily. She does report rinsing her mouth out after each use. She denies any medication side effect such as sore throat or thrush. She has not recently needed her albuterol rescue inhaler. She is compliant with Trelegy 1 puff daily. She does report rinsing her mouth out thoroughly after each use. She denies any medication side effects such as sore throat or thrush. She is using albuterol nebulized twice weekly. She continues complete smoking cessation, quitting completely back in 2022. She uses with oxygen at 2 LPM while exercising and on exertion and with sleep. She has shortness of breath on exertion. She denies any cough, sputum production or hemoptysis. She denies any wheezing, chest tightness, chest pain or palpitations. She has not had any fever, chills or body aches. Test results personally viewed the patient: CT chest completed on January 28, 2025. There is emphysema with an area of opacification in the lingula. This has not improved since previous study. It has now become larger measuring 1.5 x 1.2 cm. No new suspicious noncalcified mass or nodule. Intake Vital Signs 10/25/24 10:19 10/15/25 08:25 Height 5 ft 4 in 5 ft 4 in Weight: 117 lb BMI 20.0 BP 152/76 H 132/80 H Blood Pressure Location Rt brachial Rt brachial Position Sitting Sitting Respiration 18 18 Pulse 73 68 Pulse Source Monitor Temp 98.0 F 97.6 F L Temperature Source Oral Temporal Artery Pulse Oximetry (%) 95 96 Oxygen Delivery Method room air room air Intake Visit Reasons: 3 M FU Chief Complaint: 1 month follow up Swimming Coach Required: No DME Vendor: [employer] Accompanied by: Self Allergies hydrocodone Allergy (Verified 02/09/25 10:35) Itching fentanyl Adverse Reaction (Verified 02/09/25 10:35) SENSITIVE hydrochlorothiazide Adverse Reaction (Verified 02/09/25 10:35) SUN SENSITIVITY Medications ?Medication ?Instructions ?Recorded ?Confirmed ?Type aspirin 81 mg tablet,delayed 81 mg PO DAILY 06/19/23 1 History release (Adult Aspirin Regimen) cholecalciferol (vitamin D3) 25 25 mcg PO DAILY 02/09/25 History mcg (1,000 unit) capsule (Vitamin D3) omega 3-fpl-xjj-fish oil 300 1 cap PO DAILY 06/19/23 1 History mg-1,000 mg capsule (Fish Oil) multivitamin 1 tab PO DAILY 07/02/2301/26 History fluticasone fur. 100 mcg-umeclid 1 ea inhalation QDAY #60 ea 05/11/24 02/09/25 Rx 62.5 mcg-vilant 25 mcg inhalat.powder (Trelegy Ellipta) atorvastatin 20 mg tablet (Lipitor) 20 mg PO QHS #90 t abs 10/25/24 02/09/25 Rx candesartan 4 mg tablet 4 mg PO DAILY #90 tabs 10/2502/09/25 Rx metoprolol succinate 25 mg 25 mg PO DAILY #90 tabs 12/2002/09/25 Rx tablet,extended release 24 hr albuterol sulfate 90 mcg/actuation 2 inh inhalation Q4 H PRN shortness 02/09/25 02/09/25 Rx aerosol inhaler (Ventolin HFA) of breath or wheezing # 8.5 grams Have you fallen in the past year?: No [facility] Medical History (Updated 02/09/25 @ 14:28 by Emily Kinsey NP, D[employer]EL FLEET MECH[employer]IC-C) Aortic root dilation Heart murmur Bowel obstruction Cataracts, both eyes Esophageal spasm Migraine Aortic aneurysm Osteoporosis HTN (hypertension) COPD (chronic obstructive pulmonary disease) Back fracture Broken bones Breast cancer Surgical History History of hysterectomy History of lumpectomy of left breast History of bowel resection H/O hemorrhoidectomy History of tonsillectomy H/O section Hx of appendectomy Family History Father Lung cancer Sister COPD (chronic obstructive pulmonary disease) Social History household members: family housing: house number of children: 3 pets and animals: Yes Smoking Status: Former smoker substance use type: does not use Review of Systems Resp Respiratory: Yes as per HPI Coding Level of Care Code Off vis,est,level 5 Diagnoses Lung nodule, solitary R91.1 Centrilobular emphysema J43.2 COPD type: emphysema Emphysema type: centrilobular Chronic hypoxic respiratory failure J96.11 Malignant neoplasm of female breast, unspecified estrogen receptor status, unspecified laterality, unspecified site of breast C50.919 Breast location: unspecified site of breast Estrogen receptor status: unspecified Patient sex: female Laterality: unspecified laterality Clinical Quality Measures Falls Risk Screening/Assistive Devices Have you fallen in the past year?: No 02/09/25 1428 <Electronically signed by Emily gonzales NP DIESEL FLEET MECHANIC-C> Date _ Emily FLEMING Cosigner Signature: Date (if applicable) CC: [place]. Armen [place] [facility] [place] Reason for referral (narrative)No reason for referral [facility] Work Phone: Chief Complaint and Reason for Visit Chief Complaint WRIST INJURY Chief Complaint EST CARE Reason for Visit Aortic root dilation HTN (hypertension) Chief Complaint EST CARE Abdominal aortic aneurysm, without rupture, unspec Aortic aneurysm of unspecified site, without ruptu SCREEN Reason for Visit Aortic root dilation HTN (hypertension) Chief Complaint Admit Date J44.9 - Chronic obstructive pulmonary di sease, uns August 10, 2024 11:07am J44.9 - Chronic obstructive pulmonary di sease, uns August 12, 2024 9:50am J44.9 - Chronic obstructive pulmonary di sease, uns August 12, 2024 12:34pm Chief Complaint Admit Date J44.9 - Chronic obstructive pulmonary di sease, uns August 10, 2024 11:07am J44.9 - Chronic obstructive pulmonary di sease, uns August 12, 2024 9:50am J44.9 - Chronic obstructive pulmonary di sease, uns August 12, 2024 12:34pm 1 y fu August 17, 2024 10: 13am Reason for Visit Admit Date Aortic root dilation August 17, 2024 10 :13am HTN (hypertension) August 17, 2024 10: 13am Chief Complaint Admit Date J44.9 - Chronic obstructive pulmonary di sease, uns August 10, 2024 11:07am J44.9 - Chronic obstructive pulmonary di sease, uns August 12, 2024 9:50am J44.9 - Chronic obstructive pulmonary di sease, uns August 12, 2024 12:34pm 1 y fu August 17, 2024 10: 13am 6 M FU September 23, 2024 10:08 am Reason for Visit Admit Date Aortic root dilation August 17, 2024 10 :13am HTN (hypertension) August 17, 2024 10: 13am Aeoqt-2-fooyfscfriz deficiency September 23, 2024 10:08am Chronic hypoxic respiratory failure September 23, 2024 10:08am COPD (chronic obstructive pulmonary dise ase) September 23, 2024 10:08am Nicotine dependence, cigarettes, in regan ssion September 23, 2024 10:08am Smoking greater than 20 pack years August 272024 10:08am Reason for Visit Admit Date Aortic root dilation August 17, 2024 10 :13am HTN (hypertension) August 17, 2024 10: 13am Klcvt-0-mtvywydmgps deficiency September 23, 2024 10:08am Chronic hypoxic respiratory failure September 23, 2024 10:08am COPD (chronic obstructive pulmonary dise ase) September 23, 2024 10:08am Smoking greater than 20 pack years August 272024 10:08am Chief Complaint Admit Date J44.9 - Chronic obstructive pulmonary di sease, uns August 10, 2024 11:07am J44.9 - Chronic obstructive pulmonary di sease, uns August 12, 2024 9:50am J44.9 - Chronic obstructive pulmonary di sease, uns August 12, 2024 12:34pm 1 y fu August 17, 2024 10: 13am 6 M FU September 23, 2024 10:08 am SMOKING 2021October 21, 2024 11:3 1am 1 M FU October 25, 2024 10:1 3am Reason for Visit Admit Date Aortic root dilation August 17, 2024 10 :13am HTN (hypertension) August 17, 2024 10: 13am Artxl-1-huyzergujkr deficiency September 23, 2024 10:08am Chronic hypoxic respiratory failure September 23, 2024 10:08am COPD (chronic obstructive pulmonary dise ase) September 23, 2024 10:08am Smoking greater than 20 pack years August 272024 10:08am Abnormal chest CT October 25, 2024 10:1 3am Reason for Visit Admit Date Aortic root dilation August 17, 2024 10 :13am HTN (hypertension) August 17, 2024 10: 13am Duhwe-6-qjokdhdiqss deficiency September 23, 2024 10:08am Chronic hypoxic respiratory failure September 23, 2024 10:08am COPD (chronic obstructive pulmonary dise ase) September 23, 2024 10:08am Smoking greater than 20 pack years August 272024 10:08am Abnormal chest CT October 25, 2024 10:1 3am Minjx-0-fgdrfooibui deficiency September 10:13am Chronic hypoxic respiratory failure October 25, 2024 10:13am COPD (chronic obstructive pulmonary dise ase) October 25, 2024 10:13am Chief Complaint Admit Date 1 M FU October 25, 2024 10:[address], HIGH RISK PT January 28, 2025 1:33pm 3 M FU February 09, 2025 1 0:30am Reason for Visit Admit Date Abnormal chest CT October 25, 2024 10:1 3am Tqwko-7-wvpnsyuqwjw deficiency September 10:13am Chronic hypoxic respiratory failure October 25, 2024 10:13am COPD (chronic obstructive pulmonary dise ase) October 25, 2024 10:13am Lung nodule, solitary February 09, 2025 10:30am Breast cancer February 09, 2025 1 0:30am Chronic hypoxic respiratory failure Octo 2024 10:30am COPD (chronic obstructive pulmonary dise ase) February 09, 2025 10:30am Advance Directives No Advanced Directives Records Found Advance Directive Response Recorded Date/ Time Living Will No February 19 4:18pm Power of Quality Manager No February 19, 2023 4:18pm Advance Directive Response Recorded Date/ Time Living Will No February 19 4:18pm Do you have a Healthcare Power of Quality Manager? No February 19, 2023 4:18pm Family History No Family History Records Found Relationship Condition Age at Onset Recorded Date/T esther father Malignant neoplasm of lung Unknown sister Chronic obstructive pulmonary disease Unk nown Summary Purpose Additional Source Comments Care Teams (unrecognized sec tion and content) Team Status: Active Member Role Status Dates No Primary Care Physician Primary Care Provider Active Team Status: Inactive Member Role Status Dates Dr. Ravindra Young MD Emergency Provider Active No Primary Care Physician Primary Care Provider Active Team Status: Active Member Role Status Dates Armen Durbin MD Primary Care Provider Active Team Status: Inactive Member Role Status Dates No Primary Care Physician Referring Provider Active Dr. Pawan Beal MD Attending Provider Active Armen Durbin MD Primary Care Provider Active Team Status: Inactive Member Role Status Dates No Primary Care Physician Primary Care Provider Active Armen Durbin MD Attending Provider Active Team Status: Inactive Member Role Status Dates Armen Durbin MD Primary Care Provider, Attending Prov ider Active Team Status: Active Member Role Status Dates Armen Durbin MD Primary Care Provider Active Dr. Pawan Beal MD Attending Provider Active Team Status: Active Member Role Status Dates Armen Durbin MD Primary Care Provide r, Attending Provider, Referring Provider Active Team Status: Inactive Member Role Status Amber Durbin MD Primary Care Provide r, Attending Provider, Referring Provider Active Team Status: Inactive Member Role Status Amber Durbin MD Primary Care Provider Active St art: July 30, 2024 End: July 30, 2024 Armen Durbin MD Attending Provider Active Start : July 30, 2024 End: July 30, 2024 Armen Durbin MD Referring Provider Active Start : July 30, 2024 End: July 30, 2024 Team Status: Inactive Member Role Status Amber Durbin MD Primary Care Provider Active St art: August 10, 2024 End: August 10, 2024 Dr. Seb Heart , DO Attending Provider Active S tart: August 10, 2024 End: August 10, 2024 Dr. Seb Heart , Referring Provider Active S tart: August 10, 2024 End: August 10, 2024 Team Status: Active Member Role Status Amber Durbin MD Primary Care Provider Active St art: August 12, 2024 Dr. Seb Heart , Attending Provider Active S tart: August 12, 2024 Dr. Seb Heart , Referring Provider Active S tart: August 12, 2024 Team Status: Active Member Role Status Amber Durbin MD Primary Care Provider Active St art: August 12, 2024 Dr. Seb Heart , Attending Provider Active S tart: August 12, 2024 Dr. Seb Heart , Referring Provider Active S tart: August 12, 2024 Dr. Seb Heart , DO Other Provider Active Start : August 12, 2024 Team Status: Inactive Member Role Status Amber Durbin MD Primary Care Provider Active St art: August 12, 2024 End: August 12, 2024 Dr. Seb Heart , Attending Provider Active S tart: August 12, 2024 End: August 12, 2024 Dr. Seb Haert , Referring Provider Active S tart: August 12, 2024 End: August 12, 2024 Team Status: Inactive Member Role Status Amber Durbin MD Primary Care Provider Active St art: August 17, 2024 End: August 17, 2024 Armen Durbin MD Referring Provider Active Start : August 17, 2024 End: August 17, 2024 Dr. Pawan Beal MD Attending Provider Active S tart: August 17, 2024 End: August 17, 2024 Team Status: Inactive Member Role Status Amber Durbin MD Primary Care Provider Active St art: September 23, 2024 End: September 23, 2024 Armen Durbin MD Referring Provider Active Start : September 23, 2024 End: September 23, 2024 Emily Kinsey DIESEL FLEET MECHANIC, D[employer] FLEET MECHANIC-C Attending Provider Active Start: September 23, 2024 End: September 23, 2024 Team Status: Inactive Member Role Status Amber Durbin MD Primary Care Provider Active St art: September 23, 2024 End: September 23, 2024 Emily Kinsey DIESEL FLEET MECHANIC, D[employer] FLEET MECHANIC-C Attending Provider Active Start: September 23, 2024 End: September 23, 2024 Emily Kinsey DIESEL FLEET MECHANIC, DIESEL FLEET MECHANIC-C Referring Provider Active Start: September 23, 2024 End: September 23, 2024 Team Status: Active Member Role/Relationship Status Amber Durbin MD Primary Care Provider Active Team Status: Inactive Member Role/Relationship Status Amber Durbin MD Primary Care Provider Active St art: July 30, 2024 End: July 30, 2024 Armen Duribn MD Attending Provider Active Start : July 30, 2024 End: July 30, 2024 Armen Durbin MD Referring Provider Active Start : July 30, 2024 End: July 30, 2024 Team Status: Inactive Member Role/Relationship Status Amber Durbin MD Primary Care Provider Active St art: August 10, 2024 End: August 10, 2024 Dr. Seb Heart , Attending Provider Active S tart: August 10, 2024 End: August 10, 2024 Dr. Seb Heart , Referring Provider Active S tart: August 10, 2024 End: August 10, 2024 Team Status: Inactive Member Role/Relationship Status Amber Durbin MD Primary Care Provider Active St art: August 12, 2024 End: August 12, 2024 Dr. Seb Heart , Attending Provider Active S tart: August 12, 2024 End: August 12, 2024 Dr. Seb Heart , Referring Provider Active S tart: August 12, 2024 End: August 12, 2024 Team Status: Active Member Role/Relationship Status Amber Durbin MD Primary Care Provider Active St art: August 12, 2024 Dr. Seb Heart , Attending Provider Active S tart: August 12, 2024 Dr. Seb Heart , Referring Provider Active S tart: August 12, 2024 Dr. Seb Heart , DO Other Provider Active Start : August 12, 2024 Team Status: Inactive Member Role/Relationship Status Amber Durbin MD Primary Care Provider Active St art: August 17, 2024 End: August 17, 2024 Armen Durbin MD Referring Provider Active Start : August 17, 2024 End: August 17, 2024 Dr. Pawan Beal MD Attending Provider Active S tart: August 17, 2024 End: August 17, 2024 Team Status: Inactive Member Role/Relationship Status Amber Durbin MD Primary Care Provider Active St art: September 23, 2024 End: September 23, 2024 Armen Durbin MD Referring Provider Active Start : September 23, 2024 End: September 23, 2024 Emily Kinsey NP, [employer] MECH[employer]IC-C Attending Provider Active Start: September 23, 2024 End: September 23, 2024 Team Status: Inactive Member Role/Relationship Status Amber Durbin MD Primary Care Provider Active St art: September 23, 2024 End: September 23, 2024 Emily Kinsey DIESEL FLEET MECHANIC, D[employer]EL FLEET MECHANIC-C Attending Provider Active Start: September 23, 2024 End: September 23, 2024 Emily Kinsey DIESEL FLEET MECHANIC, D[employer] FLEET MECHANIC-C Referring Provider Active Start: September 23, 2024 End: September 23, 2024 Team Status: Active Member Role/Relationship Status Amber Durbin MD Primary Care Provider Active St art: October 21, 2024 Emily Kinsey DIESEL FLEET MECHANIC, DIESEL FLEET MECHANIC-C Attending Provider Active Start: October 21, 2024 Emily Kinsey DIESEL FLEET MECHANIC, DIESEL FLEET MECHANIC-C Referring Provider Active Start: October 21, 2024 Team Status: Inactive Member Role/Relationship Status Amber Durbin MD Primary Care Provider Active St art: October 25, 2024 End: October 25, 2024 Armen Durbin MD Referring Provider Active Start : October 25, 2024 End: October 25, 2024 Emily Kinsey DIESEL FLEET MECHANIC, DIESEL FLEET MECHANIC-C Attending Provider Active Start: October 25, 2024 End: October 25, 2024 Team Status: Inactive Member Role/Relationship Status Amber Durbin MD Primary Care Provider Active St art: October 21, 2024 End: October 21, 2024 Emily Kinsey DIESEL FLEET MECHANIC, DIESEL FLEET MECHANIC-C Attending Provider Active Start: October 21, 2024 End: October 21, 2024 Emily Kinsey DIESEL FLEET MECHANIC, DIESEL FLEET MECHANIC-C Referring Provider Active Start: October 21, 2024 End: October 21, 2024 Team Status: Active Member Role/Relationship Status Amber Dubrin MD Primary care physician Active Team Status: Inactive Member Role/Relationship Status Amber Durbin MD Primary care physician Active S tart: October 25, 2024 End: October 25, 2024 Armen Durbin MD Referring Provider Active Start : October 25, 2024 End: October 25, 2024 Emily Kinsey NP, D[employer]EL FLEET MECHANIC-C Attending physician Active Start: October 25, 2024 End: October 25, 2024 Team Status: Inactive Member Role/Relationship Status Amber Durbin MD Primary care physician Active S tart: January 28, 2025 End: January 28, 2025 Emily Kinsey NP, D[employer]EL FLEET MECHANIC-C Attending physician Active Start: January 28, 2025 End: January 28, 2025 Emily Kinsey DIESEL FLEET MECHANIC, DIESEL FLEET MECHANIC-C Referring Provider Active Start: January 28, 2025 End: January 28, 2025 Team Status: Inactive Member Role/Relationship Status Amber Durbin MD Primary care physician Active S tart: January 31, 2025 End: January 31, 2025 Armen Durbin MD Attending physician Active Star t: January 31, 2025 End: January 31, 2025 Team Status: Inactive Member Role/Relationship Status Amber Durbin MD Primary care physician Active S tart: February 09, 2025 End: February 09, 2025 Armen Durbin MD Referring Provider Active Start : February 09, 2025 End: February 09, 2025 Emily Kinsey NP, D[employer] FLEET MECHANIC-C Attending physician Active Start: February 09, 2025 End: February 09, 2025 Team Status: Active Member Role/Relationship Status Amber Durbin MD Primary care physician Active S tart: February 09, 2025 Emily Kinsey NP, D[employer] FLEET MECHANIC-C Attending physician Active Start: February 09, 2025 Emily Kinsey DIESEL FLEET MECHANIC, D[employer]EL FLEET MECHANIC-C Referring Provider Active Start: February 09, 2025 Goals (unrecognized section and content) Goals may be documented in a n alternate sectionGoals may be documented in an alternate sectionGoals may be documented in an alternate sectionGoals may be documented in an alternate sectionGoals may be documented in an alternate sectionGoals may be documented in an alternate sectionGoals may be documented in an alternate sectionGoals may be documented in an alternate sectionGoals may be documented in an alternate sectionGoals may be documented in an alternate sectionGoals may be documented in an alternate sectionGoals may be documented in an alternate sectionGoals may be documented in an alternate section INFORMATION SOURCE (unrecogn ized section and content) DATE CREATED AUTHOR 02/24/2025 [facility] FOR RECORDS PERTAINING TO PATIENTS WHO ARE OR HAVE BEEN ENROLLED IN A CHEMICAL DEPENDENCY/SUBSTANCEABUSE PROGRAM, SOME INFORMATION MAY BE OMITTED. This clinical summary was aggregated from multiple sources. Caution should be exercised in using it in the provision of clinical care. This summary normalizes information from multiple sources, and as a consequence, information in this document may materially change the coding, format and clinical context of patient data. In addition, data may be omitted in some cases. CLINICAL DECISIONS SHOULD BE BASED ON THE PRIMARY CLINICAL RECORDS. [employer] provides no warranty or guarantee of the accuracy or completeness of information in this document.
--- NOTE | 2025-02-25 19:10 | RAD_ITS ---
PROCEDURE: CHEST 1 VIEW (PORTABLE) 02/25/2025 REASON FOR EXAM: PNEUMOTHORAX TECHNIQUE: Frontal view of the chest. COMPARISON: Earlier same day 02/25/2025. FINDINGS: Lungs/Pleura: Similar appearing small left apical pneumothorax. No sizable pleural effusion. Unchanged focal consolidation versus atelectasis in the left mid lung zone. Hyperinflated lungs with moderate-advanced interstitial emphysematous lung changes. Heart/Mediastinum: Mildly enlarged. Tortuous and calcified thoracic aorta. Bones/Soft tissues: No acute or aggressive osseous abnormality. Mild degenerative changes of the spine. Qualitative osteopenia. Left axillary surgical clips. Small amount of subcutaneous emphysema in the upper lateral left chest wall/axillary region. RAD/Chest 1 View (Portable) IMPRESSION: 1. Similar appearance of the small left apical pneumothorax. 2. Unchanged focal consolidation versus atelectasis in the left mid lung zone. 3. Moderate-advanced emphysematous lung changes. Reading Location: [id number]
[2025-02-25] MEDS: Budesonide Respules 0.5 MG/2 ML AMPUL.NEB. INHALATION (19:46)
[2025-02-25] MEDS: 0.9% Saline Lock 10 ML Syringe IV (20:42)
--- NOTE | 2025-02-25 20:53 | CASEMGMT ---
Care Management Face to Face with patient for initial transition planning/care coordination assessment in the ED.? This designer writer introduced self and role at [facility]. Patient alert and oriented. Patient willing to participate in assessment and is able to answer all questions appropriately.? Care providers, pharmacy, and demographics verified. Admitting Diagnosis: ?pneumothorax after biopsy Other diagnosis history: ?h/o breast cancer, COPD, hypertension, heart murmer PCP: ?Ramakrishna Specialists: ?Sly Kinsey Ofori, [place] Preferred Pharmacy: [facility] Insurance: ?Medicare Prescription Benefit: ?Yes Living Will/HPOA: ?does not have one, not interested in completing LNOK: ?sons Living Arrangements: patient lives with son, DIL, grandsons Transportation: patient drives DME: blood pressure cuff, cane, walker, shower chair, Oxygen ? through [employer] 2 L at night, PRN use during day with increased activity. HHC: none SNF/Rehab: none Community Resources: none Behavioral Health History: ?none Patient goals: Patient wishes to discharge home, denies need for home health care at this time. Patient denies any further needs or concerns at this time. Disposition Plan: admission to acute; RN CM/SW to follow for discharge planning needs that may arise. Leah Daly, PASSENGER ELEVATOR OPERATOR, KITCHEN STEWARD
[2025-02-26] VITALS (10 sets, daily range): BP systolic 90–120; BP diastolic 56–62; PULSE 65–71; RESP 16–18; TEMP 36.6–36.9; O2SAT 88–98
[2025-02-26] MEDS: 0.9% Saline Lock 10 ML Syringe IV (00:34)
--- NOTE | 2025-02-26 05:35 | RAD_ITS ---
PROCEDURE: CHEST PA AND LATERAL 02/26/2025 REASON FOR EXAM: PNEUMOTHORAX TECHNIQUE: Procedure Code: RADCXR Modality: DX Procedure: CHEST PA AND LATERAL COMPARISON: 02/25/2025 FINDINGS: There is again noted a 2.7 cm left apical pneumothorax. No tension. Again noted is opacification of the left midlung. The lungs are hyperinflated. No definite pleural effusion. Cardiomediastinal silhouette and osseous structures are similar. Surgical clips again noted of the left axilla. RAD/Chest PA and Lateral IMPRESSION: Similar-appearing left apical pneumothorax. No tension. Additional findings a s above. Reading [facility]
--- NOTE | 2025-02-26 06:35 | PN.SURG_ITS ---
Subjective Subjective Patient is comfortable with no shortness of breath or chest pain Objective Data Objective Data Vital Signs: Vital Signs Temp Pulse Resp BP Pulse Ox O2 Del Method O2 Flow Rate 97.8 F 65 16 107/59 L 98 Nasal Cannula 2.5 02/26/25 05:26 02/26/25 05:26 02/26/25 05:26 02/26/25 05:26 02/26/25 05:26 02/26/25 05:26 02/26/25 05:26 Oxygen Flow Rate (L/min) 2.5 Oxygen Delivery Method Nasal Cannula Weight: 116 lb Body Mass Index (BMI) 19.9 Intake & Output: Intake and Output for Last 24 Hours 02/24/25 02/25/25 02/26/25 23:59 23:59 23:59 Intake Total 550 / 950 400 / 400 Balance 550 / 950 400 / 400 Radiography Diagnostic Testing: Radiology Impression Chest X-Ray 02/25/25 14:50 IMPRESSION: 1. Severe emphysema 2. Worsening pneumothorax. Approximately 20%. Atelectasis in the lingula. Reading Location: [id number] Chest X-Ray 02/25/25 19:10 IMPRESSION: 1. Similar appearance of the small left apical pneumothorax. 2. Unchanged focal consolidation versus atelectasis in the left mid lung zone. 3. Moderate-advanced emphysematous lung changes. Reading Location: [facility] Chest X-Ray 02/26/25 05:35 IMPRESSION: Similar-appearing left apical pneumothorax. No tension. Additional findings as above. [facility] Physical Exam Const oriented x3 and no apparent distress Resp normal respiratory effort and clear to auscultation bilaterally GI soft to palpation and non-tender Assessment & Plan Assessment/Plan (1) Pneumothorax after biopsy: PLAN: The patient had a pneumothorax on the left after a chest biopsy. It was an abnormal appearing pneumothorax as the apical area was down but the rest of the lung stayed inflated. Unsure if she has scar tissue in the pleura. The x- ray today shows stable pneumothorax in the apex. It has not grown overnight. I think she is stable to go home and follow-up with me this week with a chest x- ray. Josesito Valentine MD Pager: [facility] [address] [place] [address], [address] [place] [phone] Office:
[2025-02-26] MEDS: Budesonide Respules 0.5 MG/2 ML AMPUL.NEB. INHALATION (07:05)
[2025-02-26] MEDS: Metoprolol(XL)Succ 25 MG Tablet PO (08:06)
[2025-02-26] MEDS: Cholecalciferol (VIT D3) 25 MCG TABLET (1,000 UNITS) PO (08:06)
--- NOTE | 2025-02-26 10:05 | PCM.DC ---
Discharge Instructions DC O2, CPAP, BIPAP needs Home O2 Discharge instructions: No Dressing / Incision Discharge Activity: Return to Normal Activity Dressing / Incision Call your doctor if you observe: Fever of 101 or Higher, Shortness of breath, Dizziness, Fainting spells, Swelling in the ankles, Chest pain and Increased palpitations (irregular heartbeat) Follow Up Care Test Results: Test results from this visit will be discussed in further detail at your follow-up appointment, if applicable. Discharge Plan Admission Admit Date/Time: 02/25/25 16:35 Attending Provider: Yinka Ca Primary Care Provider: Armen Durbin Consulting Providers: Josesito Valentine; Jeovanny Ma Discharge Orders/Prescriptions Prescriptions: Continued aspirin [Adult Aspirin Regimen] 81 mg tablet,delayed release (DR/EC) 81 mg PO DAILY cholecalciferol (vitamin D3) [Vitamin D3] 25 mcg (1,000 unit) capsule 25 mcg PO DAILY omega 0-vlx-ibq-fish oil [Fish Oil] 300-1,000 mg capsule 1 cap PO DAILY multivitamin Tablet 1 tab PO DAILY albuterol sulfate [Ventolin HFA] 90 mcg/actuation HFA aerosol inhaler 2 inh inhalation Q4H PRN (Reason: shortness of breath or wheezing) Qty: 8.5 11RF Trelegy Ellipta 100-62.5-25 mcg blister with device 1 ea inhalation QDAY Qty: 60 11RF candesartan 4 mg tablet 4 mg PO DAILY Qty: 90 3RF atorvastatin [Lipitor] 20 mg tablet 20 mg PO QHS Qty: 90 3RF metoprolol succinate 25 mg tablet extended release 24 hr 25 mg PO DAILY Qty: 90 3RF Other Ambulatory Orders: Chest 2 V w/ Apical/Lordotic (Routine) Timeframe: 5 Days Facility: [facility] - Location: [facility] Ordered By: Dr. Josesito Valentine Referrals / Follow Up: Josesito Valentine MD [Med Staff - Active Staff, General Surgery] Armen Durbin MD [Primary Care Provider, Family Practice] Disposition Disposition (needs filled in before D/C Order can be placed): Home, Self Care
--- NOTE | 2025-02-26 12:08 | CASEMGMT ---
ISHMAEL RADFORD NOTE: ISHMAEL RADFORD to room. Introduced self and role. Pt resting in bed w/O2 in place. Pt states she wears O2 @ 2 L/M w/exertion and @ HS. Pt confirms she has a POC in her room to dc home on. She has a concentrator @ home and an emergency back-up tank @ home. She has a pulse ox @ home. Home O2 amb testing has been completed. Pt does not qualify for increase in her home O2 at this time. Pt states Dr Valentine instructed her to call to schedule a f/u appt in his office on . She has his office # and plans to call the office 1st thing in the morning to schedule that. Pt states she was also instructed by Dr Valentine to use home O2 continuously @ discharge @ 2 L/M until she has a f/u appt w/Dr Valentine on . to help with the pneumothorax, which she plans to do. She is aware she is to have a CXR done on Fri. In addition, pt states she has a f/u appt scheduled w/Marvin Kinsey NP, pulmonology coming up mid-Feb as well, for biopsy results. She denies having any questions and denies having any concerns w/discharging home today. Radha KAUR RN, CM
--- NOTE | 2025-02-26 14:42 | PCM.DC.SUM ---
Providers Date of Admission: 02/25/25 Primary Care Physician: Armen Durbin MD Consultations 02/25/25 17:06 Consult: General Surgery Routine Consulting Provider: Josesito Valentine Reason for Consult: pneumothorax EMERGENT Consult: No MD Notified: Yes Date Notified: 02/25/25 Time Notified: 16:38 Method of Notification: Verbal Reason For Visit: PNEUMOTHORAX Diagnosis Discharge Diagnosis (1) Pneumothorax after biopsy: Status: Acute Code(s): J95.811 - Postprocedural pneumothorax Medications at Discharge Home Medications aspirin 81 mg tablet,delayed release (Adult Aspirin Regimen) 81 mg PO DAILY 06/19/23 cholecalciferol (vitamin D3) 25 mcg (1,000 unit) capsule (Vitamin D3) 25 mcg PO DAILY 06/19/23 omega 5-vcr-hgr-fish oil 300 mg-1,000 mg capsule (Fish Oil) 1 cap PO DAILY 06/19/23 multivitamin 1 tab PO DAILY 07/02/23 fluticasone fur. 100 mcg-umeclid 62.5 mcg-vilant 25 mcg inhalat.powder (Trelegy Ellipta) 1 ea inhalation QDAY #60 ea 05/11/24 atorvastatin 20 mg tablet (Lipitor) 20 mg PO QHS #90 tabs 10/25/24 candesartan 4 mg tablet 4 mg PO DAILY #90 tabs 10/25/24 metoprolol succinate 25 mg tablet,extended release 24 hr 25 mg PO DAILY #90 tabs 02/02/25 albuterol sulfate 90 mcg/actuation aerosol inhaler (Ventolin HFA) 2 inh inhalation Q4H PRN shortness of breath or wheezing #8.5 grams 02/09/25 Hospital Course Operations None Procedures None Summary of Care Provided Minutes Spent on Discharge: 33 Hospital Course: Per HPI: GRIS CURRY, is a 80 F who presents with back pain. Patient underwent a CT-guided lung biopsy for mass today. The collected good specimens however patient developed a pneumothorax and was sent to the emergency room. Subsequent x-ray showed gradual increased size of the pneumothorax. Patient was placed on oxygen. Patient was seen in consultation by Dr. Valentine who advised conservative management this time and repeat the chest x-ray at 1900 today. Patient denies any chest pain but stated that she just had this very small area in her posterior back that hurt after the biopsy. Hospital Course: 1. Left apical pneumothorax after lung biopsy?80-year-old female presented to the hospital for an outpatient lung biopsy that ended up causing pneumothorax. Multiple chest x-rays over the last 24 hours have demonstrated stable pneumothorax without expansion. She was evaluated by general surgery today who felt that he would be stable for her to be discharged home especially since she has oxygen at home. He is already ordered an x-ray for next Friday as she has an appointment to see him on . She is denying any chest pain today and is not short of breath beyond her usual. I discussed with her the possibility for discharge and she expressed understanding of the risks and benefits of going home and would like to go home today. We did discuss indications to come back to the hospital which she was in agreement with. 2. COPD, hyperlipidemia, essential hypertension all chronic medical conditions which complicate her care. Her home medications were continued where appropriate Physical Exam Narrative General: Alert, Oriented x3, Cooperative, No apparent distress HEENT: Atraumatic, PERRLA, EOMI, Normocephalic Oral: Moist Mucosa Neck: Supple, No JVD Lungs: Diminished, Normal air movement, No rhonchi, No wheeze, No rales Cardiovascular: Regular rate, Regular Rhythm, Normal S1, Normal S2, No murmurs Abdomen: Soft, Non Tender, Non-Distended, No Hepato-splenomegaly Extremities: No edema, Capillary Refill Less than 3 Seconds Skin: No rashes, No breakdown Musculoskeletal: No Tenderness to Palpation of Joints or Extremities Neurological: No focal neurological deficits, moves all extremities Psych/Mental Status: Normal Affect, Appropriate Weight / BMI Weight Weight: 116 lb Body Mass Index (BMI) 19.9 Radiography Diagnostic Testing: Radiology Impression Chest X-Ray 02/25/25 14:50 IMPRESSION: 1. Severe emphysema 2. Worsening pneumothorax. Approximately 20%. Atelectasis in the lingula. Reading Location: [id number] Chest X-Ray 02/25/25 19:10 IMPRESSION: 1. Similar appearance of the small left apical pneumothorax. 2. Unchanged focal consolidation versus atelectasis in the left mid lung zone. 3. Moderate-advanced emphysematous lung changes. Reading Location: [facility] Chest X-Ray 02/26/25 05:35 IMPRESSION: Similar-appearing left apical pneumothorax. No tension. Additional findings as above. Reading Location: [facility] D/C Instructions Call your doctor if you observe: Fever of 101 or Higher, Shortness of breath, Dizziness, Fainting spells, Swelling in the ankles, Chest pain and Increased palpitations (irregular heartbeat) DC O2, CPAP, BIPAP Needs Home O2 Discharge instructions: No Meaningful Use Info Meaningful Use Meaningful Use Diagnoses (Choose all that apply): None applicable Discharge Plan Admission Admit Date/Time: 02/25/25 16:35 Attending Provider: Yinka Ca Primary Care Provider: Armen Durbin Consulting Providers: Josesito Valentine; Jeovanny Ma Discharge Orders/Prescriptions Prescriptions: Continued aspirin [Adult Aspirin Regimen] 81 mg tablet,delayed release (DR/EC) 81 mg PO DAILY cholecalciferol (vitamin D3) [Vitamin D3] 25 mcg (1,000 unit) capsule 25 mcg PO DAILY omega 4-uwy-xmm-fish oil [Fish Oil] 300-1,000 mg capsule 1 cap PO DAILY multivitamin Tablet 1 tab PO DAILY albuterol sulfate [Ventolin HFA] 90 mcg/actuation HFA aerosol inhaler 2 inh inhalation Q4H PRN (Reason: shortness of breath or wheezing) Qty: 8.5 11RF Trelegy Ellipta 100-62.5-25 mcg blister with device 1 ea inhalation QDAY Qty: 60 11RF candesartan 4 mg tablet 4 mg PO DAILY Qty: 90 3RF atorvastatin [Lipitor] 20 mg tablet 20 mg PO QHS Qty: 90 3RF metoprolol succinate 25 mg tablet extended release 24 hr 25 mg PO DAILY Qty: 90 3RF Other Ambulatory Orders: Chest 2 V w/ Apical/Lordotic (Routine) Timeframe: 5 Days Facility: [facility] - Location: [facility] Ordered By: Dr. Josesito Valentine Referrals / Follow Up: Josesito Valentine MD [Med Staff - Active Staff, General Surgery] Armen Durbin MD [Primary Care Provider, Family Practice] Disposition Disposition (needs filled in before D/C Order can be placed): Home, Self Care Charges/Coding Visit Charges Inpatient E&M: 00216 Disch Hosp >30min
== END 2025-02-26 13:23 | disposition home or self-care (01) ==
LOC: ED 16:22 → MS3 16:45
PROVIDERS: Emergency Provider Student in an Organized Health Care Education/Training Program; PCP Family Medicine; Visit Provider Family Medicine
DX: J95.811 Postprocedural pneumothorax (principal); J96.11 Chronic respiratory failure with hypoxia; J43.2 Centrilobular emphysema; I48.91 Unspecified atrial fibrillation; F17.210 Nicotine dependence, cigarettes, uncomplicated; R91.8 Other nonspecific abnormal finding of lung field; J98.11 Atelectasis; Z79.82 Long term (current) use of aspirin; I10 Essential (primary) hypertension; E78.5 Hyperlipidemia, unspecified; R91.1 Solitary pulmonary nodule; Y84.8 Other medical procedures as the cause of abnormal reaction of the patient, or of later complication, without mention of misadventure at the time of the procedure; Z79.899 Other long term (current) drug therapy; Z86.79 Personal history of other diseases of the circulatory system; Z99.81 Dependence on supplemental oxygen; Z79.51 Long term (current) use of inhaled steroids
CPT/HCPCS: 32408; 36415; 71045; 71046; 77012; 85025; 85610; 85730; 88172; 88307; 88313; 88341; 88342; 94640; 94668; 99156; 99157; 99221; 99283; A4216; G0378

== ENCOUNTER → 2025-02-25 | Outpatient (CLI) | payer MEDICARE, OTHER, SELFPAY ==
[2025-02-25] VITALS (19 sets, daily range): BP systolic 110–173; BP diastolic 33–120; PULSE 60–77; RESP 14–26; O2SAT 87–98; BMI 20.5
[2025-02-25 08:18] LABS: Hematocrit 43.5 % (37-47); Hemoglobin 14.7 g/dL (12.0-15.0); Immature Granulocytes Count 0.030 X10^3/uL (0.0-0.0); Mean Corp Hgb Conc 33.8 g/dL (32-36); Mean Corpuscular Volume 98.0 fL (81-99); Mean Platelet Vol. 8.8 fl (6.2-12.0); NRBC Flagged by Analyzer 0 % (0-5); Platelet Count 317 K/mm3 (150-450); RBC Distribution Width CV 12.9 % (11.6-14.6); RBC Distribution Width SD 46.4 fl (35.1-43.9); Red Blood Count 4.44 M/mm3 (4.2-5.4); White Blood Count 8.0 K/mm3 (4.4-11.0)
[2025-02-25 08:20] LABS: Prothrombin Time (Protime)PT. 13.5 SECONDS (11.7-14.9)
[2025-02-25 08:21] LABS: Partial Thromboplast Time 39.5 Seconds (24.1-36.2)
[2025-02-25] MEDS: Midazolam 2 MG/2 ML Syringe IV ×2 (09:26→09:42)
[2025-02-25] MEDS: 0.9% Normal Saline (250mL Bag) 250 ML 15 ML IV (09:26)
[2025-02-25] MEDS: 0.9% Saline Lock 10 ML Syringe IV (09:26)
[2025-02-25] MEDS: Lidocaine 2% (20 ml mdv) 20 ML Vial INFILT (09:42)
== END | disposition home or self-care (01) ==
LOC: CT 07:57
PROVIDERS: Radiology Nuclear Radiology; PCP Family Medicine; Referring Provider Nurse Practitioner Acute Care; Visit Provider Nurse Practitioner Acute Care
DX: Z01.812 Encounter for preprocedural laboratory examination (principal); R91.1 Solitary pulmonary nodule; R91.8 Other nonspecific abnormal finding of lung field
CPT/HCPCS: 32408; 36415; 71046; 77012; 85025; 85610; 85730; 88172; 88307; 88313; 99156; 99157; A4216

== ENCOUNTER → 2025-03-02 | Outpatient (CLI) | payer MEDICARE, OTHER, SELFPAY ==
--- NOTE | 2025-03-02 09:07 | RAD_ITS ---
PROCEDURE: RAD/Chest 2 V w/ Apical/Lordotic
== END | disposition home or self-care (01) ==
LOC: MTRAD 09:07
PROVIDERS: PCP Family Medicine; Referring Provider Surgery; Visit Provider Surgery
DX: J95.811 Postprocedural pneumothorax (principal)
CPT/HCPCS: 71047

== ENCOUNTER → 2025-03-08 | Outpatient (CLI) | payer MEDICARE, OTHER, SELFPAY ==
--- NOTE | 2025-03-08 12:15 | PET_ITS ---
PROCEDURE: PET/PET/CT Tumor Base -Thigh Init
== END | disposition home or self-care (01) ==
PROVIDERS: PCP Family Medicine; Referring Provider Nurse Practitioner Acute Care; Visit Provider Nurse Practitioner Acute Care
DX: C34.32 Malignant neoplasm of lower lobe, left bronchus or lung (principal); Z87.891 Personal history of nicotine dependence
CPT/HCPCS: 78815; A9552